=== PATIENT | female | born 1960 | race Caucasian/White ===

== ENCOUNTER 2023-12-19 22:34 | Inpatient (IN) | payer MEDICAID ==
[~2023-12-19] VITALS: Ht 162.6 cm; Wt 121.8 kg
[2023-12-19] MEDS: SODIUM CHLORIDE 0.9% 1,000 ML IV ONE (22:45)
[2023-12-19] MEDS: MORPHINE SULFATE 4 MG/ML SYR/VIAL IV ONE (22:45)
[2023-12-19] MEDS: ONDANSETRON HCL 4 MG/2 ML VIAL IV ONE (22:45)
--- NOTE | 2023-12-19 22:53 | ED.PDOC ---
GI ASSESSMENT HPI Comments 63-year-old female who came to ER via EMS for abdominal pain. Patient states she has been experiencing left upper quadrant abdominal pain since yesterday. Patient was seen at [facility], diagnostic made showing unremarkable results. Discharge improved. At home, patient made a sudden movement, and she started experiencing again upper quadrant abdominal pain, left-sided, associated now with bouts of nausea and vomiting. She denies any urinary symptoms. Denies any fever. Patient was given Zofran by paramedics while EN route to the emergency room. Chief Complaint: Abdominal pain Time Seen by MD: 22:52 Primary Care Provider: CLEVE Reviewed Notes: Nurses Notes Allergies: Coded Allergies: Penicillins (Verified Allergy, Unknown, 01/03/15) Information Source: Patient, Emergency Med Personnel Mode of Arrival: EMS Timing: Hours Duration: Intermittent Prehospital treatment: None Quality: Aching, Sharp Vomitus: Watery Stool: Normal Severity: Moderate Recent: None Recent Hx of: Abdominal Surgery Pain Location: LUQ Modifying Factors: Nothing Associated sign and symptoms: Nausea, Vomiting, Abdominal Pain Past Medical History PAST MEDICAL HISTORY: Kidney Stones Surgical History: Hernia Repair THIRD RIGGER History: No Pertinent THIRD RIGGER History Family History Family History: Reviewed,noncontributory to illness Social History Smoker: Non-Smoker Alcohol: Denies ETOH Use Drugs: Denies Drug Use Lives In: Home Constitutional: denies: chills, diaphoresis, fatigue, fever, malaise, sweats, weakness, others EENTM: denies: blurred vision, double vision, ear bleeding, ear discharge, ear drainage, ear pain, ear ringing, eye pain, eye redness, hearing loss, mouth pain, mouth swelling, nasal discharge, nose bleeding, nose congestion, nose pain, photophobia, tearing, throat pain, throat swelling, voice changes, others Respiratory: denies: cough, hemoptysis, orthopnea, SOB at rest, shortness of breath, SOB with excertion, stridor, wheezing, others Cardiovascular: denies: chest pain, dizzy spells, diaphoresis, Dyspnea on exertion, edema, irregular heart beat, left arm pain, lightheadedness, palpitations, PND, syncope, others Gastrointestinal: reports: abdominal pain, nausea, poor appetite, vomiting; denies: abdomen distended, blood streaked bowels, constipated, diarrhea, dysphagia, difficulty swallowing, hematemesis, melena, poor fluid intake, rectal bleeding, rectal pain, others Genitourinary: denies: abnormal vagina bleeding, burning, dyspareunia, dysuria, flank pain, frequency, hematuria, incontinence, pain, , vagina disch arge, urgency, others Neurological: denies: dizziness, fainting, headache, left sided numbness, left sided weakness, numbness, paresthesia, pre-existing deficit, right sided numbness, right sided weakness, seizure, speech problems, tingling, tremors, weakness, others Musculoskeletal: denies: back pain, gout, joint pain, joint swelling, muscle pain, muscle stiffness, neck pain, others Integumetry: denies: bruises, change in color, change in hair/nails, dryness, laceration, lesions, lumps, rash, wounds, others Allergic/Immunocompromised: denies: Difficulty Healing, Frequent Infections, Hives, Itching, others Hematologic/Lymphatic: denies: anemia, blood clots, easy bleeding, easy bruising, swollen glands, others Endocrine: denies: excessive hunger, excessive sweating, excessive thirst, excessive urination, flushing, intolerance to cold, intolerance to heat, unexplained weight gain, unexplained weight loss, others Psychiatric: denies: anxiety, bipolar disorder, depression, hopeless, panic disorder, schizophrenia, sleepless, suicidal, others Physical Exam General Appearance: No Apparent Distress, Normal HEENT: Normal ENT Inspection, Pharynx Normal, TMs Normal Neck: Full Range of Motion, Non-Tender, Normal, Normal Inspection Respiratory: Chest Non-Tender, Lungs Clear, No Accessory Muscle Use, No Respiratory Distress, Normal Breath Sounds Cardiovascular: No Edema, No JVD, No Murmur, No Gallop, Normal Peripheral Pulses, Regular Rate/Rhythm Breast Exam: Deferred Gastrointestinal: LUQ, No Organomegaly, No Pulsatile Mass, Normal Bowel Sounds, Soft, Tenderness Genitalia: Deferred Pelvic: Deferred Rectal: Deferred Extremities: No calf tenderness, Normal capillary refill, Normal inspection, Normal range of motion, Non-tender, No pedal edema Musculoskeletal : Apperance: Normal Neurologic: Alert, as400 operator II-XII nml as Tested, No Motor Deficits, Normal Affect, Normal Mood, No Sensory Deficits Cerebellar Function: Normal Reflexes: Normal Skin: Dry, Normal Color, Warm Lymphatic: No Adenopathy Was a procedure done? Was a procedure done?: No GI differential Dx Differential Diagnosis: Bowel Obstruction, Diverticular disease, Gastritis/PUD, Gastroenteritis, Pancreatitis, UTI, Urolithiasis X-Ray, Labs, Meds, VS Vital Signs Date Time Temp Pulse Resp B/P (MAP) Pulse Ox O2 Delivery O2 Flow Rate FiO2 12/19/23 23:50 100 12/19/23 23:49 101 14 126/44 12/19/23 23:12 98.9 101 17 147/74 (98) 97 98.9 12/19/23 22:51 103 12/19/23 22:45 101 15 141/74 12/19/23 22:34 97.2 104 20 166/108 (127) 98 Lab Test 12/19/23 23:10 Range/Units White Blood Count 14.4 H 4.4-10.8 10^3/uL Red Blood Count 4.07 4.0-5.20 10^6/uL Hemoglobin 11.9 L 12.2-16.2 g/dL Hematocrit 36.5 36.0-46.0 % Mean Corpuscular Volume 89.8 80.0-100.0 fL Mean Corpuscular Hemoglobin 29.2 28.0-32.0 pg Mean Corpuscular Hemoglobin Concent 32.6 32.0-36.0 g/dL Red Cell Distribution Width 13.4 11.8-14.3 % Platelet Count 320 140-450 10^3/uL Mean Platelet Volume 7.4 6.9-10.8 fL Neutrophils (%) (Auto) 76.6 37.0-80.0 % Lymphocytes (%) (Auto) 16.0 10.0-50.0 % Monocytes (%) (Auto) 6.4 0.0-12.0 % Eosinophils (%) (Auto) 0.4 0.0-7.0 % Basophils (%) (Auto) 0.6 0.0-2.0 % Neutrophils # (Auto) 11.1 H 1.6-8.6 10 ^3/uL Lymphocytes # (Auto) 2.3 0.4-5.4 10 ^3/uL Monocytes # (Auto) 0.9 0-1.3 10 ^3/uL Eosinophils # (Auto) 0.1 0-0.8 10 ^3/uL Basophils # (Auto) 0.1 0-0.2 10 ^3/uL Nucleated Red Blood Cells 0.0 % Sodium Level 140 136-145 mmol/L Potassium Level 4.3 3.5-5.1 mmol/L Chloride Level 107 98-107 mmol/L Carbon Dioxide Level 22 20-31 mmol/L Anion Gap 11 5-15 Blood Urea Nitrogen 18 9-23 mg/dL Creatinine 1.13 H 0.550-1.02 mg/dL Glomerular Filtration Rate Calc 55 >90 mL/min BUN/Creatinine Ratio 15.9 10.0-20.0 Serum Glucose 143 H 74-106 mg/dL Calcium Level 9.9 8.7-10.4 mg/dL Total Bilirubin 1.0 0.2-1.0 mg/dL Aspartate Amino Transferase (AST) 27 13-40 U/L Alanine Aminotransferase (ALT) 16 7-40 U/L Alkaline Phosphatase 104 46-116 U/L Troponin I High Sensitivity 1250 *H </=34 ng/L Total Protein 7.1 5.7-8.2 g/dL Albumin 4.8 3.2-4.8 g/dL Current Medications Medications (Trade) Dose Ordered Sig/Jessica Route Start Time Stop Time Status Last Admin Sodium Chloride 1,000 ml @ 1,000 mls/hr Q1H ONCE IV 12/19/23 22:45 12/19/23 23:44 DC 12/19/23 22:45 Ondansetron HCl (Zofran) 4 mg ONCE ONCE IV 12/19/23 22:45 12/19/23 22:46 DC 12/19/23 22:45 Morphine Sulfate 4 mg ONCE ONCE IV 12/19/23 22:45 12/19/23 22:46 DC 12/19/23 22:45 Time of 1ST Reevaluation: 22:48 Reevaluation 1ST: Unchanged Patient Education/Counseling: Diagnosis, Treatment Family Education/Counseling: No Family Present Departure 1 Departure Time of Disposition: 01:31 (Patient with a large kidney mass and elevated troponin. Patient will be admitted for further workup) Impression: Primary Impression: Left kidney mass Additional Impressions: NSTEMI (non-ST elevated myocardial infarction) Intractable abdominal pain Disposition: ADMITTED INPATIENT Admit to: Med Surg Condition: Guarded Critical Care Note Critical Care Time?: Yes Critical care comment: Intractable abdominal pain Authorized and Performed by: Joide Wilburn MD Total critical care time: Approximately 48 minutes Due to a high probability of clinically significant, life threatening deterioration, the patient required my highest level of preparedness to intervene emergently and I personally spent this critical care time directly and personally managing the patient. This critical care time included obtaining a history; examining the patient; pulse oximetry; ordering and review of studies; arranging urgent treatment with development of a management plan; evaluation of patient's response to treatment; frequent reassessment; and, discussions with other providers. This critical care time was performed to assess and manage the high probability of imminent, life-threatening deterioration that could result in multi-organ failure. It was exclusive of separately billable procedures and treating other patients and teaching time. Please see my other sections and the rest of the note for further information on patient assessment and treatment. Stability Stability form required: No Heart Score Heart Score: Heart Score Response (Comments) Value History N/A 0 EKG N/A 0 Age N/A 0 Risk Factors N/A 0 Troponin N/A 0 Total 0 I personally scribed for JODIE WILBURN MD ([email or web address]) on 12/19/23 at 22:52. Electronically submitted by Vinh Gomez ([email or web address]). JODIE WILBURN MD Dec 19, 2023 22:52
[2023-12-19 23:26] LABS: Basophils # (auto) 0.1 10 ^3/uL (0-0.2); Basophils % (auto) 0.6 % (0.0-2.0); Eosinophils # (auto) 0.1 10 ^3/uL (0-0.8); Eosinophils % (auto) 0.4 % (0.0-7.0); Hematocrit 36.5 % (36.0-46.0); Hemoglobin 11.9 g/dL (12.2-16.2); Lymphocytes # (auto) 2.3 10 ^3/uL (0.4-5.4); Mean Corpuscular Hemoglobin 29.2 pg (28.0-32.0); Mean Corpuscular Hgb Conc. 32.6 g/dL (32.0-36.0); Mean Corpuscular Volume 89.8 fL (80.0-100.0); Monocytes # (auto) 0.9 10 ^3/uL (0-1.3); Monocytes % (auto) 6.4 % (0.0-12.0); Neutrophils # (auto) 11.1 10 ^3/uL (1.6-8.6); Neutrophils % (auto) 76.6 % (37.0-80.0); Platelet Count (auto) 320 10^3/uL (140-450); Red Blood Cells 4.07 10^6/uL (4.0-5.20); Red Cell Distribution Width 13.4 % (11.8-14.3); White Blood Cell 14.4 10^3/uL (4.4-10.8)
[2023-12-19 23:52] LABS: Alanine Aminotransferase 16 U/L (7-40); Albumin 4.8 g/dL (3.2-4.8); Alkaline Phosphatase 104 U/L (46-116); Anion Gap 11 (5-15); Aspartate Aminotransferase 27 U/L (13-40); BUN/Creatinine Ratio 15.9 (10.0-20.0); Blood Urea Nitrogen 18 mg/dL (9-23); Calcium 9.9 mg/dL (8.7-10.4); Carbon Dioxide 22 mmol/L (20-31); Chloride 107 mmol/L (98-107); Glucose 143 mg/dL (74-106); Potassium 4.3 mmol/L (3.5-5.1); Sodium 140 mmol/L (136-145)
[2023-12-19 23:53] LABS: Total Protein 7.1 g/dL (5.7-8.2)
[2023-12-20] VITALS (8 sets, daily range): BP systolic 134–145; BP diastolic 57–73; PULSE 70–105; RESP 16–20; TEMP 97.8–98.7; O2SAT 93–100
[2023-12-20] MEDS: IOHEXOL 300 MG/ML 100ML BOTTLE IJ ONE ×2 (00:19→14:18)
[2023-12-20] MEDS ORDERED: HYDROcodone-ACET 5/325MG TAB PO PRN ×2 (01:00→01:15)
[2023-12-20] MEDS ORDERED: DEXTROSE (50%) 50ML SYRG IV PRN (01:00)
[2023-12-20] MEDS: levoFLOXacin 500MG 100 ML IV ONE (01:00)
[2023-12-20] MEDS ORDERED: NITROGLYCERIN 0.4 MG SL TAB SL PRN ×2 (01:00→01:15)
[2023-12-20] MEDS ORDERED: ACETAMINOPHEN 325 MG TAB PO PRN (01:15)
[2023-12-20] MEDS ORDERED: MORPHINE SULFATE INJ 2 MG/ml SYRG IV PRN (01:15)
[2023-12-20] MEDS: SODIUM CHLORIDE 0.9% 1,000 ML IV SCH (01:15)
[2023-12-20] MEDS ORDERED: ONDANSETRON HCL 4 MG/2 ML VIAL IV PRN (01:15)
--- NOTE | 2023-12-20 01:22 | DVH ---
Exam: CT CT AB PEL WO CON-NO ORAL OR IV History: llq pain Comparison Study: None available at time of dictation. Technique: Multidetector spiral CT of the abdomen was performed from lung bases to pubic symphysis. Imaging was performed without IV contrast. Axial, coronal and sagittal multiplanar reformats were ob tained from the axial data set by the technologist. Radiation Dose : 1. Abdomen/Pelvis: CTDIvol 28 mGy, DLP 1469 mGy*cm. Findings: Evaluation of solid organs is limited due to lack of intravenous contrast use. Lung Bases: No acute or significant lung base finding. Normal heart size. No pleural or pericardial effusion. Liver: The liver is normal in size. No focal lesions. Gallbladder and Biliary Tree: Unremarkable Spleen: Unremarkable Pancreas: The pancreas is grossly normal in appearance. Adrenal Glands: Unremarkable Kidneys: Right kidney 3 cm hypodense lesion. The left kidney demonstrates several hypodense lesions a nd internal calcification. There is mild left perirenal fat stranding. The left kidney superior pole demonstrates a potential mass measuring 6.76 cm. Bladder: Grossly unremarkable for degree of distention. Bowel: The stomach is grossly normal in appearance. Small bowel and colon are normal in caliber and d istribution. Normal appendix is visualized in the right lower quadrant without findings of appendici tis. Sigmoid colon diverticulosis. Ascites: Absent Lymphadenopathy: No mesenteric, retroperitoneal or periportal lymphadenopathy. Abdominal Wall and Mesentery: Unremarkable. Vasculature: The visualized abdominal aorta is normal in size and caliber. Evaluation of abdominal a nd pelvic vessels is limited due to lack of intravenous contrast. Pelvic Organs: Unremarkable Musculoskeletal: No aggressive focal bony lesions, acute fractures or dislocation. Severe bilateral h ip degenerative changes. Large osteophytes in the lower lumbar spine. IMPRESSION: Left kidney superior pole mass measuring 6.7 cm in maximum diameter with lobulated contours atrial ca lcifications. Limited evaluation without IV contrast. This is concerning for malignancy until proven otherwise. Right kidney 3 cm hypodense lesion which can also be further evaluated with contrast-enhanced MRI or ultrasound. Ancillary findings as described above.
--- NOTE | 2023-12-20 01:30 | DVHHPRES ---
History of Present Illness Resident Creating Document: LONNIE HUBER RESIDENT History of Present Illness This is a 63-year-old female with past medical history of hypertension, kidney stone, prediabetes presented to the ED with a chief complaint of severe left flank pain for 8 hours prior to this admission. According to the patient the pain was crampy in nature 20/10 localized to the left flank with no aggravating and relieving factor and associated with vomiting. First she felt the pain on Saturday and went to [facility] where she received pain management and two prescription 1 for ibuprofen and another one for narcotic that is currently on back order and she was advised to return if the pain persisted. She reports having a bowel movement on Saturday but none since which she believes may be due to the medication. She had a history of kidney stones 7-8 months ago and experienced a similar pain and took 45 days to pass the stone. She denies chest pain, shortness of breath, dizziness, diaphoresis, hematuria or any change in bowel and bladder movement. PCP: Dr. Melissa watts Cardiovascular: HTN Past Medical History Hypertension, kidney stone, prediabetes Past Surgical History Hernia surgery 20 years ago Family History: None Smoke: No ALCOHOL: none Drugs: None Lives: with Family Review of Systems Constitutional: No: Fever, Chills, Sweats, Weakness, Malaise, Other Eyes: No: Pain, Vision change, Conjunctivae inflammation, Eyelid inflammation, Other, Redness ENT: No: Ear pain, Ear discharge, Nose pain, Nose discharge, Nose congestion, Mouth pain, Mouth swelling, Throat pain, Throat swelling, Other Respiratory: No: Cough, Dry, Shortness of breath, SOB with excertion, Wheezing, Hemoptysis, Pleuritic Pain, Sputum, Wheezing, Other Cardiovascular: No: Chest Pain, Palpitations, Orthopnea, Paroxysmal Noc. Dyspnea, Edema, Lt Headedness, Other Gastrointestinal: Nausea, Vomiting, Abdominal Pain, Constipation; No: Diarrhea, Melena, Hematochezia, Other Genitourinary: No Dysuria, No Frequency, No Incontinence, No Hematuria, No Retention, No Other Musculoskeletal: No: other, neck pain, shoulder pain, arm pain, back pain, hand pain, leg pain, foot pain Skin: No: Rash, Lesions, Jaundice, Bruising, Other Neurological: No: Weakness, Numbness, Incoordination, Change in speech, Confusion, Seizures, Other Allergies: Coded Allergies: Penicillins (Verified Allergy, Unknown, 01/03/15) Medications Current Medications Medications Dose Ordered Sig/Jessica Route Start Time Stop Time Status Last Admin Dose Admin Sodium Chloride 10 ml Q8HR IV 12/20/23 06:00 Sodium Chloride 1,000 ml @ 75 mls/hr [id number] IV 12/20/23 01:15 Acetaminophen 325 mg Q4HP PRN PO 12/20/23 01:15 Acetaminophen/ Hydrocodone Bitart 1 tab Q4HP PRN PO 12/20/23 01:15 UNV Ondansetron HCl 4 mg Q4HP PRN IV 12/20/23 01:15 UNV Nitroglycerin 0.4 mg Q5MINP PRN SL 12/20/23 01:15 UNV Morphine Sulfate 2 mg Q30M PRN IV 12/20/23 01:15 UNV Levofloxacin/ Dextrose 100 ml @ 100 mls/hr DAILY IV 12/21/23 10:00 Diagnostic Test (Pha) 1 strip ACHS 12/20/23 07:00 Insulin Human Regular ACHS SC 12/20/23 07:00 Dextrose 50 ml UD PRN IV 12/20/23 01:00 Acetaminophen/ Hydrocodone Bitart 1 tab Q4HP PRN PO 12/20/23 01:00 Ondansetron HCl 4 mg Q4HP PRN IV 12/20/23 01:00 Nitroglycerin 0.4 mg Q5MINP PRN SL 12/20/23 01:00 Morphine Sulfate 2 mg Q30M PRN IV 12/20/23 01:00 Morphine Sulfate 2 mg Q4HPRN PRN IV 12/20/23 01:30 UNV Exam Vital Signs Vital Signs Date Time Temp Pulse Resp B/P (MAP) Pulse Ox O2 Delivery O2 Flow Rate FiO2 12/19/23 23:50 100 12/19/23 23:49 14 126/44 12/19/23 23:12 98.9 97 98.9 General Appearance: Alert, Oriented X3, Cooperative, moderate distress HEENT: Atraumatic, PERRLA, EOMI, Mucous membr. moist/pink Respiratory: Clear to auscultation, Normal air movement Cardiovascular: Regular rate, Normal S1, Normal S2, No murmurs Abdominal: Other (Abdomen is soft and tenderness in the left flank region, normal bowel sounds, no hepatosplenomegaly and no masses) Extremities: No clubbing, No cyanosis, No edema, Normal pulses, No tenderness/swelling Skin: No rashes, No breakdown, No significant lesion Neuro: Normal gait, Normal speech, Strength at 5/5 X4 ext, Normal tone, Sensation intact, Other (Grossly intact cranial nerves) Psych/Mental Status: Mental status NL, Mood NL Labs/Xrays Labs Test 12/19/23 23:10 Range/Units White Blood Count 14.4 H 4.4-10.8 10^3/uL Red Blood Count 4.07 4.0-5.20 10^6/uL Hemoglobin 11.9 L 12.2-16.2 g/dL Hematocrit 36.5 36.0-46.0 % Mean Corpuscular Volume 89.8 80.0-100.0 fL Mean Corpuscular Hemoglobin 29.2 28.0-32.0 pg Mean Corpuscular Hemoglobin Concent 32.6 32.0-36.0 g/dL Red Cell Distribution Width 13.4 11.8-14.3 % Platelet Count 320 140-450 10^3/uL Mean Platelet Volume 7.4 6.9-10.8 fL Neutrophils (%) (Auto) 76.6 37.0-80.0 % Lymphocytes (%) (Auto) 16.0 10.0-50.0 % Monocytes (%) (Auto) 6.4 0.0-12.0 % Eosinophils (%) (Auto) 0.4 0.0-7.0 % Basophils (%) (Auto) 0.6 0.0-2.0 % Neutrophils # (Auto) 11.1 H 1.6-8.6 10 ^3/uL Lymphocytes # (Auto) 2.3 0.4-5.4 10 ^3/uL Monocytes # (Auto) 0.9 0-1.3 10 ^3/uL Eosinophils # (Auto) 0.1 0-0.8 10 ^3/uL Basophils # (Auto) 0.1 0-0.2 10 ^3/uL Nucleated Red Blood Cells 0.0 % Sodium Level 140 136-145 mmol/L Potassium Level 4.3 3.5-5.1 mmol/L Chloride Level 107 98-107 mmol/L Carbon Dioxide Level 22 20-31 mmol/L Anion Gap 11 5-15 Blood Urea Nitrogen 18 9-23 mg/dL Creatinine 1.13 H 0.550-1.02 mg/dL Glomerular Filtration Rate Calc 55 >90 mL/min BUN/Creatinine Ratio 15.9 10.0-20.0 Serum Glucose 143 H 74-106 mg/dL Calcium Level 9.9 8.7-10.4 mg/dL Total Bilirubin 1.0 0.2-1.0 mg/dL Aspartate Amino Transferase (AST) 27 13-40 U/L Alanine Aminotransferase (ALT) 16 7-40 U/L Alkaline Phosphatase 104 46-116 U/L Troponin I High Sensitivity 1250 *H </=34 ng/L Total Protein 7.1 5.7-8.2 g/dL Albumin 4.8 3.2-4.8 g/dL Assessment/Plan Assessment/Plan Assessment and plan : # Severe left flank pain likely due to left renal mass - CT abdomen pelvis revealed Left kidney superior pole mass measuring 6.7 cm in maximum diameter with lobulated contours atrial calcifications. - patient is NPO - IV normal saline at 75 mL hour - IV morphine 2 mg q.4 p.r.n. - IV ondansetron 4 mg q.4 p.r.n. - Consulted Urology # NSTEMI type 2 secondary to above - Troponin trends are 1250>1186 - EKG revealed sinus rhythm with nonspecific ST-T changes. - Consulted Cardiology. # SHARRI likely due to hemodynamically mediated /VMN - IV normal saline at 75 per hour - Monitor BMP # Prediabetes - counseled patient regarding healthy low carb diet, lifestyle modification and physical exercise. Goal of care discussed with the patient for more than 20 minutes full code Plan of treatment discussed with Dr. Pratt. Plan discussed with: Patient, Other My Orders Orders - LONNIE HUBER RESIDENT Procedure Category Date Status Time Admit ADMIT 12/20/23 Transmitted 01:01 Code Status CODE 12/20/23 Transmitted 01:01 Sodium Chloride Lock PHA 12/20/23 In Process (Saline Lock Ns) 06:00 Sodium Chloride 0.9% PHA 12/20/23 In Process 01:15 Oxygen Per Hour RT 12/20/23 Transmitted 01:01 Acetaminophen Tablet PHA 12/20/23 In Process (Tylenol Tablet) 01:15 Complete Blood Count LAB 12/21/23 Verified 04:00 Comprehensive LAB 12/21/23 Verified Metabolic Panel 04:00 Npo (Nothing By DIET 12/20/23 Transmitted Mouth) Diet Breakfast Echo 2d Mode Cardiac US 12/20/23 Logged DOP 01:01 Oxygen By Nasal RT 12/20/23 Transmitted Cannula 01:01 Stat Ekg For Chest [facility] 12/20/23 In Process Pain 01:01 Notify Of Changes [facility] 12/20/23 In Process From Base 01:01 Tax Audit Manager For [facility] 12/20/23 In Process 24 Hours 01:01 Emergency Dysrhythmia [facility] 12/20/23 In Process Protocol 01:01 Rhythm Strips Once [facility] 12/20/23 In Process Every Shift 01:01 Troponin-I Hs LAB 12/20/23 Logged 01:25 Troponin-I Hs LAB 12/20/23 Logged 02:25 Troponin-I Hs LAB 12/20/23 Logged 04:25 Abdomen Complete US 12/20/23 Logged Sonogram 01:25 Morphine Sulfate PHA 12/20/23 Logged Injection 01:30 Hemoglobin A1c LAB 12/20/23 Verified 01:28 Thyroid Stimulating LAB 12/20/23 Verified Hormone 01:28 Vitamin B12 LAB 12/20/23 Verified 01:28 Vitamin D, 25-Hydroxy LAB 12/20/23 Verified 01:28 Magnesium LAB 12/20/23 Verified 01:28 Date of Service: Dec 20, 2023 Billing Provider: HERNANDEZ PRATT MD Common Visit Codes: [id number] INP/OBS CARE (HIGH) NEEMAJAYDENLONNIE RESIDENT Dec 20, 2023 01:30 HERNANDEZ PRATT MD Dec 20, 2023 10:25
[2023-12-20] MEDS: MORPHINE SULFATE INJ 2 MG/ml SYRG IV PRN ×3 (01:32→18:20)
[2023-12-20] MEDS: SODIUM CHLORIDE 0.9% 500 ML IV ONE (03:26)
[2023-12-20] MEDS: SODIUM CHLOR 0.9% PF (SALINE LOCK) 10ML VIAL/SYR IV SCH (06:00)
--- NOTE | 2023-12-20 06:45 | ECG ---
[facility] Test Date: 2023-12-19 Test Time: 22:51:57 Pat Name: BRIGHT ESPINO [facility] F Study Lead: FAY : 1960 Requested By: JODIE BAI Order Number: [id number] Reading MD: Dhiraj Haji Measurements Intervals [place] Rate: 103 P: 61 SD: 193 QRS: -62 QRSD: 85 T: 96 QT: 350 QTc: 458 Interpretive Statements Sinus tachycardia Ventricular trigeminy Left anterior fascicular block Anteroseptal infarct, age indeterminate Baseline wander in lead(s) II,III,aVF Electronically Signed On 12-20-2023 9:50:25 PDT by Dhiraj Haji Please click the below link to view image of tracing.
[2023-12-20] MEDS: ACCU-CHEK COMFORT CURVE STRIP VI SCH (07:11)
[2023-12-20] MEDS: InsuLIN REG 1unit/0.01ml Soln (100units/ml) SC SCH (07:14)
--- NOTE | 2023-12-20 09:11 | DVH ---
CHEST RADIOGRAPH Indication:chest pain Technique: Single frontal view of the chest was obtained Comparison: None FINDINGS: Lines and Tubes: None Lungs: No focal consolidation. Pleura: No effusion. No pneumothorax. Cardiomediastinal contours: Unremarkable Bones: No acute osseous abnormality. IMPRESSION: Pulmonary edema.
--- NOTE | 2023-12-20 09:21 | DVHINCON2 ---
Date of service: Dec 20, 2023 Referring Physician hospitalist Reason for Consultation renal mass History of Present Illness History Source: Patient Exam Limitations: No limitations HPI 63 yo obese female with complaint of left flank pain for the past week with one episode of hematuria about 3 months ago. She was seen a few days ago at [facility] and was told everything was normal. She had kidney stone passage about 7 months ago. Urology consulted for finding of large renal mass suspicious for RCC. Home Meds Reported Medications Aspirin (Aspir-Low) 81 Mg Tab, 81 MG PO DAILY for 30 Days, MG 12/20/23 Pravastatin Sodium (PRAVACHOL TABLET) 20 Mg Tb, 1 TAB PO DAILY 12/20/23 Cholecalciferol (VITAMIN D3) 2,000 Unit Tab, 1 CAP PO DAILY 12/20/23 Losartan Potassium (Losartan Potassium) 50 Mg Tab, 1 TAB PO DAILY 12/20/23 Metformin Hydrochloride (Metformin Hcl Er) 500 Mg Tab, 1 TAB PO BID 12/20/23 Review of Systems Constitutional: Other (headache, hot flashes) Gastrointestinal: Nausea, Vomiting Psychiatric: Anxiety H&P Exam Vital Signs Vital Signs Date Time Temp Pulse Resp B/P (MAP) Pulse Ox O2 Delivery O2 Flow Rate FiO2 12/20/23 05:58 92 19 Room Air* 0 21 12/20/23 05:54 130/72 12/20/23 04:01 96 12/19/23 23:12 98.9 98.9 General Appeara: Well developed, Well nourished, Normal Appearance, Obese Pulmonary/Respiratory: Normal inspection, Normal breath sounds, Chest non- tender, Lungs clear Cardiovascular/Chest: Normal inspection, Regular rate, Normal Rhythm Abdominal Exam: Normal bowel sounds, Soft, No tenderness, No hepatospenomegaly, No masses Abdominal Pain Onset Location: Flank Back Exam: Left CVA tenderness Neuro/Mental St: Alert, Oriented Appearance: Appropriate appearance, Appropriate insight Eye contact/ Speech: Cooperative, Good eye contact, Normal speech Skin Exam: Normal inspection, Normal color, Warm/dry Labs/Xrays [address] [address] Ph: [phone] DIAGNOSTIC IMAGING Diagnostic Imaging Report : [id number] Signed PATIENT: BRIGHT ESPINO ACCT: [id number] UNIT: [id number] : 1960 LOC: [facility] ROOM / BED: 0251T / B AGE / SEX: 63 / F ADM STATUS: ADM IN SERVICE 1049 ORDERING PHYSICIAN: TRACY SAHU NP PROCEDURE(s): ABPEL - CT AB PELVIS W WO CON-IV ONLY REASON: RENAL MASS ORDER NUMBER(s): [id number], ACCESSION NUMBER(s): [id number] CT CT AB PELVIS W WO CON-IV ONLY History: RENAL MASS Comparison Study: None available at time of dictation. Technique: Multidetector spiral CT of the abdomen and pelvis was performed from lung bases to pubic symphysis. Initial imaging was done without IV contrast, f ollowed by post contrast images of the abdomen and pelvis. Intravenous contrast was administered during this examination. Multiphase imaging was obtained. Axial, coronal and sagittal multiplanar reformats were performed by the technologist on a separate workstation. Radiation Dose : CT Dose: CTDI volume is 38.94 mGy. Dose-length product is 4697.62 mGy*cm Findings: Lung Bases: Atelactasis and scarring in the lung bases. Liver: There is diffuse hepatic steatosis Gallbladder and biliary Tree: Unremarkable Spleen: Unremarkable Pancreas: The pancreas is normal in appearance without focal lesions or abnormal enhancement. Adrenal Glands: Unremarkable Kidneys: There is a heterogeneously enhancing mass in the upper pole of the left kidney measuring up to at least 81 mm. There are other smaller masses in the left kidney. There is mild left hydronephrosis with some increased density in the proximal left ureter. There is a simple appearing right renal cyst. Bladder: Grossly unremarkable for degree of distention. Bowel: The stomach is grossly normal in appearance. Small bowel and colon are normal in caliber and distribution. Normal appendix is visualized in the right lower quadrant without findings of appendicitis. Sigmoid diverticulosis noted. Ascites: Absent Lymphadenopathy: No mesenteric, retroperitoneal or periportal lymphadenopathy. Abdominal wall and Mesentery: Unremarkable. Vasculature: The visualized abdominal aorta is normal in size and caliber. Abdominal and pelvic vessels demonstrate normal enhancement. Pelvic Organs: Suspect a fibroid in the uterus. Musculoskeletal: No aggressive focal bony lesions, acute fractures or dislocation. IMPRESSION: 1. Heterogeneously enhancing mass replacing much of the upper pole of the left kidney with other smaller masses in the upper pole of the left kidney. Dilation of the proximal ureter with some high density. Findings are likely malignant with possible involvement of the ureter. Urology evaluation is recommended. CT guided biopsy could be performed if clinically indicated. 2. Hepatic steatosis. Right renal cyst. Diverticulosis. Suspected uterine fibroid. This could be further evaluated with ultrasound Radiation optimization: All CT scans at this facility use at least one of these dose optimization techniques: Automated exposure control mA and/or kV adjustment per patient size (includes targeted exams where dose is matched to clinical indication) or iterative reconstruction. HS:Y ATED BY: ED GANDHI MD DICTATED DATE/TIME: 12/20/231513 SIGNED BY: ED GANDHI MD SIGNED DATE/TIME: 12/20/231513 CC: [place] [id number] Ph: [phone] DIAGNOSTIC IMAGING Diagnostic Imaging Report : [id number] Signed PATIENT: BRIGHT ESPINO ACCT: [id number] UNIT: [id number] : 1960 LOC: [facility] ROOM / BED: [facility] / AGE / SEX: 63 / F ADM STATUS: ADM IN SERVICE 1138 ORDERING PHYSICIAN: GENTRY WASHBURN MD PROCEDURE(s): KIDUS - KIDNEY REASON: ckd ORDER NUMBER(s): [id number], ACCESSION NUMBER(s): [id number] RENAL ULTRASOUND CLINICAL HISTORY: ckd TECHNIQUE: Multiple ultrasound images of the kidneys and bladder were obtained. COMPARISON: CT abdomen 12/20/2023 FINDINGS: The right kidney measures 12.6 cm in length. The left kidney measures 14.8 cm. There is a 4.0 cm right upper pole cyst. There is a 7.4 x 4.8 cm nodular isoechoic structure in the upper pole of the right kidney. There is no significant hydronephrosis. There is no evidence of nephrolithiasis. Bladder prevoid volume measures 173 cc. Bladder grossly appears unremarkable. IMPRESSION: 1. Nonspecific 7.4 x 4.8 cm nodular isoechoic structure in the upper pole of the left kidney. This likely represents a renal mass. Consider further evaluation with follow-up CT abdomen and pelvis with contrast. HS:Y ATED BY: TEDDY STEELE MD DICTATED DATE/TIME: 12/20/231251 SIGNED BY: TEDDY STEELE MD SIGNED DATE/TIME: 12/20/231251 CC: [place] [id number] Ph: [phone] DIAGNOSTIC IMAGING Diagnostic Imaging Report : [id number] Signed PATIENT: BRIGHT ESPINO ACCT: [id number] UNIT: [id number] : 1960 LOC: TELE ROOM / BED: [address] [place] [address] AGE / SEX: 63 / F ADM STATUS: ADM IN SERVICE 44 ORDERING PHYSICIAN: JODIE BAI MD PROCEDURE(s): ABPL - CT AB PEL WO CON-NO ORAL OR IV REASON: llq pain ORDER NUMBER(s): [id number], ACCESSION NUMBER(s): [id number] Exam: CT CT AB PEL WO CON-NO ORAL OR IV History: llq pain Comparison Study: None available at time of dictation. Technique: Multidetector spiral CT of the abdomen was performed from lung bases to pubic symphysis. Imaging was performed without IV contrast. Axial, coronal and sagittal multiplanar reformats were obtained from the axial data set by the technologist. Radiation Dose : 1. Abdomen/Pelvis: CTDIvol 28 mGy, DLP 1469 mGy*cm. Findings: Evaluation of solid organs is limited due to lack of intravenous contrast use. Lung Bases: No acute or significant lung base finding. Normal heart size. No pleural or pericardial effusion. Liver: The liver is normal in size. No focal lesions. Gallbladder and Biliary Tree: Unremarkable Spleen: Unremarkable Pancreas: The pancreas is grossly normal in appearance. Adrenal Glands: Unremarkable Kidneys: Right kidney 3 cm hypodense lesion. The left kidney demonstrates several hypodense lesions and internal calcification. There is mild left perirenal fat stranding. The left kidney superior pole demonstrates a potential mass measuring 6.76 cm. Bladder: Grossly unremarkable for degree of distention. Bowel: The stomach is grossly normal in appearance. Small bowel and colon are normal in caliber and distribution. Normal appendix is visualized in the right lower quadrant without findings of appendicitis. Sigmoid colon diverticulosis. Ascites: Absent Lymphadenopathy: No mesenteric, retroperitoneal or periportal lymphadenopathy. Abdominal Wall and Mesentery: Unremarkable. Vasculature: The visualized abdominal aorta is normal in size and caliber. Evaluation of abdominal and pelvic vessels is limited due to lack of intravenous contrast. Pelvic Organs: Unremarkable Musculoskeletal: No aggressive focal bony lesions, acute fractures or dislocation. Severe bilateral hip degenerative changes. Large osteophytes in the lower lumbar spine. IMPRESSION: Left kidney superior pole mass measuring 6.7 cm in maximum diameter with lobulated contours atrial calcifications. Limited evaluation without IV contrast. This is concerning for malignancy until proven otherwise. Right kidney 3 cm hypodense lesion which can also be further evaluated with contrast-enhanced MRI or ultrasound. Ancillary findings as described above. ATED BY: ISIAH ESCOBAR DO DICTATED DATE/TIME: 12/20/23118 SIGNED BY: ISIAH ESCOBAR DO SIGNED DATE/TIME: 12/20/23118 CC: Labs Test 12/20/23 07:08 12/20/23 02:00 12/19/23 23:10 Range/Units POC Glucose 134 H 70-106 mg/dl Lactic Acid Level 1.7 0.4-2.0 mmol/L Troponin I High Sensitivity 1186 *H </=34 ng/L Thyroid Stimulating Hormone (TSH) 2.16 0.55-4.78 uIU/mL White Blood Count 14.4 H 4.4-10.8 10^3/uL Red Blood Count 4.07 4.0-5.20 10^6/uL Hemoglobin 11.9 L 12.2-16.2 g/dL Hematocrit 36.5 36.0-46.0 % Mean Corpuscular Volume 89.8 80.0-100.0 fL Mean Corpuscular Hemoglobin 29.2 28.0-32.0 pg Mean Corpuscular Hemoglobin Concent 32.6 32.0-36.0 g/dL Red Cell Distribution Width 13.4 11.8-14.3 % Platelet Count 320 140-450 10^3/uL Mean Platelet Volume 7.4 6.9-10.8 fL Neutrophils (%) (Auto) 76.6 37.0-80.0 % Lymphocytes (%) (Auto) 16.0 10.0-50.0 % Monocytes (%) (Auto) 6.4 0.0-12.0 % Eosinophils (%) (Auto) 0.4 0.0-7.0 % Basophils (%) (Auto) 0.6 0.0-2.0 % Neutrophils # (Auto) 11.1 H 1.6-8.6 10 ^3/uL Lymphocytes # (Auto) 2.3 0.4-5.4 10 ^3/uL Monocytes # (Auto) 0.9 0-1.3 10 ^3/uL Eosinophils # (Auto) 0.1 0-0.8 10 ^3/uL Basophils # (Auto) 0.1 0-0.2 10 ^3/uL Nucleated Red Blood Cells 0.0 % Sodium Level 140 136-145 mmol/L Potassium Level 4.3 3.5-5.1 mmol/L Chloride Level 107 98-107 mmol/L Carbon Dioxide Level 22 20-31 mmol/L Anion Gap 11 5-15 Blood Urea Nitrogen 18 9-23 mg/dL Creatinine 1.13 H 0.550-1.02 mg/dL Glomerular Filtration Rate Calc 55 >90 mL/min BUN/Creatinine Ratio 15.9 10.0-20.0 Serum Glucose 143 H 74-106 mg/dL Calcium Level 9.9 8.7-10.4 mg/dL Total Bilirubin 1.0 0.2-1.0 mg/dL Aspartate Amino Transferase (AST) 27 13-40 U/L Alanine Aminotransferase (ALT) 16 7-40 U/L Alkaline Phosphatase 104 46-116 U/L Total Protein 7.1 5.7-8.2 g/dL Albumin 4.8 3.2-4.8 g/dL Assessment/Plan Problem List: (1) Left kidney mass Plan left nephroureterectomy TBA on outpt basis. june d/c home when medically stable signing off Plan discussed with: TRACY Schwartz NP Dec 20, 2023 09:21
--- NOTE | 2023-12-20 09:49 | DVHINCON2 ---
Date Seen: Dec 20, [address] Saldaña Reason for Consultation NSTEMI History of Present Illness 63-year-old female patient with past medical history of hypertension, kidney stones, prediabetes who presented to the emergency department with a chief complaint of severe left flank pain rated as 10/10 intensity with no aggravating or relieving factors associated with vomiting nausea. Patient was examined at bedside she reports continue having left-sided flank pain and right sided flank pain rated as 8/10 intensity , she also reports having nausea with dry heaves but denies chest pain or shortness. Recent CT abdomen showed a renal mass for which a CT without and with contrast was ordered to rule out malignancy. Chest x-rays showed pulmonary edema for which fluids were stopped and patient was started on furosemide 20 mg IV b.i.d. BNP was ordered as the new echo showed 45% ejection fraction. Allergies: Coded Allergies: Penicillins (Verified Allergy, Unknown, 01/03/15) Home Meds Reported Medications Aspirin (Aspir-Low) 81 Mg Tab, 81 MG PO DAILY for 30 Days, MG 12/20/23 Pravastatin Sodium (PRAVACHOL TABLET) 20 Mg Tb, 1 TAB PO DAILY 12/20/23 Cholecalciferol (VITAMIN D3) 2,000 Unit Tab, 1 CAP PO DAILY 12/20/23 Losartan Potassium (Losartan Potassium) 50 Mg Tab, 1 TAB PO DAILY 12/20/23 Metformin Hydrochloride (Metformin Hcl Er) 500 Mg Tab, 1 TAB PO BID 12/20/23 Current Medications Current Medications Medications (Trade) Dose Ordered Sig/Jessica Route PRN Reason Start Time Stop Time Status Last Admin Sodium Chloride (Saline Lock Ns) 10 ml Q8HR IV 12/20/23 06:00 12/20/23 06:00 Sodium Chloride 1,000 ml @ 75 mls/hr [id number] IV 12/20/23 01:15 12/20/23 01:15 Acetaminophen (Tylenol Tablet) 325 mg Q4HP PRN PO MILD PAIN (1-3 PAIN SCALE) 12/20/23 01:15 Acetaminophen/ Hydrocodone Bitart (Ely 5/325MG Tab) 1 tab Q4HP PRN PO MODERATE PAIN (4-6 PAIN SCALE) 12/20/23 01:15 UNV Ondansetron HCl (Zofran) 4 mg Q4HP PRN IV NAUSEA / VOMITING 12/20/23 01:15 UNV Nitroglycerin (Ntrostat Sublingual) 0.4 mg Q5MINP PRN SL FOR CHEST PAIN 12/20/23 01:15 UNV Morphine Sulfate 2 mg Q30M PRN IV FOR CHEST PAIN 12/20/23 01:15 UNV Levofloxacin/ Dextrose 100 ml @ 100 mls/hr DAILY IV 12/21/23 10:00 Diagnostic Test (Pha) (Accu-Chek Comfort Curve T) 1 strip ACHS 12/20/23 07:00 12/20/23 07:11 Insulin Human Regular (InsuLIN R) ACHS SC 12/20/23 07:00 12/20/23 07:14 Dextrose 50 ml UD PRN IV Blood Sugar LESS THAN 60 12/20/23 01:00 Acetaminophen/ Hydrocodone Bitart (Ely 5/325MG Tab) 1 tab Q4HP PRN PO MODERATE PAIN (4-6 PAIN SCALE) 12/20/23 01:00 Ondansetron HCl (Zofran) 4 mg Q4HP PRN IV NAUSEA / VOMITING 12/20/23 01:00 Nitroglycerin (Ntrostat Sublingual) 0.4 mg Q5MINP PRN SL FOR CHEST PAIN 12/20/23 01:00 Morphine Sulfate 2 mg Q30M PRN IV FOR CHEST PAIN 12/20/23 01:00 12/20/23 01:32 Morphine Sulfate 2 mg Q4HPRN PRN IV SEVERE PAIN (7-10 PAIN SCALE) 12/20/23 01:30 12/20/23 05:24 Review of Systems Constitutional: No: Fever, Chills, Sweats, Weakness, Malaise, Other Eyes: No: Pain, Vision change, Conjunctivae inflammation, Eyelid inflammation, Other, Redness ENT: No: Ear pain, Ear discharge, Nose pain, Nose discharge, Nose congestion, Mouth pain, Mouth swelling, Throat pain, Throat swelling, Other Respiratory: No shortness of breaths, Wheezing, Hemoptysis, Pleuritic Pain, Sputum, Wheezing, Other Cardiovascular: No: Chest Pain, Palpitations, Orthopnea, Paroxysmal Noc. Dyspnea, Edema, Lt Headedness, Other Gastrointestinal: yes: Left flank pain 10/10 intensity sharp like No: Nausea, Vomiting, Abdominal Pain, Diarrhea, Constipation, Melena, Hematochezia, Other Musculoskeletal: No: other, neck pain, shoulder pain, arm pain, back pain, hand pain, leg pain, foot pain Neurological:; No: Weakness, Numbness, Incoordination, Change in speech, Confusion, Seizures Vital Signs Vital Signs Date Time Temp Pulse Resp B/P (MAP) Pulse Ox O2 Delivery O2 Flow Rate FiO2 12/20/23 05:58 92 19 Room Air* 0 21 12/20/23 05:54 130/72 12/20/23 04:01 96 12/19/23 23:12 98.9 98.9 Physical Exam Examination General Appearance: Alert, Oriented X3, Cooperative, moderate acute distress Respiratory: Clear to auscultation, Normal air movement Cardiovascular: Regular rate, Normal S1, Normal S2 Abdominal: Left-sided pain on palpation, no guarding, no rebound, Normal bowel sounds Extremities: No cyanosis, No edema, Normal pulses, No tenderness/swelling Skin: No rashes, No breakdown Neuro: Normal gait, Normal speech, Strength at 5/5 X4 ext, Normal tone, Sensation intact, Cranial nerves 3-12 NL, Reflexes 2+ Labs/Diagnostic Data Labs Test 12/20/23 07:08 12/20/23 02:00 12/19/23 23:10 Range/Units POC Glucose 134 H 70-106 mg/dl Lactic Acid Level 1.7 0.4-2.0 mmol/L Troponin I High Sensitivity 1186 *H </=34 ng/L Thyroid Stimulating Hormone (TSH) 2.16 0.55-4.78 uIU/mL White Blood Count 14.4 H 4.4-10.8 10^3/uL Red Blood Count 4.07 4.0-5.20 10^6/uL Hemoglobin 11.9 L 12.2-16.2 g/dL Hematocrit 36.5 36.0-46.0 % Mean Corpuscular Volume 89.8 80.0-100.0 fL Mean Corpuscular Hemoglobin 29.2 28.0-32.0 pg Mean Corpuscular Hemoglobin Concent 32.6 32.0-36.0 g/dL Red Cell Distribution Width 13.4 11.8-14.3 % Platelet Count 320 140-450 10^3/uL Mean Platelet Volume 7.4 6.9-10.8 fL Neutrophils (%) (Auto) 76.6 37.0-80.0 % Lymphocytes (%) (Auto) 16.0 10.0-50.0 % Monocytes (%) (Auto) 6.4 0.0-12.0 % Eosinophils (%) (Auto) 0.4 0.0-7.0 % Basophils (%) (Auto) 0.6 0.0-2.0 % Neutrophils # (Auto) 11.1 H 1.6-8.6 10 ^3/uL Lymphocytes # (Auto) 2.3 0.4-5.4 10 ^3/uL Monocytes # (Auto) 0.9 0-1.3 10 ^3/uL Eosinophils # (Auto) 0.1 0-0.8 10 ^3/uL Basophils # (Auto) 0.1 0-0.2 10 ^3/uL Nucleated Red Blood Cells 0.0 % Sodium Level 140 136-145 mmol/L Potassium Level 4.3 3.5-5.1 mmol/L Chloride Level 107 98-107 mmol/L Carbon Dioxide Level 22 20-31 mmol/L Anion Gap 11 5-15 Blood Urea Nitrogen 18 9-23 mg/dL Creatinine 1.13 H 0.550-1.02 mg/dL Glomerular Filtration Rate Calc 55 >90 mL/min BUN/Creatinine Ratio 15.9 10.0-20.0 Serum Glucose 143 H 74-106 mg/dL Calcium Level 9.9 8.7-10.4 mg/dL Total Bilirubin 1.0 0.2-1.0 mg/dL Aspartate Amino Transferase (AST) 27 13-40 U/L Alanine Aminotransferase (ALT) 16 7-40 U/L Alkaline Phosphatase 104 46-116 U/L Total Protein 7.1 5.7-8.2 g/dL Albumin 4.8 3.2-4.8 g/dL Assessment Pulmonary edema due to Heart failure mildly reduced ejection fraction 45% on exacerbation NSTEMI type 2, likely ischemic demand Left flank pain likely due to renal mass R/O diverticulitis Left renal mass, rule out malignancy Plan/Recommendation Troponin levels down trending MRI of the abdomen with and without contrast Furosemide 20 mg IV b.i.d. metoprolol 12,5 mg bid PO Ely 5/325 q.8 hours for moderate pain control Continue antibiotics per hospitalist Thank you for letting us participate in this case, there is no further workup from cardiology standpoint, we are signing off Case discussed with Dr. Caldwell Critical care, time spent: 45 minutes. Plan discussed with: Patient Date of Service: Dec 20, 2023 Billing Provider: DAMI CALDWELL MD Cardiology Common Codes: [id number] INP/OBS CARE (High) DES VARGHESE RESIDENT Dec 20, 2023 09:49
--- NOTE | 2023-12-20 10:13 | DVHSR ---
APPROVED REPORT EXAM: Two-dimensional and M-mode echocardiogram with Doppler and color Doppler. Blood Pressure: 130/72 mmHg INDICATION Chest Pain RISK FACTORS Obesity: Height: 5'4", Weight: 260 DIMENSIONS LVDd4.4 (3.8-5.7cm)LA (2D)3.6 (1.9-4.0cm)Aortic Root (2.0-3.7cm) LVDs2.7 (2.5-4.0cm)LA (MM) (1.9-4.0cm)Aortic Cusp Exc (1.5-2.0cm) EF (%) 45.0 (55-70%)Rt. Atrium (1.9-4.0cm)Asc. Aorta cm IVSd1.1 (0.7-1.1cm)RV (D) (1.8-2.4cm) PWd1.4 (0.7-1.1cm) Mitral Valve MitralMitral Stenosis E wave1.40m/sMV Mean GR.mmHg A wave2.07m/sMV Peak GR.mmHg E/A ratio0.72D MVAcm2 DECEL [id number] 1/2 Timems Aortic Valve Aortic ValveAortic Stenosis V11.08m/Mini Mean GR.5mmHg V21.58m/Mini Peak GR.10mmHg LVOT Diameter2.3 (1.8-2.4cm)Doppler AVA2.84cm2 Other Information Quality : Technically LimitedRhythm : Technically limited study due to body habitus. Conclusion Mildly reduced left ventricular systolic function estimated ejection fraction 45% in a global fashion . There is a grade 1 diastolic dysfunction. Normal right ventricular size and dimension. Sonya right ventricular systolic function. Normal biatrial size and dimension. Normal aortic valve structure and function. Normal mitral valve structure and function. Normal tricuspid valve structure and function. The pulmonary valve is grossly normal. No pericardial effusion.
[2023-12-20] MEDS: FUROSEMIDE 20 MG/2 ML VIAL IV ONE (11:30)
[2023-12-20 11:51] LABS: Anion Gap 8 (5-15); Calcium 9.6 mg/dL (8.7-10.4); Carbon Dioxide 25 mmol/L (20-31); Chloride 108 mmol/L (98-107); Potassium 4.2 mmol/L (3.5-5.1); Sodium 141 mmol/L (136-145)
[2023-12-20 11:56] LABS: Glucose 125 mg/dL (74-106)
[2023-12-20 11:57] LABS: BUN/Creatinine Ratio 13.3 (10.0-20.0); Blood Urea Nitrogen 15 mg/dL (9-23); Magnesium 1.9 mg/dL (1.6-2.6)
[2023-12-20 11:58] LABS: INR 1.08 (0.9-1.15); Partial Thromboplastin Time 27.2 SEC (24.5-34.5); Prothrombin Time 11.4 sec (9.3-11.8)
[2023-12-20 12:00] LABS: Basophils # (auto) 0 10 ^3/uL (0-0.2); Basophils % (auto) 0.2 % (0.0-2.0); Eosinophils # (auto) 0 10 ^3/uL (0-0.8); Eosinophils % (auto) 0.5 % (0.0-7.0); Hematocrit 34.2 % (36.0-46.0); Hemoglobin 11.4 g/dL (12.2-16.2); Lymphocytes # (auto) 1.7 10 ^3/uL (0.4-5.4); Lymphocytes % (auto) 17.2 % (10.0-50.0); Mean Corpuscular Hgb Conc. 33.3 g/dL (32.0-36.0); Mean Corpuscular Volume 90.2 fL (80.0-100.0); Monocytes # (auto) 0.7 10 ^3/uL (0-1.3); Monocytes % (auto) 6.7 % (0.0-12.0); Neutrophils # (auto) 7.5 10 ^3/uL (1.6-8.6); Neutrophils % (auto) 75.4 % (37.0-80.0); Platelet Count (auto) 259 10^3/uL (140-450); Red Cell Distribution Width 13.5 % (11.8-14.3)
[2023-12-20] MEDS: cefTRIAXone 1GM/50ML D5W 50 ML IV SCH (12:35)
--- NOTE | 2023-12-20 12:53 | DVH ---
RENAL ULTRASOUND CLINICAL HISTORY: ckd TECHNIQUE: Multiple ultrasound images of the kidneys and bladder were obtained. COMPARISON: CT abdomen 12/20/2023 FINDINGS: The right kidney measures 12.6 cm in length. The left kidney measures 14.8 cm. There is a 4.0 cm righ t upper pole cyst. There is a 7.4 x 4.8 cm nodular isoechoic structure in the upper pole of the right kidney. There is no significant hydronephrosis. There is no evidence of nephrolithiasis. Bladder prevoid volume measures 173 cc. Bladder grossly appears unremarkable. IMPRESSION: 1. Nonspecific 7.4 x 4.8 cm nodular isoechoic structure in the upper pole of the left kidney. This li octavia represents a renal mass. Consider further evaluation with follow-up CT abdomen and pelvis with radha downing. HS:Y
[2023-12-20] MEDS ORDERED: CHOL20002 PO (13:14)
[2023-12-20] MEDS ORDERED: METF-1145 PO (13:14)
[2023-12-20] MEDS ORDERED: LOSA-534 PO (13:14)
[2023-12-20] MEDS ORDERED: PRAV20TA3 PO (13:17)
[2023-12-20] MEDS ORDERED: ASPI-543 PO (13:18)
[2023-12-20] MEDS: HYDROcodone-ACET 5/325MG TAB PO SCH (13:36)
[2023-12-20] MEDS: metroNIDAZOLE 500MG/100ML 100 ML IV SCH (14:00)
--- NOTE | 2023-12-20 15:13 | DVHPNRES ---
Progress Note Date Seen: Dec 20, 2023 Resident Creating Document: CARLOS HARRIS RESIDENT Has the PT tested + for MRSA If YES, has PT been informed?: No Medical Necessity Reason Pt with a Central, PICC or Fol: No Subjective Review of Systems This is a 63-year-old female with past medical history of hypertension, kidney stones, prediabetes who presented to the ED with chief complaint of severe left lower quadrant pain that started approximately 8 hours before to admission. The patient described the pain as crampy in nature and rates the pain as a 10/10 on the pain scale located in the left lower quadrant with no specific pattern of radiation. The patient states that nothing makes the pain better or worse at this time. The patient also reports associated vomiting concomitant with the left lower quadrant pain. The patient also reported that she had a similar episode of pain on Saturday12/16/2023 that prompted her to visit [facility] [place] where apparently she was treated with pain medications and a CT of the abdomen which per patient was unremarkable. The patient was discharged but pain restarted once again. The patient also reports a previous history of kidney stones seven months ago with similar type of pain that took over a month to pass the stone. Initial labs showed leukocytosis at 14.4 and SHARRI with a creatinine of 1.13 and BUN of 18. Initial troponins were significantly elevated at 1250 but last troponins are trending down at 600. According to the patient she does not have any history of heart failure but most recent echocardiogram showed an LVEF of 45% with normal cardiac valves and no pericardial effusion. Cardiology was consulted and patient was admitted for further assessment and management. Patient seen and examined at bedside. Patient is reporting moderate to severe pain located in the left lower quadrant of the abdomen localized with no specific pattern of radiation. The patient is currently rating the pain as 7/10 on the pain scale. Patient was started on IV ceftriaxone and metronidazole for possible diverticulitis. CT scan of the abdomen showed left kidney superior pole mass measuring 6.7 cm in maximum diameter with lobulated contours atrial calcifications concerning for malignancy. There was also right kidney 3 cm hypodense lesion. Based on CT scan findings we decided to order an MRI of the abdomen with contrast with renal protocol. We will keep patient on these IV antibiotics to cover from Gram-negative and anaerobes. ROS Constitutional: Denies weight loss, fever and chills. HEENT: Denies changes in vision and hearing. Respiratory: Denies shortness of breath and cough Cardiovascular: Denies chest discomfort or palpitations GI: Reports moderate to severe left lower quadrant pain. nausea, vomiting and diarrhea. : Denies dysuria and urinary frequency. Musculoskeletal: Denies myalgias and joint pain Skin: Denies rash and pruritus. Neurological: Denies dizziness, headache, vision or hearing problems Objective vital signs Vital Sign Date Time Temp Pulse Resp B/P (MAP) Pulse Ox O2 Delivery O2 Flow Rate FiO2 12/20/23 13:00 98.3 102 20 137/59 (85) 100 98.3 12/20/23 05:58 Room Air* 0 21 medications Current Medications Medications Dose Ordered Sig/Jessica Route Start Time Stop Time Status Last Admin Dose Admin Sodium Chloride 10 ml Q8HR IV 12/20/23 06:00 12/20/23 06:00 10 ML Acetaminophen 325 mg Q4HP PRN PO 12/20/23 01:15 Acetaminophen/ Hydrocodone Bitart 1 tab Q4HP PRN PO 12/20/23 01:15 UNV Ondansetron HCl 4 mg Q4HP PRN IV 12/20/23 01:15 UNV Nitroglycerin 0.4 mg Q5MINP PRN SL 12/20/23 01:15 UNV Morphine Sulfate 2 mg Q30M PRN IV 12/20/23 01:15 UNV Diagnostic Test (Pha) 1 strip ACHS 12/20/23 07:00 12/20/23 11:42 1 STRIP Insulin Human Regular ACHS SC 12/20/23 07:00 12/20/23 07:14 2 UNITS Dextrose 50 ml UD PRN IV 12/20/23 01:00 Ondansetron HCl 4 mg Q4HP PRN IV 12/20/23 01:00 Nitroglycerin 0.4 mg Q5MINP PRN SL 12/20/23 01:00 Morphine Sulfate 2 mg Q30M PRN IV 12/20/23 01:00 12/20/23 10:33 2 MG Morphine Sulfate 2 mg Q4HPRN PRN IV 12/20/23 01:30 12/20/23 05:24 2 MG Ceftriaxone Sodium 50 ml @ 100 mls/hr DAILY@09 IV 12/20/23 10:45 12/20/23 12:35 100 MLS/HR Acetaminophen/ Hydrocodone Bitart 1 tab Q4HP PO 12/20/23 11:15 12/20/23 13:36 1 TAB Furosemide 20 mg BIDD IV 12/20/23 18:00 Metronidazole 100 ml @ 100 mls/hr Q8HR IV 12/20/23 14:00 Examination Physical Examination General: Patient alert and oriented in person, place and time. Patient following commands. HEENT: Normocephalic, atraumatic, moist mucous membranes Respiratory/pulmonary: Clear lungs bilaterally with very mild crackles on lung bases. no wheezes. Cardiovascular: Normal regular heart sounds S1 and S2 with no associated murmurs Abdomen: Prominent Abdomen nondistended, there is moderate to severe pain in the left lower quadrant. no palpable masses. Extremities: There is no peripheral edema present at the lower extremities. Peripheral Pulses: 3+ Radial (R). 3+ Radial (L). 3+ Dorsalis pedis (R). 3+ Dorsalis pedis(L) Skin: No rashes or pruritus, there is no sacral edema present at this time. Neurological: Intact cranial nerves with no focal neurologic deficits laboratory and microbiology Laboratory Tests 12/20/23 10:55 Test 12/20/23 10:55 Range/Units Serum Glucose 125 H 74-106 mg/dL Problem List/Assessment/Plan Problem List/Assessment/Plan Assessment/Plan Severe left lower quadrant pain likely due to left renal mass, R/O diverticulitis -patient initially was complaining of left lower quadrant pain rated as 10/10 on the pain scale associated with vomiting and leukocytosis at 14.4 -CT abdomen pelvis revealed Left kidney superior pole mass measuring 6.7 cm in maximum diameter with lobulated contours atrial calcifications. -Ordered MRI of the abd with contrast for better view of renal mass -NPO, will consider clear liquid diet if patient tolerates -Start IV ceftiaxone -Start IV metronidazole -Continue IV normal saline at 75 mL hour -Continue IV morphine 2 mg q.4 p.r.n. -IV ondansetron 4 mg q.4 p.r.n. -Consulted nephrology Acute systolic heart failure (HFrEF 45%) -initial BNP was 371.64 -chest x-ray was showing mild pulmonary vascular congestion -echocardiogram is showing an LVEF of 45% with normal cardiac valves and no pericardial effusion. -Start metoprolol tartrate 12.5mg BID -Continue furosemide 20mg BID -Strict ins and outs -Monitor BP closely NSTEMI likely type 2 secondary to above, R/O ischemia -Troponin initially positive at 1250>1186. Now trending down 600 -EKG revealed sinus rhythm with nonspecific ST-T changes. -echocardiogram is showing an LVEF of 45% with normal cardiac valves and no pericardial effusion. - Cardiology on board SHARRI likely due to hemodynamically mediated /VMN -last creatinine was 1.13 and BUN 18 -IV normal saline at 75 per hour -Monitor BMP Prediabetes -last hemoglobin A1c was 5.7% which is normal range -no need for medications at this time. -counseled patient regarding healthy low carb diet, lifestyle modification and physical exercise. Goals of care discussed with the patient at bedside for >23min, FULL CODE Plan discussed with Dr. Turner Plan discussed with: Patient My Orders My Orders Orders - CARLOS AHRRIS Procedure Category Date Status Time Ceftriaxone 1gm/50ml PHA 12/20/23 In Process D5w (Rocephin) 10:45 *Dr. [facility] CONS 12/20/23 Transmitted -[place] 10:32 Metronidazole PHA 12/20/23 In Process 500mg/100ml (Flagyl 14:00 Mri Abdomen [facility] And [facility] MRI 12/20/23 Logged 12:33 Date of Service: Dec 20, 2023 Billing Provider: CONSTANTINE TURNER MD Common Visit Codes: [id number] INP/OBS CARE(HIGH) Secondary Visit Codes: 53606-[id number] CARE PLAN 30 MINUTES CARLOS HARRIS Dec 20, 2023 15:13 CONSTANTINE TURNER MD Dec 20, 2023 20:31
--- NOTE | 2023-12-20 15:16 | DVH ---
CT CT AB PELVIS W WO CON-IV ONLY History: RENAL MASS Comparison Study: None available at time of dictation. Technique: Multidetector spiral CT of the abdomen and pelvis was performed from lung bases to pubic s ymphysis. Initial imaging was done without IV contrast, followed by post contrast images of the abdo men and pelvis. Intravenous contrast was administered during this examination. Multiphase imaging wa s obtained. Axial, coronal and sagittal multiplanar reformats were performed by the technologist on a separate workstation. Radiation Dose : CT Dose: CTDI volume is 38.94 mGy. Dose-length product is 4697.62 mGy*cm Findings: Lung Bases: Atelactasis and scarring in the lung bases. Liver: There is diffuse hepatic steatosis Gallbladder and biliary Tree: Unremarkable Spleen: Unremarkable Pancreas: The pancreas is normal in appearance without focal lesions or abnormal enhancement. Adrenal Glands: Unremarkable Kidneys: There is a heterogeneously enhancing mass in the upper pole of the left kidney measuring up to at least 81 mm. There are other smaller masses in the left kidney. There is mild left hydronephros is with some increased density in the proximal left ureter. There is a simple appearing right renal c yst. Bladder: Grossly unremarkable for degree of distention. Bowel: The stomach is grossly normal in appearance. Small bowel and colon are normal in caliber and d istribution. Normal appendix is visualized in the right lower quadrant without findings of appendici tis. Sigmoid diverticulosis noted. Ascites: Absent Lymphadenopathy: No mesenteric, retroperitoneal or periportal lymphadenopathy. Abdominal wall and Mesentery: Unremarkable. Vasculature: The visualized abdominal aorta is normal in size and caliber. Abdominal and pelvic vess els demonstrate normal enhancement. Pelvic Organs: Suspect a fibroid in the uterus. Musculoskeletal: No aggressive focal bony lesions, acute fractures or dislocation. IMPRESSION: 1. Heterogeneously enhancing mass replacing much of the upper pole of the left kidney with other smal ler masses in the upper pole of the left kidney. Dilation of the proximal ureter with some high densi ty. Findings are likely malignant with possible involvement of the ureter. Urology evaluation is shen mmended. CT guided biopsy could be performed if clinically indicated. 2. Hepatic steatosis. Right renal cyst. Diverticulosis. Suspected uterine fibroid. This could be furt her evaluated with ultrasound Radiation optimization: All CT scans at this facility use at least one of these dose optimization vineet hniques: Automated exposure control mA and/or kV adjustment per patient size (includes targeted exams where dose is matched to clinical indication) or iterative reconstruction. HS:Y
[2023-12-20] MEDS: LACTULOSE 20Gm/30ML SOLN PO ONE (15:45)
--- NOTE | 2023-12-20 16:27 | DVHINCON2 ---
Date of service: Dec 20, 2023 Referring Physician Paul Jean Baptiste Reason for Consultation Renal Mass, SHARRI History of Present Illness 63 y/o female presented to ER with complaints of severe L lower quadrant pain, and emesis. Pt reports hx of HTN, nephrolithiasis, and prediabetes. Denies hx of CKD. Consulted for renal mass and SHARRI. Pt presented with BUN 15, creat 1.13, and eGFR of 55. Reports hx of HTN x 10 years and has been well controlled. Reports passing of kidney stone about 8 months ago. Reports adequate fluid intake. Denies cardiopulmonary issues. Denies complaints including gross hematuria. Denies NSAID use. Denies family hx of CKD. Past Medical History HTN, nephrolithiasis, and prediabetes. Past Surgical History hernia repair Allergies: Coded Allergies: Penicillins (Verified Allergy, Unknown, 01/03/15) Home Meds Reported Medications Aspirin (Aspir-Low) 81 Mg Tab, 81 MG PO DAILY for 30 Days, MG 12/20/23 Pravastatin Sodium (PRAVACHOL TABLET) 20 Mg Tb, 1 TAB PO DAILY 12/20/23 Cholecalciferol (VITAMIN D3) 2,000 Unit Tab, 1 CAP PO DAILY 12/20/23 Losartan Potassium (Losartan Potassium) 50 Mg Tab, 1 TAB PO DAILY 12/20/23 Metformin Hydrochloride (Metformin Hcl Er) 500 Mg Tab, 1 TAB PO BID 12/20/23 Current Medications Current Medications Medications (Trade) Dose Ordered Sig/Jessica Route PRN Reason Start Time Stop Time Status Last Admin Sodium Chloride (Saline Lock Ns) 10 ml Q8HR IV 12/20/23 06:00 12/20/23 06:00 Sodium Chloride 1,000 ml @ 75 mls/hr [id number] IV 12/20/23 01:15 12/20/23 11:20 DC 12/20/23 01:15 Acetaminophen (Tylenol Tablet) 325 mg Q4HP PRN PO MILD PAIN (1-3 PAIN SCALE) 12/20/23 01:15 Acetaminophen/ Hydrocodone Bitart (Neal 5/325MG Tab) 1 tab Q4HP PRN PO MODERATE PAIN (4-6 PAIN SCALE) 12/20/23 01:15 UNV Ondansetron HCl (Zofran) 4 mg Q4HP PRN IV NAUSEA / VOMITING 12/20/23 01:15 UNV Nitroglycerin (Ntrostat Sublingual) 0.4 mg Q5MINP PRN SL FOR CHEST PAIN 12/20/23 01:15 UNV Morphine Sulfate 2 mg Q30M PRN IV FOR CHEST PAIN 12/20/23 01:15 UNV Levofloxacin/ Dextrose 100 ml @ 100 mls/hr DAILY IV 12/21/23 10:00 12/20/23 10:32 DC Diagnostic Test (Pha) (Accu-Chek Comfort Curve T) 1 strip ACHS 12/20/23 07:00 12/20/23 11:42 Insulin Human Regular (InsuLIN R) ACHS SC 12/20/23 07:00 12/20/23 07:14 Dextrose 50 ml UD PRN IV Blood Sugar LESS THAN 60 12/20/23 01:00 Acetaminophen/ Hydrocodone Bitart (Neal 5/325MG Tab) 1 tab Q4HP PRN PO MODERATE PAIN (4-6 PAIN SCALE) 12/20/23 01:00 12/20/23 11:07 DC Ondansetron HCl (Zofran) 4 mg Q4HP PRN IV NAUSEA / VOMITING 12/20/23 01:00 Nitroglycerin (Ntrostat Sublingual) 0.4 mg Q5MINP PRN SL FOR CHEST PAIN 12/20/23 01:00 Morphine Sulfate 2 mg Q30M PRN IV FOR CHEST PAIN 12/20/23 01:00 12/20/23 10:33 Morphine Sulfate 2 mg Q4HPRN PRN IV SEVERE PAIN (7-10 PAIN SCALE) 12/20/23 01:30 12/20/23 05:24 Ceftriaxone Sodium 50 ml @ 100 mls/hr DAILY@09 IV 12/20/23 10:45 12/20/23 12:35 Acetaminophen/ Hydrocodone Bitart (Neal 5/325MG Tab) 1 tab Q4HP PO 12/20/23 11:15 12/20/23 13:36 Furosemide (Lasix Injection) 20 mg BIDD IV 12/20/23 18:00 Metronidazole 100 ml @ 100 mls/hr Q8HR IV 12/20/23 14:00 Metoprolol Tartrate (Lopressor Tablet) 12.5 mg BID PO 12/20/23 22:00 UNV Review of Systems 10 systems reviewed and negative except as per HPI H&P Exam Vital Signs/I&O Vital Sign Date Time Temp Pulse Resp B/P (MAP) Pulse Ox O2 Delivery O2 Flow Rate FiO2 12/20/23 13:00 98.3 102 20 137/59 (85) 100 98.3 12/20/23 05:58 Room Air* 0 21 Physical Exam General: Appears stated age. Obese. In no acute distress. HEENT: pupils equal and reactive to light and accommodation. Pulm: CTA bilaterally CVS: RRR. Normal S1 and S2 Abd: Normoactive bowel sounds, soft, nontender, and not distended Ext: No edema noted Neuro: Alert and oriented x 4. No focal deficits noted. Labs/Diagnostic Data Labs/Diagnostic Data Laboratory Tests Test 12/20/23 15:10 12/20/23 11:40 12/20/23 10:55 12/20/23 07:08 Range/Units POC Glucose 129 H 134 H 70-106 mg/dl White Blood Count 10.0 # 4.4-10.8 10^3/uL Red Blood Count 3.80 L 4.0-5.20 10^6/uL Hemoglobin 11.4 L 12.2-16.2 g/dL Hematocrit 34.2 L 36.0-46.0 % Mean Corpuscular Volume 90.2 80.0-100.0 fL Mean Corpuscular Hemoglobin 30.0 28.0-32.0 pg Mean Corpuscular Hemoglobin Concent 33.3 32.0-36.0 g/dL Red Cell Distribution Width 13.5 11.8-14.3 % Platelet Count 259 140-450 10^3/uL Mean Platelet Volume 7.7 6.9-10.8 fL Neutrophils (%) (Auto) 75.4 37.0-80.0 % Lymphocytes (%) (Auto) 17.2 10.0-50.0 % Monocytes (%) (Auto) 6.7 0.0-12.0 % Eosinophils (%) (Auto) 0.5 0.0-7.0 % Basophils (%) (Auto) 0.2 0.0-2.0 % Neutrophils # (Auto) 7.5 1.6-8.6 10 ^3/uL Lymphocytes # (Auto) 1.7 0.4-5.4 10 ^3/uL Monocytes # (Auto) 0.7 0-1.3 10 ^3/uL Eosinophils # (Auto) 0 0-0.8 10 ^3/uL Basophils # (Auto) 0 0-0.2 10 ^3/uL Nucleated Red Blood Cells 0.0 % Prothrombin Time 11.4 9.3-11.8 sec Prothrombin Time INR 1.08 0.9-1.15 Activated Partial Thromboplast Time 27.2 24.5-34.5 SEC Sodium Level 141 136-145 mmol/L Potassium Level 4.2 3.5-5.1 mmol/L Chloride Level 108 H 98-107 mmol/L Carbon Dioxide Level 25 20-31 mmol/L Anion Gap 8 5-15 Blood Urea Nitrogen 15 9-23 mg/dL Creatinine 1.13 H 0.550-1.02 mg/dL Glomerular Filtration Rate Calc 55 >90 mL/min BUN/Creatinine Ratio 13.3 10.0-20.0 Serum Glucose 125 H 74-106 mg/dL Hemoglobin A1c 5.7 <5.7 % A1C Calcium Level 9.6 8.7-10.4 mg/dL Magnesium Level 1.9 1.6-2.6 mg/dL Troponin I High Sensitivity 687 *H </=34 ng/L B-Type Natriuretic Peptide 371.64 0-100 pg/mL Vitamin B12 Level 345 211-911 pg/mL Vitamin D 25-Hydroxy 32.7 30.0-100 ng/mL Test 12/20/23 02:00 12/19/23 23:10 Range/Units Lactic Acid Level 1.7 0.4-2.0 mmol/L Troponin I High Sensitivity 1186 *H 1250 *H </=34 ng/L Thyroid Stimulating Hormone (TSH) 2.16 0.55-4.78 uIU/mL White Blood Count 14.4 H 4.4-10.8 10^3/uL Red Blood Count 4.07 4.0-5.20 10^6/uL Hemoglobin 11.9 L 12.2-16.2 g/dL Hematocrit 36.5 36.0-46.0 % Mean Corpuscular Volume 89.8 80.0-100.0 fL Mean Corpuscular Hemoglobin 29.2 28.0-32.0 pg Mean Corpuscular Hemoglobin Concent 32.6 32.0-36.0 g/dL Red Cell Distribution Width 13.4 11.8-14.3 % Platelet Count 320 140-450 10^3/uL Mean Platelet Volume 7.4 6.9-10.8 fL Neutrophils (%) (Auto) 76.6 37.0-80.0 % Lymphocytes (%) (Auto) 16.0 10.0-50.0 % Monocytes (%) (Auto) 6.4 0.0-12.0 % Eosinophils (%) (Auto) 0.4 0.0-7.0 % Basophils (%) (Auto) 0.6 0.0-2.0 % Neutrophils # (Auto) 11.1 H 1.6-8.6 10 ^3/uL Lymphocytes # (Auto) 2.3 0.4-5.4 10 ^3/uL Monocytes # (Auto) 0.9 0-1.3 10 ^3/uL Eosinophils # (Auto) 0.1 0-0.8 10 ^3/uL Basophils # (Auto) 0.1 0-0.2 10 ^3/uL Nucleated Red Blood Cells 0.0 % Sodium Level 140 136-145 mmol/L Potassium Level 4.3 3.5-5.1 mmol/L Chloride Level 107 98-107 mmol/L Carbon Dioxide Level 22 20-31 mmol/L Anion Gap 11 5-15 Blood Urea Nitrogen 18 9-23 mg/dL Creatinine 1.13 H 0.550-1.02 mg/dL Glomerular Filtration Rate Calc 55 >90 mL/min BUN/Creatinine Ratio 15.9 10.0-20.0 Serum Glucose 143 H 74-106 mg/dL Calcium Level 9.9 8.7-10.4 mg/dL Total Bilirubin 1.0 0.2-1.0 mg/dL Aspartate Amino Transferase (AST) 27 13-40 U/L Alanine Aminotransferase (ALT) 16 7-40 U/L Alkaline Phosphatase 104 46-116 U/L Total Protein 7.1 5.7-8.2 g/dL Albumin 4.8 3.2-4.8 g/dL Plan/Recommendation 1. SHARRI hemodynamically mediated- ongoing 2. Possible CKD stage 2- baseline creat unknown 3. L renal mass- pending MRI 4. Prediabetes 5.CHF 6.NSTEMI REC: Serial chemistry panels CBC, phosp, TSH, uric acid, U/A with urine creat, urine protein, and urine Na Hold losartan during time course of SHARRI Avoidance of NSAIDs/IV contrast if able Use of loop diuretics as needed Agree with Urology consult-pending Will continue to follow Case discussed with Dr. Jayjay Figueroa Plan discussed with: Patient, Other (Dr Jayjay Figueroa) CYDNEY MARRUFO [employer]AT [employer]ER Dec 20, 2023 16:27
[2023-12-20] MEDS: FUROSEMIDE 20 MG/2 ML VIAL IV SCH (18:00)
[2023-12-20] MEDS: METOPROLOL TARTRATE 25 MG TAB PO SCH (22:59)
[2023-12-21] VITALS (7 sets, daily range): BP systolic 134–153; BP diastolic 55–79; PULSE 61–97; RESP 15–20; TEMP 97.8–98.5; O2SAT 92–98
[2023-12-21 06:35] LABS: Basophils # (auto) 0 10 ^3/uL (0-0.2); Basophils % (auto) 0.3 % (0.0-2.0); Eosinophils # (auto) 0 10 ^3/uL (0-0.8); Eosinophils % (auto) 0.1 % (0.0-7.0); Lymphocytes # (auto) 1.5 10 ^3/uL (0.4-5.4); Lymphocytes % (auto) 11.1 % (10.0-50.0); Mean Corpuscular Hgb Conc. 33.4 g/dL (32.0-36.0); Mean Corpuscular Volume 89.9 fL (80.0-100.0); Monocytes % (auto) 7.4 % (0.0-12.0); Neutrophils # (auto) 10.9 10 ^3/uL (1.6-8.6); Neutrophils % (auto) 81.1 % (37.0-80.0); Platelet Count (auto) 243 10^3/uL (140-450); Red Blood Cells 3.67 10^6/uL (4.0-5.20); Red Cell Distribution Width 13.6 % (11.8-14.3); White Blood Cell 13.5 10^3/uL (4.4-10.8)
[2023-12-21 06:59] LABS: Alanine Aminotransferase 12 U/L (7-40); Albumin 4.5 g/dL (3.2-4.8); Alkaline Phosphatase 94 U/L (46-116); Anion Gap 7 (5-15); Aspartate Aminotransferase 17 U/L (13-40); BUN/Creatinine Ratio 12.6 (10.0-20.0); Bilirubin, Total 1.1 mg/dL (0.2-1.0); Blood Urea Nitrogen 14 mg/dL (9-23); Calcium 9.6 mg/dL (8.7-10.4); Carbon Dioxide 27 mmol/L (20-31); Chloride 107 mmol/L (98-107); Glucose 137 mg/dL (74-106); Magnesium 1.9 mg/dL (1.6-2.6); Phosphorus 4.1 mg/dL (2.4-5.1); Potassium 4.5 mmol/L (3.5-5.1); Sodium 141 mmol/L (136-145); Total Protein 6.6 g/dL (5.7-8.2); Uric Acid 10.7 mg/dL (3.1-7.8)
[2023-12-21] MEDS: LACTULOSE 20Gm/30ML SOLN PO SCH (08:46)
[2023-12-21] MEDS ORDERED: levoFLOXacin 500MG 100 ML IV SCH (10:00)
[2023-12-21] MEDS: GADOTERATE MEG 10 MMOL/20ml INJ (0.5MMOL/ml) IV ONE (12:54)
--- NOTE | 2023-12-21 13:30 | DVH ---
Procedure: MRI MRI ABDOMEN W AND WO 12/21/2023 11:32 AM Indication:RENAL MASS. Comparison Study: CT scan dated 12/20/2023 Technique: Multi planar, multi sequence MRI of the abdomen was performed prior and after uneventful a dministration of IV contrast. FINDINGS: Lower Chest: Unremarkable. Hepatobiliary: Moderate hepatomegaly. Few subcentimeter cysts are seen. No suspicious lesion. No cho lelithiasis. Subcentimeter gallbladder find mural diverticula are seen compatible with gallbladder ad enomyomatosis. The common bile duct is normal in caliber. No intrahepatic ductal dilatation. No evid ence of choledocholithiasis. Gallbladder is moderately distended. Spleen: Unremarkable. Pancreas: A 1.2 x 0.5 cm pancreatic body cyst. There is moderate pancreatic fatty infiltration. No p ancreatic ductal dilatation. Adrenal Glands: Unremarkable. tract: A large heterogeneous mass is seen occupying the posterolateral cortex of the upper and mid dle poles of the left kidney measuring approximately 6.2 cm in craniocaudal, 6.2 cm in transverse and 5 cm in AP with extension to the pelvis. There is mild left hydronephrosis and hydroureter with urot helial thickening and enhancement. Left perinephric fat stranding noted. There is asymmetric dilatati on of the left renal vein but no filling defect or occlusion is seen. The right kidney is normal in s ize and contains several simple appearing, Bosniak category 1 cysts which measure up to 5.5 x 3 cm. GI tract: The stomach is grossly normal in appearance. No evidence of small bowel obstruction. Diffu se colonic diverticulosis. The appendix is not visualized. No inflammatory change is noted in the r ight lower quadrant. Lymphatics: No mesenteric, retroperitoneal or periportal lymphadenopathy. Vasculature: The abdominal aorta is normal in in caliber. Bones/soft tissues: No acute abnormality. Other: None. IMPRESSION: 1. Large, 6.2 cm left renal mass involving the renal pelvis most compatible with renal cell carcinoma . The left renal vein is asymmetrically distended but there is no evidence of bland or tumor thrombus in this exam. Recommend urology consultation for possible excisional biopsy. 2. Moderate left hydronephrosis and proximal hydroureter with evidence of urothelial thickening. This is probably reactive or infectious in etiology. Concomitant transitional cell carcinoma is unlikely . 3. Diffuse colonic diverticulosis without diverticulitis. 4. Gallbladder adenomyomatosis. 5. Moderate hepatic steatosis. 6. Small, 1.2 cm pancreatic body cyst that could be a benign postinflammatory/ infectious pseudocyst or cystic neoplasm such as intraductal mucinous papillary neoplasm. Recommend follow-up by MRI or CT scan in 6-12 months.
--- NOTE | 2023-12-21 13:52 | DVHPN2 ---
Progress Note Date Seen: Dec 21, 2023 Has the PT tested + for MRSA If YES, has PT been informed?: No Medical Necessity Reason Pt with a Central, PICC or Fol: No Subjective Review of Systems Pt resting in bed, no acute distress noted Patient reports: No new complaints, Feels better Objective vital signs Vital Sign Date Time Temp Pulse Resp B/P (MAP) Pulse Ox O2 Delivery O2 Flow Rate FiO2 12/21/23 12:54 68 141/65 12/21/23 09:00 98.4 17 95 98.4 12/21/23 08:00 Room Air* 0 21 Total Intake and Output 12/20/23 12/20/23 12/21/23 15:00 23:00 07:00 Intake Total 0 ml 0 ml Output Total 400 ml 300 ml Balance -400 ml -300 ml medications Current Medications Medications Dose Ordered Sig/Jessica Route Start Time Stop Time Status Last Admin Dose Admin Sodium Chloride 10 ml Q8HR IV 12/20/23 06:00 12/21/23 12:54 10 ML Acetaminophen 325 mg Q4HP PRN PO 12/20/23 01:15 Acetaminophen/ Hydrocodone Bitart 1 tab Q4HP PRN PO 12/20/23 01:15 UNV Ondansetron HCl 4 mg Q4HP PRN IV 12/20/23 01:15 UNV Nitroglycerin 0.4 mg Q5MINP PRN SL 12/20/23 01:15 UNV Morphine Sulfate 2 mg Q30M PRN IV 12/20/23 01:15 UNV Diagnostic Test (Pha) 1 strip ACHS 12/20/23 07:00 12/21/23 11:30 1 STRIP Insulin Human Regular ACHS SC 12/20/23 07:00 12/21/23 11:30 2 UNITS Dextrose 50 ml UD PRN IV 12/20/23 01:00 Ondansetron HCl 4 mg Q4HP PRN IV 12/20/23 01:00 Nitroglycerin 0.4 mg Q5MINP PRN SL 12/20/23 01:00 Morphine Sulfate 2 mg Q30M PRN IV 12/20/23 01:00 12/20/23 10:33 2 MG Ceftriaxone Sodium 50 ml @ 100 mls/hr DAILY@09 IV 12/20/23 10:45 12/21/23 08:48 100 MLS/HR Acetaminophen/ Hydrocodone Bitart 1 tab Q4HP PO 12/20/23 11:15 12/21/23 13:08 1 TAB Furosemide 20 mg BIDD IV 12/20/23 18:00 12/21/23 06:18 20 MG Metronidazole 100 ml @ 100 mls/hr Q8HR IV 12/20/23 14:00 12/21/23 13:09 100 MLS/HR Metoprolol Tartrate 12.5 mg BID PO 12/20/23 22:00 12/21/23 08:48 12.5 MG Morphine Sulfate 4 mg Q4HPRN PRN IV 12/20/23 15:45 12/21/23 04:22 4 MG Lactulose 30 ml DAILY PO 12/21/23 10:00 12/21/23 08:46 30 ML Examination General: Appears stated age. Obese. In no acute distress. HEENT: pupils equal and reactive to light and accommodation. Pulm: CTA bilaterally CVS: RRR. Normal S1 and S2 Abd: Normoactive bowel sounds, soft, nontender, and not distended Ext: No edema noted Neuro: Alert and oriented x 4. No focal deficits noted. laboratory and microbiology Laboratory Tests 12/21/23 06:17 Test 12/21/23 06:17 Range/Units Serum Glucose 137 H 74-106 mg/dL Labs and/or images reviewed: Labs reviewed by me Problem List/Assessment/Plan Problem List/Assessment/Plan 1. SHARRI hemodynamically mediated- ongoing stable eGFR 56 2. Possible CKD stage 2- baseline creat unknown 3. L renal mass- pending MRI 4. Prediabetes 5.CHF 6.NSTEMI REC: Serial chemistry panels Hold losartan during time course of SHARRI Avoidance of NSAIDs/IV contrast if able Use of loop diuretics as needed Agree with Urology consult-pending Will continue to follow Plan discussed with: Patient CYDNEY MARRUFO [employer] Dec 21, 2023 13:52
--- NOTE | 2023-12-21 16:02 | DVHPNRES ---
Progress Note Date Seen: Dec 21, 2023 Resident Creating Document: CHERYLE ALAN RESIDENT Has the PT tested + for MRSA If YES, has PT been informed?: No Medical Necessity Reason Pt with a Central, PICC or Fol: No Subjective Review of Systems This is a 63-year-old female with past medical history of hypertension, kidney stones, prediabetes who presented to the ED with chief complaint of severe left lower quadrant pain that started approximately 8 hours before to admission. The patient described the pain as crampy in nature and rates the pain as a 10/10 on the pain scale located in the left lower quadrant with no specific pattern of radiation. The patient states that nothing makes the pain better or worse at this time. The patient also reports associated vomiting concomitant with the left lower quadrant pain. The patient also reported that she had a similar episode of pain on Saturday12/16/2023 that prompted her to visit [facility] where apparently she was treated with pain medications and a CT of the abdomen which per patient was unremarkable. The patient was discharged but pain restarted once again. The patient also reports a previous history of kidney stones seven months ago with similar type of pain that took over a month to pass the stone. Initial labs showed leukocytosis at 14.4 and SHARRI with a creatinine of 1.13 and BUN of 18. Initial troponins were significantly elevated at 1250 but last troponins are trending down at 600. According to the patient she does not have any history of heart failure but most recent echocardiogram showed an LVEF of 45% with normal cardiac valves and no pericardial effusion. Cardiology was consulted and patient was admitted for further assessment and management. On 12/21/2023 MRI of the abdomen revealed-Large, 6.2 cm left renal mass involving the renal pelvis most compatible with renal cell carcinoma. The left renal vein is asymmetrically distended but there is no evidence of bland or tumor thrombus in this exam. Recommend urology consultation for possible excisional biopsy. Moderate left hydronephrosis and proximal hydroureter with evidence of urothelial thickening. This is probably reactive or infectious in etiology. Concomitant transitional cell carcinoma is unlikely. Diffuse colonic diverticulosis without diverticulitis. Gallbladder adenomyomatosis. Moderate hepatic steatosis. Small, 1.2 cm pancreatic body cyst that could be a benign postinflammatory/ infectious pseudocyst or cystic neoplasm such as intraductal mucinous papillary neoplasm. Constitutional: Denies weight loss, fever and chills. HEENT: Denies changes in vision and hearing. Respiratory: Denies shortness of breath and cough Cardiovascular: Denies chest discomfort or palpitations GI: Denies nausea, vomiting and diarrhea. : Denies dysuria and urinary frequency. Musculoskeletal: Denies myalgias and joint pain Skin: Denies rash and pruritus. Neurological: Denies dizziness, headache, vision or hearing problems Patient is seen today for clinical evaluation. Labs and chart reviewed. Patient reported abdominal pain is mild better today due to pain medications. On 12/21/2023 MRI of the abdomen revealed-Large, 6.2 cm left renal mass involving the renal pelvis most compatible with renal cell carcinoma. The left renal vein is asymmetrically distended but there is no evidence of bland or tumor thrombus in this exam. Recommend urology consultation for possible excisional biopsy. Moderate left hydronephrosis and proximal hydroureter with evidence of urothelial thickening. This is probably reactive or infectious in etiology. Concomitant transitional cell carcinoma is unlikely. Diffuse colonic diverticulosis without diverticulitis. Gallbladder adenomyomatosis. Moderate hepatic steatosis. Small, 1.2 cm pancreatic body cyst that could be a benign postinflammatory/ infectious pseudocyst or cystic neoplasm such as intraductal mucinous papillary neoplasm. Pending review by the urologist. Urology consult order in place. Ceftriaxone and metronidazole as MRI revealed diverticulosis without diverticulitis. Objective vital signs Vital Sign Date Time Temp Pulse Resp B/P (MAP) Pulse Ox O2 Delivery O2 Flow Rate FiO2 12/21/23 15:43 95 16 135/78 12/21/23 09:00 98.4 95 98.4 12/21/23 08:00 Room Air* 0 21 Total Intake and Output 12/20/23 12/20/23 12/21/23 15:00 23:00 07:00 Intake Total 0 ml 0 ml Output Total 400 ml 300 ml Balance -400 ml -300 ml medications Current Medications Medications Dose Ordered Sig/Jessica Route Start Time Stop Time Status Last Admin Dose Admin Sodium Chloride 10 ml Q8HR IV 12/20/23 06:00 12/21/23 12:54 10 ML Acetaminophen 325 mg Q4HP PRN PO 12/20/23 01:15 Acetaminophen/ Hydrocodone Bitart 1 tab Q4HP PRN PO 12/20/23 01:15 UNV Ondansetron HCl 4 mg Q4HP PRN IV 12/20/23 01:15 UNV Nitroglycerin 0.4 mg Q5MINP PRN SL 12/20/23 01:15 UNV Morphine Sulfate 2 mg Q30M PRN IV 12/20/23 01:15 UNV Diagnostic Test (Pha) 1 strip ACHS 12/20/23 07:00 12/21/23 11:30 1 STRIP Insulin Human Regular ACHS SC 12/20/23 07:00 12/21/23 11:30 2 UNITS Dextrose 50 ml UD PRN IV 12/20/23 01:00 Ondansetron HCl 4 mg Q4HP PRN IV 12/20/23 01:00 Nitroglycerin 0.4 mg Q5MINP PRN SL 12/20/23 01:00 Morphine Sulfate 2 mg Q30M PRN IV 12/20/23 01:00 12/20/23 10:33 2 MG Ceftriaxone Sodium 50 ml @ 100 mls/hr DAILY@09 IV 12/20/23 10:45 12/21/23 08:48 100 MLS/HR Acetaminophen/ Hydrocodone Bitart 1 tab Q4HP PO 12/20/23 11:15 12/21/23 13:08 1 TAB Furosemide 20 mg BIDD IV 12/20/23 18:00 12/21/23 06:18 20 MG Metronidazole 100 ml @ 100 mls/hr Q8HR IV 12/20/23 14:00 12/21/23 13:09 100 MLS/HR Metoprolol Tartrate 12.5 mg BID PO 12/20/23 22:00 12/21/23 08:48 12.5 MG Morphine Sulfate 4 mg Q4HPRN PRN IV 12/20/23 15:45 12/21/23 15:43 4 MG Lactulose 30 ml DAILY PO 12/21/23 10:00 12/21/23 08:46 30 ML Examination General: Patient alert and oriented in person, place and time. Patient following commands. HEENT: Normocephalic, atraumatic, moist mucous membranes Respiratory/pulmonary: Clear lungs bilaterally with very mild crackles on lung bases. no wheezes. Cardiovascular: Normal regular heart sounds S1 and S2 with no associated murmurs Abdomen: Prominent Abdomen nondistended, there is moderate to severe pain in the left lower quadrant. no palpable masses. Extremities: There is no peripheral edema present at the lower extremities. Peripheral Pulses: 3+ Radial (R). 3+ Radial (L). 3+ Dorsalis pedis (R). 3+ Dorsalis pedis(L) Skin: No rashes or pruritus, there is no sacral edema present at this time. Neurological: Intact cranial nerves with no focal neurologic deficits laboratory and microbiology Laboratory Tests 12/21/23 06:17 Test 12/21/23 06:17 Range/Units Serum Glucose 137 H 74-106 mg/dL Problem List/Assessment/Plan Problem List/Assessment/Plan Assessment/Plan Severe left lower quadrant pain likely due to left renal mass, R/O diverticulitis -patient initially was complaining of left lower quadrant pain rated as 10/10 on the pain scale associated with vomiting and leukocytosis at 14.4 -On 12/21/2023 MRI of the abdomen revealed-Large, 6.2 cm left renal mass involving the renal pelvis most compatible with renal cell carcinoma. The left renal vein is asymmetrically distended but there is no evidence of bland or tumor thrombus in this exam. Recommend urology consultation for possible excisional biopsy. Moderate left hydronephrosis and proximal hydroureter with evidence of urothelial thickening. This is probably reactive or infectious in etiology. Concomitant transitional cell carcinoma is unlikely. -CT abdomen pelvis revealed Left kidney superior pole mass measuring 6.7 cm in maximum diameter with lobulated contours atrial calcifications. -carbohydrate consistent and cardiac diet -on discontinued ceftriaxone and -Continue IV normal saline at 75 mL hour -Continue IV morphine 2 mg q.4 p.r.n. -IV ondansetron 4 mg q.4 p.r.n. -Consulted nephrology Acute systolic heart failure (HFrEF 45%) -initial BNP was 371.64 -chest x-ray was showing mild pulmonary vascular congestion -echocardiogram is showing an LVEF of 45% with normal cardiac valves and no pericardial effusion. -continue metoprolol tartrate 12.5mg BID -Continue furosemide 20mg BID -Strict ins and outs -Monitor BP closely NSTEMI likely type 2 secondary to above, R/O ischemia -Troponin initially positive at 1250>1186. Now trending down 600 -EKG revealed sinus rhythm with nonspecific ST-T changes. -echocardiogram is showing an LVEF of 45% with normal cardiac valves and no pericardial effusion. - Cardiology on board #SHARRI likely due to hemodynamically mediated /VMN -serum creatinine 1.13> 1.13> 1.11 -discontinue IV fluid -Monitor BMP #Diffuse colonic diverticulosis without diverticulitis. -conservative management #Gallbladder adenomyomatosis. -follow up outpatient # Moderate hepatic steatosis. -conservative management #Small, 1.2 cm pancreatic body cyst that could be a benign postinflammatory/ infectious pseudocyst or cystic neoplasm such as intraductal mucinous papillary neoplasm. Prediabetes -last hemoglobin A1c was 5.7% which is normal range -no need for medications at this time. -counseled patient regarding healthy low carb diet, lifestyle modification and physical exercise. Goals of care discussed with the patient at bedside for >23min, FULL CODE Plan discussed with Dr. Turner Plan discussed with: Patient Plan discussed with: Patient, Other (RN) My Orders My Orders Orders - CHERYLE ALAN Procedure Category Date Status Time Cardiac DIET 12/21/23 Transmitted Diet-2gna,Lofat,Lochol Dinner Consistent DIET 12/21/23 Transmitted Carb(Ccho)Diabetes Dinner Date of Service: Dec 21, 2023 Billing Provider: CONSTANTINE TURNER MD Common Visit Codes: [id number] INP/OBS CARE(HIGH) CHERYLE ALAN Dec 21, 2023 16:02 CONSTANTINE TURNER MD Dec 21, 2023 20:40
[2023-12-21] MEDS: ONDANSETRON HCL 4 MG/2 ML VIAL IV PRN (17:40)
[2023-12-21] MEDS: HYDROcodone-ACET 5/325MG TAB PO SCH (21:26)
[2023-12-21 22:10] LABS: Urine Bacteria None Seen /hpf (None Seen)
[2023-12-21 22:27] LABS: Protein, Urine 47.9 mg/dL (1-14); Urine Blood 3+ /uL (Negative); Urine Clarity Ex.Turbid (Clear); Urine Color Light-Orange (Yellow); Urine Mucus FEW (None Seen); Urine Protein, UAD 1+ (Negative); Urine Urobilinogen Normal (Negative); Urine WBC 274 /hpf (0 - 5); Urine WBC Clumps PRESENT /hpf (None Seen)
[2023-12-21 22:29] LABS: Amphetamine Screen, Urine Neg (NEGATIVE); Creatinine, Urine 93.8 mg/dL (30.0-125.0)
[2023-12-21 22:30] LABS: Barbiturate Scree,Urine Neg (NEGATIVE); Benzodiazephine Screen, Urine Neg (NEGATIVE); Cannabinoid Screen, Urine Neg (NEGATIVE); Cocaine Screen, Urine Neg (NEGATIVE); Opiate Scree,Urine Pos (NEGATIVE); Phencyclidine Screen, Urine Neg (NEGATIVE)
[2023-12-22] VITALS (8 sets, daily range): BP systolic 105–129; BP diastolic 36–64; PULSE 77–89; RESP 16–20; TEMP 97.1–98; O2SAT 94–98
[2023-12-22 05:46] LABS: Basophils # (auto) 0 10 ^3/uL (0-0.2); Basophils % (auto) 0.5 % (0.0-2.0); Eosinophils # (auto) 0 10 ^3/uL (0-0.8); Eosinophils % (auto) 0.4 % (0.0-7.0); Hematocrit 32.4 % (36.0-46.0); Hemoglobin 10.7 g/dL (12.2-16.2); Lymphocytes % (auto) 18.5 % (10.0-50.0); Mean Corpuscular Hgb Conc. 33.1 g/dL (32.0-36.0); Mean Corpuscular Volume 90.7 fL (80.0-100.0); Monocytes # (auto) 0.9 10 ^3/uL (0-1.3); Neutrophils # (auto) 7.9 10 ^3/uL (1.6-8.6); Neutrophils % (auto) 72.6 % (37.0-80.0); Platelet Count (auto) 239 10^3/uL (140-450); Red Blood Cells 3.57 10^6/uL (4.0-5.20); Red Cell Distribution Width 13.4 % (11.8-14.3); White Blood Cell 10.9 10^3/uL (4.4-10.8)
[2023-12-22 06:00] LABS: Chloride 106 mmol/L (98-107); Potassium 3.8 mmol/L (3.5-5.1); Sodium 142 mmol/L (136-145)
[2023-12-22 06:01] LABS: Anion Gap 6 (5-15); Calcium 9.7 mg/dL (8.7-10.4); Carbon Dioxide 30 mmol/L (20-31)
[2023-12-22 06:06] LABS: BUN/Creatinine Ratio 17.1 (10.0-20.0); Blood Urea Nitrogen 18 mg/dL (9-23); Glucose 111 mg/dL (74-106)
--- NOTE | 2023-12-22 16:32 | DVHDSRES ---
Discharge Summary Date of Admission Resident Creating Document: CARLOS HARRIS RESIDENT Dec 20, 2023 at 01:01 Date of Discharge: Dec 22, 2023 Admitting Diagnosis Acute Left lower quadrant pain Wounds: No wounds present at this time. Labs/Diagnostic Data: Laboratory Results Test 12/22/23 11:59 12/22/23 04:11 12/21/23 21:45 12/21/23 06:17 POC Glucose 121 mg/dl (70-106) White Blood Count 10.9 10^3/uL (4.4-10.8) Red Blood Count 3.57 10^6/uL (4.0-5.20) Hemoglobin 10.7 g/dL (12.2-16.2) Hematocrit 32.4 % (36.0-46.0) Mean Corpuscular Volume 90.7 fL (80.0-100.0) Mean Corpuscular Hemoglobin 30.0 pg (28.0-32.0) Mean Corpuscular Hemoglobin Concent 33.1 g/dL (32.0-36.0) Red Cell Distribution Width 13.4 % (11.8-14.3) Platelet Count 239 10^3/uL (140-450) Mean Platelet Volume 7.9 fL (6.9-10.8) Neutrophils (%) (Auto) 72.6 % (37.0-80.0) Lymphocytes (%) (Auto) 18.5 % (10.0-50.0) Monocytes (%) (Auto) 8.0 % (0.0-12.0) Eosinophils (%) (Auto) 0.4 % (0.0-7.0) Basophils (%) (Auto) 0.5 % (0.0-2.0) Neutrophils # (Auto) 7.9 10 ^3/uL (1.6-8.6) Lymphocytes # (Auto) 2.0 10 ^3/uL (0.4-5.4) Monocytes # (Auto) 0.9 10 ^3/uL (0-1.3) Eosinophils # (Auto) 0 10 ^3/uL (0-0.8) Basophils # (Auto) 0 10 ^3/uL (0-0.2) Nucleated Red Blood Cells 0.0 % Sodium Level 142 mmol/L (136-145) Potassium Level 3.8 mmol/L (3.5-5.1) Chloride Level 106 mmol/L (98-107) Carbon Dioxide Level 30 mmol/L (20-31) Anion Gap 6 (5-15) Blood Urea Nitrogen 18 mg/dL (9-23) Creatinine 1.05 mg/dL (0.550-1.02) Glomerular Filtration Rate Calc 60 mL/min (>90) BUN/Creatinine Ratio 17.1 (10.0-20.0) Serum Glucose 111 mg/dL (74-106) Calcium Level 9.7 mg/dL (8.7-10.4) Urine Color Light-orange (Yellow) Urine Clarity Ex.turbid (Clear) Urine pH 5.0 (5.0-9.0) Urine Specific [place] 1.020 (1.001-1.035) Urine Protein 1+ (Negative) Urine Ketones Negative (Negative) Urine Blood 3+ /uL (Negative) Urine Nitrite Negative (Negative) Urine Bilirubin Negative (Negative) Urine Urobilinogen Normal mg/dL (Negative) Urine Leukocyte Esterase 3+ /uL (Negative) Urine RBC 416 /hpf (0 - 4) Urine WBC 274 /hpf (0 - 5) Urine WBC Clumps Present /hpf (None Seen) Urine Squamous Epithelial Cells Few /hpf (<5) Urine Bacteria None seen /hpf (None Seen) Urine Mucus Few (None Seen) Urine Creatinine 93.80 mg/dL (30.0-125.0) Urine Sodium 48 mmol/L (40-220) Urine Glucose Normal mg/dL (Normal) Urine Total Protein 47.9 mg/dL (1-14) Urine Opiates Screen Pos (NEGATIVE) Urine Fentanyl Screen Neg (NEGATIVE) Urine Barbiturates Screen Neg (NEGATIVE) Urine Phencyclidine Screen Neg (NEGATIVE) Urine Amphetamines Screen Neg (NEGATIVE) Urine Benzodiazepines Screen Neg (NEGATIVE) Urine Cocaine Screen Neg (NEGATIVE) Urine Cannabinoids Screen Neg (NEGATIVE) Uric Acid 10.7 mg/dL (3.1-7.8) Phosphorus Level 4.1 mg/dL (2.4-5.1) Magnesium Level 1.9 mg/dL (1.6-2.6) Total Bilirubin 1.1 mg/dL (0.2-1.0) Aspartate Amino Transferase (AST) 17 U/L (13-40) Alanine Aminotransferase (ALT) 12 U/L (7-40) Alkaline Phosphatase 94 U/L (46-116) Total Protein 6.6 g/dL (5.7-8.2) Albumin 4.5 g/dL (3.2-4.8) Vitamin D 25-Hydroxy 27.7 ng/mL (30.0-100) Thyroid Stimulating Hormone (TSH) 2.09 uIU/mL (0.55-4.78) Test 12/20/23 17:07 12/20/23 10:55 12/20/23 02:00 Troponin I High Sensitivity 522 ng/L (</=34) Prothrombin Time 11.4 sec (9.3-11.8) Prothrombin Time INR 1.08 (0.9-1.15) Activated Partial Thromboplast Time 27.2 SEC (24.5-34.5) Hemoglobin A1c 5.7 % A1C (<5.7) B-Type Natriuretic Peptide 371.64 pg/mL (0-100) Vitamin B12 Level 345 pg/mL (211-911) Lactic Acid Level 1.7 mmol/L (0.4-2.0) Other Laboratory Tests 12/22/23 04:11 Brief Hx & Hospital Course: This is a 63-year-old female with past medical history of hypertension, kidney stones, prediabetes who presented to the ED with chief complaint of severe left lower quadrant pain that started approximately 8 hours before to admission. The patient described the pain as crampy in nature and rates the pain as a 10/10 on the pain scale located in the left lower quadrant with no specific pattern of radiation. The patient states that nothing makes the pain better or worse at this time. The patient also reports associated vomiting concomitant with the left lower quadrant pain. The patient also reported that she had a similar episode of pain on Saturday12/16/2023 that prompted her to visit [facility] where apparently she was treated with pain medications and a CT of the abdomen which per patient was unremarkable. The patient was discharged but pain restarted once again. The patient also reports a previous history of kidney stones seven months ago with similar type of pain that took over a month to pass the stone. Initial labs showed leukocytosis at 14.4 and SHARRI with a creatinine of 1.13 and BUN of 18. Initial troponins were significantly elevated at 1250 but last troponins are trending down at 600. According to the patient she does not have any history of heart failure but most recent echocardiogram showed an LVEF of 45% with normal cardiac valves and no pericardial effusion. We performed a CT scan of the abdomen and pelvis which showed a left kidney superior pole mass measuring 6.7 cm in maximum diameter with lobulated contours atrial calcifications concerning for malignancy there was also right kidney 3 cm hypodense lesions. We ordered an MRI of the abdomen with contrast with renal protocol to have a better overview of the masses. MRI of the abdomen showed a 6.2 cm left renal mass involving renal pelvis compatible with renal cell carcinoma, there was also left hydronephrosis and proximal hydroureter. Urology was consulted which recommended left nephroureterectomy which we will be performed as an outpatient. We explained to the patient imaging findings and current urology recommendations and patient agreed and understood. Today, upon examination, patient denied abdominal pain at this time and had no additional concerns/complaints at this time. We will discharge the patient home with a follow-up with Urology as an outpatient to schedule procedure. ROS Constitutional: Denies weight loss, fever and chills. HEENT: Denies changes in vision and hearing. Respiratory: Denies shortness of breath and cough Cardiovascular: Denies chest discomfort or palpitations GI: Denies abdominal pain, nausea, vomiting and diarrhea. : Denies dysuria and urinary frequency. Musculoskeletal: Denies myalgias and joint pain Skin: Denies rash and pruritus. Neurological: Denies dizziness, headache, vision or hearing problems Physical Examination General: Patient alert and oriented in person, place and time. Patient following commands. HEENT: Normocephalic, atraumatic, moist mucous membranes Respiratory/pulmonary: Clear lungs bilaterally, no associated crackles or wheezes. Cardiovascular: Normal heart sounds S1 and S2 with no associated murmurs Abdomen: Abdomen nondistended, there is no pain to palpation in any of the abdominal quadrants, no palpable masses. Extremities: There is no peripheral edema present at the lower extremities. Peripheral Pulses: 3+ Radial (R). 3+ Radial (L). 3+ Dorsalis pedis (R). 3+ Dorsalis pedis(L) Skin: No rashes or pruritus, there is no sacral edema present at this time. Neurological: Intact cranial nerves with no focal neurologic deficits Consults/Reason for consult Urology and nephrology for left kidney mass Operations or Procedures Exam: CT CT AB PEL WO CON-NO ORAL OR IV History: llq pain Comparison Study: None available at time of dictation. Technique: Multidetector spiral CT of the abdomen was performed from lung bases to pubic symphysis. Imaging was performed without IV contrast. Axial, coronal and sagittal multiplanar reformats were obtained from the axial data set by the technologist. Radiation Dose : 1. Abdomen/Pelvis: CTDIvol 28 mGy, DLP 1469 mGy*cm. Findings: Evaluation of solid organs is limited due to lack of intravenous contrast use. Lung Bases: No acute or significant lung base finding. Normal heart size. No pleural or pericardial effusion. Liver: The liver is normal in size. No focal lesions. Gallbladder and Biliary Tree: Unremarkable Spleen: Unremarkable Pancreas: The pancreas is grossly normal in appearance. Adrenal Glands: Unremarkable Kidneys: Right kidney 3 cm hypodense lesion. The left kidney demonstrates several hypodense lesions and internal calcification. There is mild left perirenal fat stranding. The left kidney superior pole demonstrates a potential mass measuring 6.76 cm. Bladder: Grossly unremarkable for degree of distention. Bowel: The stomach is grossly normal in appearance. Small bowel and colon are normal in caliber and distribution. Normal appendix is visualized in the right lower quadrant without findings of appendicitis. Sigmoid colon diverticulosis. Ascites: Absent Lymphadenopathy: No mesenteric, retroperitoneal or periportal lymphadenopathy. Abdominal Wall and Mesentery: Unremarkable. Vasculature: The visualized abdominal aorta is normal in size and caliber. Evaluation of abdominal and pelvic vessels is limited due to lack of intravenous contrast. Pelvic Organs: Unremarkable Musculoskeletal: No aggressive focal bony lesions, acute fractures or dislocation. Severe bilateral hip degenerative changes. Large osteophytes in the lower lumbar spine. IMPRESSION: Left kidney superior pole mass measuring 6.7 cm in maximum diameter with lobulated contours atrial calcifications. Limited evaluation without IV contrast. This is concerning for malignancy until proven otherwise. Right kidney 3 cm hypodense lesion which can also be further evaluated with contrast-enhanced MRI or ultrasound. CHEST RADIOGRAPH Indication:chest pain Technique: Single frontal view of the chest was obtained Comparison: None FINDINGS: Lines and Tubes: None Lungs: No focal consolidation. Pleura: No effusion. No pneumothorax. Cardiomediastinal contours: Unremarkable Bones: No acute osseous abnormality. IMPRESSION: Pulmonary edema. CT CT AB PELVIS W WO CON-IV ONLY History: RENAL MASS Comparison Study: None available at time of dictation. Technique: Multidetector spiral CT of the abdomen and pelvis was performed from lung bases to pubic symphysis. Initial imaging was done without IV contrast, followed by post contrast images of the abdomen and pelvis. Intravenous contrast was administered during this examination. Multiphase imaging was obtained. Axial, coronal and sagittal multiplanar reformats were performed by the technologist on a separate workstation. Radiation Dose : CT Dose: CTDI volume is 38.94 mGy. Dose-length product is 4697.62 mGy*cm Findings: Lung Bases: Atelactasis and scarring in the lung bases. Liver: There is diffuse hepatic steatosis Gallbladder and biliary Tree: Unremarkable Spleen: Unremarkable Pancreas: The pancreas is normal in appearance without focal lesions or abnormal enhancement. Adrenal Glands: Unremarkable Kidneys: There is a heterogeneously enhancing mass in the upper pole of the left kidney measuring up to at least 81 mm. There are other smaller masses in the left kidney. There is mild left hydronephrosis with some increased density in the proximal left ureter. There is a simple appearing right renal cyst. Bladder: Grossly unremarkable for degree of distention. Bowel: The stomach is grossly normal in appearance. Small bowel and colon are normal in caliber and distribution. Normal appendix is visualized in the right lower quadrant without findings of appendicitis. Sigmoid diverticulosis noted. Ascites: Absent Lymphadenopathy: No mesenteric, retroperitoneal or periportal lymphadenopathy. Abdominal wall and Mesentery: Unremarkable. Vasculature: The visualized abdominal aorta is normal in size and caliber. Abdominal and pelvic vessels demonstrate normal enhancement. Pelvic Organs: Suspect a fibroid in the uterus. Musculoskeletal: No aggressive focal bony lesions, acute fractures or dislocation. IMPRESSION: 1. Heterogeneously enhancing mass replacing much of the upper pole of the left kidney with other smaller masses in the upper pole of the left kidney. Dilation of the proximal ureter with some high density. Findings are likely malignant with possible involvement of the ureter. Urology evaluation is recommended. CT guided biopsy could be performed if clinically indicated. 2. Hepatic steatosis. Right renal cyst. Diverticulosis. Suspected uterine fibroid. This could be further evaluated with ultrasound RENAL ULTRASOUND CLINICAL HISTORY: ckd TECHNIQUE: Multiple ultrasound images of the kidneys and bladder were obtained. COMPARISON: CT abdomen 12/20/2023 FINDINGS: The right kidney measures 12.6 cm in length. The left kidney measures 14.8 cm. There is a 4.0 cm right upper pole cyst. There is a 7.4 x 4.8 cm nodular isoechoic structure in the upper pole of the right kidney. There is no significant hydronephrosis. There is no evidence of nephrolithiasis. Bladder prevoid volume measures 173 cc. Bladder grossly appears unremarkable. IMPRESSION: 1. Nonspecific 7.4 x 4.8 cm nodular isoechoic structure in the upper pole of the left kidney. This likely represents a renal mass. Consider further evaluation with follow-up CT abdomen and pelvis with contrast. Procedure: MRI MRI ABDOMEN W AND WO 12/21/2023 11:32 AM Indication:RENAL MASS. Comparison Study: CT scan dated 12/20/2023 Technique: Multi planar, multi sequence MRI of the abdomen was performed prior and after uneventful administration of IV contrast. FINDINGS: Lower Chest: Unremarkable. Hepatobiliary: Moderate hepatomegaly. Few subcentimeter cysts are seen. No suspicious lesion. No cholelithiasis. Subcentimeter gallbladder find mural diverticula are seen compatible with gallbladder adenomyomatosis. The common bile duct is normal in caliber. No intrahepatic ductal dilatation. No evidence of choledocholithiasis. Gallbladder is moderately distended. Spleen: Unremarkable. Pancreas: A 1.2 x 0.5 cm pancreatic body cyst. There is moderate pancreatic fatty infiltration. No pancreatic ductal dilatation. Adrenal Glands: Unremarkable. tract: A large heterogeneous mass is seen occupying the posterolateral cortex of the upper and middle poles of the left kidney measuring approximately 6.2 cm in craniocaudal, 6.2 cm in transverse and 5 cm in AP with extension to the pelvis. There is mild left hydronephrosis and hydroureter with urothelial thickening and enhancement. Left perinephric fat stranding noted. There is asymmetric dilatation of the left renal vein but no filling defect or occlusion is seen. The right kidney is normal in size and contains several simple appearing, Bosniak category 1 cysts which measure up to 5.5 x 3 cm. GI tract: The stomach is grossly normal in appearance. No evidence of small bowel obstruction. Diffuse colonic diverticulosis. The appendix is not visualized. No inflammatory change is noted in the right lower quadrant. Lymphatics: No mesenteric, retroperitoneal or periportal lymphadenopathy. Vasculature: The abdominal aorta is normal in in caliber. Bones/soft tissues: No acute abnormality. Other: None. IMPRESSION: 1. Large, 6.2 cm left renal mass involving the renal pelvis most compatible with renal cell carcinoma. The left renal vein is asymmetrically distended but there is no evidence of bland or tumor thrombus in this exam. Recommend urology consultation for possible excisional biopsy. 2. Moderate left hydronephrosis and proximal hydroureter with evidence of urothelial thickening. This is probably reactive or infectious in etiology. Concomitant transitional cell carcinoma is unlikely. 3. Diffuse colonic diverticulosis without diverticulitis. 4. Gallbladder adenomyomatosis. 5. Moderate hepatic steatosis. 6. Small, 1.2 cm pancreatic body cyst that could be a benign postinflammatory/ infectious pseudocyst or cystic neoplasm such as intraductal mucinous papillary neoplasm. Recommend follow-up by MRI or CT scan in 6-12 months. 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 Patient was counseled about treatment plan, medications, possible side effects, patientverbalized understanding. All questions were answered to the best of my ability. This discharge took greater then 30 minutes in planning, reviewing documentation, counseling the patient, and discussing with other team members." ASSESSMENT ASSESSMENT Assessment Date of Service: Dec 22, 2023 Billing Provider: CONSTANTINE DO MD Common Visit Codes: 07922-DHZ/OBS DISCH DAY >30min CARLOS HARRIS RESIDENT Dec 22, 2023 16:32 CONSTANTINE DO MD Dec 23, 2023 21:54
--- NOTE | 2023-12-22 16:39 | DVHPN2 ---
Progress Note Date Seen: Dec 22, 2023 Has the PT tested + for MRSA If YES, has PT been informed?: No Medical Necessity Reason Pt with a Central, PICC or Fol: No Subjective Review of Systems Pt resting in bed. Reports nephroureterectomy d/t renal mass was recommended as outpatient. Patient reports: No new complaints Objective vital signs Vital Sign Date Time Temp Pulse Resp B/P (MAP) Pulse Ox O2 Delivery O2 Flow Rate FiO2 12/22/23 13:00 97.8 77 20 105/62 (76) 97 97.8 12/22/23 08:00 Room Air* 0 21 Total Intake and Output 12/21/23 12/21/23 12/22/23 15:00 23:00 07:00 Intake Total 150 ml 300 ml 800 ml Output Total 900 ml Balance 150 ml 300 ml -100 ml medications Current Medications Medications Dose Ordered Sig/Jessica Route Start Time Stop Time Status Last Admin Dose Admin Sodium Chloride 10 ml Q8HR IV 12/20/23 06:00 12/22/23 14:00 10 ML Acetaminophen 325 mg Q4HP PRN PO 12/20/23 01:15 Acetaminophen/ Hydrocodone Bitart 1 tab Q4HP PRN PO 12/20/23 01:15 UNV Ondansetron HCl 4 mg Q4HP PRN IV 12/20/23 01:15 UNV Nitroglycerin 0.4 mg Q5MINP PRN SL 12/20/23 01:15 UNV Morphine Sulfate 2 mg Q30M PRN IV 12/20/23 01:15 UNV Diagnostic Test (Pha) 1 strip ACHS 12/20/23 07:00 12/22/23 11:30 1 STRIP Insulin Human Regular ACHS SC 12/20/23 07:00 12/21/23 21:57 2 UNITS Dextrose 50 ml UD PRN IV 12/20/23 01:00 Ondansetron HCl 4 mg Q4HP PRN IV 12/20/23 01:00 12/21/23 17:40 4 MG Nitroglycerin 0.4 mg Q5MINP PRN SL 12/20/23 01:00 Morphine Sulfate 2 mg Q30M PRN IV 12/20/23 01:00 12/20/23 10:33 2 MG Ceftriaxone Sodium 50 ml @ 100 mls/hr DAILY@09 IV 12/20/23 10:45 12/22/23 10:45 100 MLS/HR Furosemide 20 mg BIDD IV 12/20/23 18:00 12/22/23 06:03 20 MG Metronidazole 100 ml @ 100 mls/hr Q8HR IV 12/20/23 14:00 12/22/23 06:04 100 MLS/HR Metoprolol Tartrate 12.5 mg BID PO 12/20/23 22:00 12/22/23 10:46 12.5 MG Morphine Sulfate 4 mg Q4HPRN PRN IV 12/20/23 15:45 12/21/23 15:43 4 MG Lactulose 30 ml DAILY PO 12/21/23 10:00 12/22/23 10:45 30 ML Acetaminophen/ Hydrocodone Bitart 1 tab Q4H PO 12/21/23 21:30 12/22/23 10:45 1 TAB Examination General: Appears stated age. Obese. In no acute distress. Pulm: CTA bilaterally CVS: RRR. Normal S1 and S2 Abd: Normoactive bowel sounds, soft, nontender, and not distended Ext: No edema noted Neuro: Alert and oriented x 4. No focal deficits noted laboratory and microbiology Laboratory Tests 12/22/23 04:11 Test 12/22/23 04:11 Range/Units Serum Glucose 111 H 74-106 mg/dL Microbiology Date/Time Source Procedure Growth Status 12/20/23 17:07 Blood Blood Culture - Preliminary NO GROWTH AFTER 24 HOURS OF INCUBATION. Resulted Labs and/or images reviewed: Labs reviewed by me Problem List/Assessment/Plan Problem List/Assessment/Plan 1. SHARRI hemodynamically mediated- ongoing improvement in eGFR 60, downtrend in creat 1.05 2. Possible CKD stage 2- baseline creat unknown 3. L renal mass- per note urology recommended left nephroureterectomy as outpt. 4. Prediabetes 5.CHF 6.NSTEMI REC: Hold losartan during time course of SHARRI Avoidance of NSAIDs/IV contrast if able Use of loop diuretics as needed. Once discharged pt to follow up outpt No new recommendations from nephrology perspective. SHARRI improving. Will sign off of her case, please reconsult as needed. Thank you. Case discussed with Dr. Jayjay Figueroa Plan discussed with: Patient, Other (Dr Jayjay Figueroa) CYDNEY MARRUFO RECEIVER Dec 22, 2023 16:39
[2023-12-23 01:00] VITALS: BP 108/40; PULSE 80; RESP 16; TEMP 98.2; O2SAT 98
[2023-12-23 05:00] VITALS: BP 106/42; PULSE 78; RESP 18; TEMP 98.6; O2SAT 99
[2023-12-23 07:32] VITALS: PULSE 78; RESP 18; O2SAT 98
[2023-12-23 08:21] VITALS: BP 101/60; PULSE 79; RESP 20; TEMP 98.3
[2023-12-23 09:00] VITALS: BP 113/56; PULSE 77; RESP 18; TEMP 97.8; O2SAT 97
[2023-12-23] MEDS ORDERED: LOSA-533 PO (09:57)
[2023-12-23] MEDS ORDERED: METO25TA93 PO (09:57)
--- NOTE | 2023-12-23 13:21 | DVHPNRES ---
Progress Note Date Seen: Dec 23, 2023 Resident Creating Document: CHERYLE ALAN RESIDENT Has the PT tested + for MRSA If YES, has PT been informed?: No Medical Necessity Reason Pt with a Central, PICC or Fol: No Subjective Review of Systems This is a 63-year-old female with past medical history of hypertension, kidney stones, prediabetes who presented to the ED with chief complaint of severe left lower quadrant pain that started approximately 8 hours before to admission. The patient described the pain as crampy in nature and rates the pain as a 10/10 on the pain scale located in the left lower quadrant with no specific pattern of radiation. The patient states that nothing makes the pain better or worse at this time. The patient also reports associated vomiting concomitant with the left lower quadrant pain. The patient also reported that she had a similar episode of pain on Saturday12/16/2023 that prompted her to visit [facility] where apparently she was treated with pain medications and a CT of the abdomen which per patient was unremarkable. The patient was discharged but pain restarted once again. The patient also reports a previous history of kidney stones seven months ago with similar type of pain that took over a month to pass the stone. Initial labs showed leukocytosis at 14.4 and SHARRI with a creatinine of 1.13 and BUN of 18. Initial troponins were significantly elevated at 1250 but last troponins are trending down at 600. According to the patient she does not have any history of heart failure but most recent echocardiogram showed an LVEF of 45% with normal cardiac valves and no pericardial effusion. We performed a CT scan of the abdomen and pelvis which showed a left kidney superior pole mass measuring 6.7 cm in maximum diameter with lobulated contours atrial calcifications concerning for malignancy there was also right kidney 3 cm hypodense lesions. We ordered an MRI of the abdomen with contrast with renal protocol to have a better overview of the masses. MRI of the abdomen showed a 6.2 cm left renal mass involving renal pelvis compatible with renal cell carcinoma, there was also left hydronephrosis and proximal hydroureter. Urology was consulted which recommended left nephroureterectomy which we will be performed as an outpatient. We explained to the patient imaging findings and current urology recommendations and patient agreed and understood. Today, upon examination, patient denied abdominal pain at this time and had no additional concerns/complaints at this time. We will discharge the patient home with a follow-up with Urology as an outpatient to schedule procedure. Constitutional: Denies weight loss, fever and chills. HEENT: Denies changes in vision and hearing. Respiratory: Denies shortness of breath and cough Cardiovascular: Denies chest discomfort or palpitations GI: Denies abdominal pain, nausea, vomiting and diarrhea. : Denies dysuria and urinary frequency. Musculoskeletal: Denies myalgias and joint pain Skin: Denies rash and pruritus. Neurological: Denies dizziness, headache, vision or hearing problems Patient is seen today for clinical evaluation. Labs and chart reviewed. Patient reports doing well. Vitals stable. Patient is being discharged home today in hemodynamically stable condition. Patient was advised for follow up with the urologist for left renal mass which is suspected cell carcinoma with left hydronephrosis and proximal hydroureter. Status post Urology consult and urology recommended left nephroureterectomy which would be performed as an outpatient. Patient agree with the plan of care. Objective vital signs Vital Sign Date Time Temp Pulse Resp B/P (MAP) Pulse Ox O2 Delivery O2 Flow Rate FiO2 12/23/23 09:00 97.8 77 18 113/56 (75) 97 97.8 12/23/23 07:32 Room Air* 0 21 Total Intake and Output 12/22/23 12/22/23 12/23/23 15:00 23:00 07:00 Intake Total 620 ml 700 ml Output Total 500 ml Balance 120 ml 700 ml medications Current Medications Medications Dose Ordered Sig/Jessica Route Start Time Stop Time Status Last Admin Dose Admin Sodium Chloride 10 ml Q8HR IV 12/20/23 06:00 12/23/23 05:54 10 ML Acetaminophen 325 mg Q4HP PRN PO 12/20/23 01:15 Acetaminophen/ Hydrocodone Bitart 1 tab Q4HP PRN PO 12/20/23 01:15 UNV Ondansetron HCl 4 mg Q4HP PRN IV 12/20/23 01:15 UNV Nitroglycerin 0.4 mg Q5MINP PRN SL 12/20/23 01:15 UNV Morphine Sulfate 2 mg Q30M PRN IV 12/20/23 01:15 UNV Diagnostic Test (Pha) 1 strip ACHS 12/20/23 07:00 12/23/23 06:05 1 STRIP Insulin Human Regular ACHS SC 12/20/23 07:00 12/22/23 22:08 3 UNITS Dextrose 50 ml UD PRN IV 12/20/23 01:00 Ondansetron HCl 4 mg Q4HP PRN IV 12/20/23 01:00 12/21/23 17:40 4 MG Nitroglycerin 0.4 mg Q5MINP PRN SL 12/20/23 01:00 Morphine Sulfate 2 mg Q30M PRN IV 12/20/23 01:00 12/20/23 10:33 2 MG Ceftriaxone Sodium 50 ml @ 100 mls/hr DAILY@09 IV 12/20/23 10:45 12/22/23 10:45 100 MLS/HR Furosemide 20 mg BIDD IV 12/20/23 18:00 12/23/23 05:53 20 MG Metronidazole 100 ml @ 100 mls/hr Q8HR IV 12/20/23 14:00 12/22/23 22:04 100 MLS/HR Metoprolol Tartrate 12.5 mg BID PO 12/20/23 22:00 12/22/23 22:05 12.5 MG Morphine Sulfate 4 mg Q4HPRN PRN IV 12/20/23 15:45 12/21/23 15:43 4 MG Lactulose 30 ml DAILY PO 12/21/23 10:00 12/22/23 10:45 30 ML Acetaminophen/ Hydrocodone Bitart 1 tab Q4H PO 12/21/23 21:30 12/23/23 06:32 1 TAB Examination General: Patient alert and oriented in person, place and time. Patient following commands. HEENT: Normocephalic, atraumatic, moist mucous membranes Respiratory/pulmonary: Clear lungs bilaterally, no associated crackles or wheezes. Cardiovascular: Normal heart sounds S1 and S2 with no associated murmurs Abdomen: Abdomen nondistended, there is no pain to palpation in any of the abdominal quadrants, no palpable masses. Extremities: There is no peripheral edema present at the lower extremities. Peripheral Pulses: 3+ Radial (R). 3+ Radial (L). 3+ Dorsalis pedis (R). 3+ Dorsalis pedis(L) Skin: No rashes or pruritus, there is no sacral edema present at this time. Neurological: Intact cranial nerves with no focal neurologic deficits laboratory and microbiology Laboratory Tests 12/22/23 04:11 Test 12/22/23 04:11 Range/Units Serum Glucose 111 H 74-106 mg/dL Microbiology Date/Time Source Procedure Growth Status 12/20/23 17:07 Blood Blood Culture - Preliminary NO GROWTH AFTER 48 HOURS OF INCUBATION. Resulted Problem List/Assessment/Plan Problem List/Assessment/Plan Assessment/Plan Severe left lower quadrant pain due to left renal mass, R/O diverticulitis -On 12/21/2023 MRI of the abdomen revealed-Large, 6.2 cm left renal mass involving the renal pelvis most compatible with renal cell carcinoma. The left renal vein is asymmetrically distended but there is no evidence of bland or tumor thrombus in this exam. Recommend urology consultation for possible excisional biopsy. Moderate left hydronephrosis and proximal hydroureter with evidence of urothelial thickening. This is probably reactive or infectious in etiology. Concomitant transitional cell carcinoma is unlikely. -CT abdomen pelvis revealed Left kidney superior pole mass measuring 6.7 cm in maximum diameter with lobulated contours atrial calcifications. - Urology was consulted which recommended left nephroureterectomy which we will be performed as an outpatient. We explained to the patient imaging findings and current urology recommendations and patient agreed and understood Acute systolic heart failure (HFrEF 45%) -initial BNP was 371.64 -chest x-ray was showing mild pulmonary vascular congestion -echocardiogram is showing an LVEF of 45% with normal cardiac valves and no pericardial effusion. -continue metoprolol tartrate 12.5mg BID -Continue furosemide 20mg BID -Strict ins and outs -Monitor BP closely NSTEMI likely type 2 secondary to above, R/O ischemia -Troponin initially positive at 1250>1186. Now trending down 600 -EKG revealed sinus rhythm with nonspecific ST-T changes. -echocardiogram is showing an LVEF of 45% with normal cardiac valves and no pericardial effusion. - Cardiology on board #SHARRI likely due to hemodynamically mediated /VMN -serum creatinine 1.13> 1.13> 1.11 -discontinue IV fluid -Monitor BMP #Diffuse colonic diverticulosis without diverticulitis. -conservative management #Gallbladder adenomyomatosis. -follow up outpatient # Moderate hepatic steatosis. -conservative management #Small, 1.2 cm pancreatic body cyst that could be a benign postinflammatory/ infectious pseudocyst or cystic neoplasm such as intraductal mucinous papillary neoplasm. Prediabetes -last hemoglobin A1c was 5.7% which is normal range -no need for medications at this time. -counseled patient regarding healthy low carb diet, lifestyle modification and physical exercise. Goals of care discussed with the patient at bedside for >23min, FULL CODE Plan discussed with Dr. Turner Plan discussed with: Patient Plan discussed with: Patient, Other (RN) Date of Service: Dec 23, 2023 Billing Provider: CONSTANTINE TURNER MD Common Visit Codes: 86768-[id number] INP/OBS CARE(HIGH) CHERYLE ALAN RESIDENT Dec 23, 2023 13:21 CONSTANTINE TURNER MD Dec 23, 2023 21:54
== END 2023-12-23 09:00 | disposition home or self-care (01) | DRG 468 ==
LOC: EDBD 22:34 → ER 22:34 → TELE 12-20 01:01 → TELE-EAST 12-20 04:55
PROVIDERS: ADMIT Internal Medicine Geriatric Medicine; ATTEND Internal Medicine Geriatric Medicine
DX: N28.89 Other specified disorders of kidney and ureter (principal); R65.11 Systemic inflammatory response syndrome (SIRS) of non-infectious origin with acute organ dysfunction; I21.A1 Myocardial infarction type 2; I50.21 Acute systolic (congestive) heart failure; N17.0 Acute kidney failure with tubular necrosis; K57.30 Diverticulosis of large intestine without perforation or abscess without bleeding; Z88.0 Allergy status to penicillin; R73.03 Prediabetes; I13.0 Hypertensive heart and chronic kidney disease with heart failure and stage 1 through stage 4 chronic kidney disease, or unspecified chronic kidney disease; N18.9 Chronic kidney disease, unspecified; Z87.442 Personal history of urinary calculi; Z79.84 Long term (current) use of oral hypoglycemic drugs; Z79.899 Other long term (current) drug therapy
CPT/HCPCS: 36415; 71045; 74178; 74183; 76775; 80048; 80053; 80307; 81001; 82306; 82570; 82607; 82962; 83036; 83605; 83735; 83880; 84100; 84156; 84300; 84443; 84484; 84550; 85025; 85610; 85730; 87040; 87086; 93005; 93306; 96374; 96375; G0378; J1815; J2405; J3490

== ENCOUNTER 2024-03-12 14:39 | Inpatient (IN) | payer MEDICAID ==
[~2024-03-12] VITALS: Ht 162.6 cm; Wt 118.0 kg
[~2024-03-12 14:39] MED LIST: ASPI-543 PO; CHOL20002 PO; LOSA-533 PO; METF-1145 PO; METO25TA93 PO; PRAV20TA3 PO
--- NOTE | 2024-03-12 15:11 | ECG ---
[facility] Test Date: 2024-03-12 Test Time: 14:57:43 Pat Name: BRIGHT ESPINO Department: ER Room: 0279T Gender: F [employer] [place]: TIM : 1960 Requested By: EFRAIN MONGE Order Number: [id number] Reading MD: Dhiraj Haji Measurements Intervals [place] Rate: 135 P: 0 AR: 0 QRS: 118 QRSD: 122 T: 76 QT: 381 QTc: 572 Interpretive Statements Atrial fibrillation with rapid ventricular response Ventricular premature complex Nonspecific intraventricular conduction delay Probable inferior infarct, acute Lateral leads are also involved Electronically Signed On 03-13-2024 17:17:49 PST by Dhiraj Haji Please click the below link to view image of tracing.
[2024-03-12 15:26] LABS: Basophils # (auto) 0.1 10 ^3/uL (0-0.2); Eosinophils # (auto) 0.1 10 ^3/uL (0-0.8); Eosinophils % (auto) 0.8 % (0.0-7.0); Hematocrit 40.1 % (36.0-46.0); Hemoglobin 13.1 g/dL (12.2-16.2); Lymphocytes # (auto) 1.9 10 ^3/uL (0.4-5.4); Lymphocytes % (auto) 23.2 % (10.0-50.0); Mean Corpuscular Hemoglobin 27.5 pg (28.0-32.0); Mean Corpuscular Hgb Conc. 32.7 g/dL (32.0-36.0); Mean Corpuscular Volume 84.2 fL (80.0-100.0); Monocytes # (auto) 0.5 10 ^3/uL (0-1.3); Monocytes % (auto) 6.7 % (0.0-12.0); Neutrophils # (auto) 5.5 10 ^3/uL (1.6-8.6); Neutrophils % (auto) 68.3 % (37.0-80.0); Nucleated Red Blood Cells % 0.1 %; Platelet Count (auto) 268 10^3/uL (140-450); Red Blood Cells 4.76 10^6/uL (4.0-5.20); Red Cell Distribution Width 15.4 % (11.8-14.3); White Blood Cell 8.1 10^3/uL (4.4-10.8)
[2024-03-12 15:34] LABS: Chloride 107 mmol/L (98-107); Potassium 4.5 mmol/L (3.5-5.1); Sodium 140 mmol/L (136-145)
[2024-03-12 15:35] LABS: Anion Gap 9 (5-15); Carbon Dioxide 24 mmol/L (20-31)
--- NOTE | 2024-03-12 15:35 | DVH ---
XY CHEST PORTABLE, HISTORY: Palpitations COMPARISON: XY CHEST PORTABLE on DOS: 12/20/23 XY CHEST PORTABLE on DOS: 12/20/23 TECHNICAL DATA: 1 view of the chest was obtained. FINDINGS: Lines and tubes: None Cardiomediastinal silhouette: normal Pulmonary vasculature: normal Lung expansion: low Lung airspace: normal Lung interstitium: normal Pleura: normal Pneumothorax: no Bones: Unremarkable Other: no IMPRESSION: No acute intrathoracic abnormality.
[2024-03-12 15:41] LABS: BUN/Creatinine Ratio 21.6 (10.0-20.0); Blood Urea Nitrogen 21 mg/dL (9-23); Magnesium 1.8 mg/dL (1.6-2.6)
--- NOTE | 2024-03-12 15:48 | ED.PDOC ---
HPI Comments 64y F who presents to the ED for chief complaint of palpitations. Pt states she was at PCP appt for general labs and states after EKG and vitals were checked, pt was told it came back irregular and her heart rate was elevated and pt was told to come to the ED for further evaluation. Pt in the ED, otherwise denies any past history of irregular heart beat. Pt otherwise denies any other symptoms. Chief Complaint: Palpitations Time Seen by MD: 15:44 Primary Care Provider: CLEVE Parsons Notes: Nurses Notes Allergies: Coded Allergies: Penicillins (Verified Allergy, Unknown, 01/03/15) Home Meds Active Scripts Losartan Potassium (Losartan Potassium) 25 Mg Tab, 1 TAB PO DAILY for 30 Days, #30 TAB 1 Refill Prov:CARLOS HARRIS RESIDENT 12/23/23 Metoprolol Succinate (Metoprolol Succinate Er) 25 Mg Tab, 1 TAB PO DAILY for 30 Days, #30 TAB 5 Refills Prov:CARLOS HARRIS RESIDENT 12/23/23 Reported Medications Aspirin (Aspir-Low) 81 Mg Tab, 81 MG PO DAILY for 30 Days, MG 12/20/23 Pravastatin Sodium (PRAVACHOL TABLET) 20 Mg Tb, 1 TAB PO DAILY 12/20/23 Cholecalciferol (VITAMIN D3) 2,000 Unit Tab, 1 CAP PO DAILY 12/20/23 Metformin Hydrochloride (Metformin Hcl Er) 500 Mg Tab, 1 TAB PO BID 12/20/23 Information Source: Patient, Relative Mode of Arrival: Wheelchair Brought in by: son Severity: Moderate Timing: Hours Duration: Since onset Prehospital treatment: None Onset: At Rest Cardiac Risk Factors: Hyperlipidemia, HTN PE Risk Factors: None History of: None Modifying Factors: Nothing Associated Signs and Symptoms: Palpitations Past Medical History PAST MEDICAL HISTORY: Kidney Stones Surgical History: Hernia Repair HEEL SE[employer]TER MACHINE History: No Pertinent HEEL SEAT FITTER MACHINE History Family History Family History: Reviewed,noncontributory to illness Social History Smoker: Non-Smoker Alcohol: Denies ETOH Use Drugs: Denies Drug Use Lives In: Home Constitutional: denies: chills, diaphoresis, fatigue, fever, malaise, sweats, weakness, others EENTM: denies: blurred vision, double vision, ear bleeding, ear discharge, ear drainage, ear pain, ear ringing, eye pain, eye redness, hearing loss, mouth pain, mouth swelling, nasal discharge, nose bleeding, nose congestion, nose pain, photophobia, tearing, throat pain, throat swelling, voice changes, others Respiratory: denies: cough, hemoptysis, orthopnea, SOB at rest, shortness of breath, SOB with excertion, stridor, wheezing, others Cardiovascular: reports: palpitations; denies: chest pain, dizzy spells, diaphoresis, Dyspnea on exertion, edema, irregular heart beat, left arm pain, lightheadedness, PND, syncope, others Gastrointestinal: denies: abdomen distended, abdominal pain, blood streaked bowels, constipated, diarrhea, dysphagia, difficulty swallowing, hematemesis, melena, nausea, poor appetite, poor fluid intake, rectal bleeding, rectal pain, vomiting, others Genitourinary: denies: abnormal vagina bleeding, burning, dyspareunia, dysuria, flank pain, frequency, hematuria, incontinence, pain, , vagina discharge, urgency, others Neurological: denies: dizziness, fainting, headache, left sided numbness, left sided weakness, numbness, paresthesia, pre-existing deficit, right sided numbness, right sided weakness, seizure, speech problems, tingling, tremors, weakness, others Musculoskeletal: denies: back pain, gout, joint pain, joint swelling, muscle pain, muscle stiffness, neck pain, others Integumetry: denies: bruises, change in color, change in hair/nails, dryness, laceration, lesions, lumps, rash, wounds, others Allergic/Immunocompromised: denies: Difficulty Healing, Frequent Infections, Hives, Itching, others Hematologic/Lymphatic: denies: anemia, blood clots, easy bleeding, easy bruising, swollen glands, others Endocrine: denies: excessive hunger, excessive sweating, excessive thirst, excessive urination, flushing, intolerance to cold, intolerance to heat, unexplained weight gain, unexplained weight loss, others Psychiatric: denies: anxiety, bipolar disorder, depression, hopeless, panic disorder, schizophrenia, sleepless, suicidal, others All Other Systems: Reviewed and Negative Physical Exam General Appearance: Moderate Distress HEENT: Normal ENT Inspection, Pharynx Normal, TMs Normal Neck: Full Range of Motion, Non-Tender, Normal, Normal Inspection Respiratory: Chest Non-Tender, Lungs Clear, No Accessory Muscle Use, No Re spiratory Distress, Normal Breath Sounds Cardiovascular: No Edema, No JVD, No Murmur, No Gallop, Tachycardia Breast Exam: Deferred Gastrointestinal: No Organomegaly, Non Tender, No Pulsatile Mass, Normal Bowel Sounds, Soft Genitalia: Deferred Pelvic: Deferred Rectal: Deferred Extremities: No calf tenderness, Normal capillary refill, Normal inspection, Normal range of motion, Non-tender, No pedal edema Musculoskeletal : Apperance: Normal Neurologic: Alert, buncher hand II-XII nml as Tested, Motor Weakness, Normal Affect, Normal Mood, No Sensory Deficits Cerebellar Function: Normal Reflexes: Normal Skin: Dry, Normal Color, Warm Lymphatic: No Adenopathy EKG EKG : Pulse Rate (adult): 135 [place]: Normal Cardiac Rhythm: Afib Block: None Hypertrophy: None ST: Normal Was a procedure done? Was a procedure done?: No CP Differential Dx Differential Diagnosis: A-fib, A-Flutter, Angina, Anxiety / Panic Attack, Heart Failure, PVC's, Sinus Tachycardia Differential Diagnosis: HTN Essential, HTN Accelerated Differential Diagnosis: Chest Wall Pain X-Ray, Labs, Meds, VS Vital Signs Date Time Temp Pulse Resp B/P (MAP) Pulse Ox O2 Delivery O2 Flow Rate FiO2 03/12/24 20:00 134 03/12/24 19:24 136 03/12/24 19:01 137 20 113/68 (83) 94 03/12/24 18:00 97/53 03/12/24 17:20 114/64 (81) 03/12/24 17:20 114/64 03/12/24 16:58 134/71 03/12/24 16:38 139 Room Air* 0 21 03/12/24 16:30 140 03/12/24 16:27 98.6 140 22 134/71 (92) 98 98.6 03/12/24 15:52 134 03/12/24 15:48 135 03/12/24 15:08 97.8 135 19 133/74 (93) 95 03/12/24 14:57 135 Lab Test 03/12/24 18:28 03/12/24 16:22 03/12/24 15:17 Range/Units Troponin I High Sensitivity 10 10 10 </=34 ng/L White Blood Count 8.1 4.4-10.8 10^3/uL Red Blood Count 4.76 4.0-5.20 10^6/uL Hemoglobin 13.1 12.2-16.2 g/dL Hematocrit 40.1 36.0-46.0 % Mean Corpuscular Volume 84.2 80.0-100.0 fL Mean Corpuscular Hemoglobin 27.5 L 28.0-32.0 pg Mean Corpuscular Hemoglobin Concent 32.7 32.0-36.0 g/dL Red Cell Distribution Width 15.4 H 11.8-14.3 % Platelet Count 268 140-450 10^3/uL Mean Platelet Volume 7.6 6.9-10.8 fL Neutrophils (%) (Auto) 68.3 37.0-80.0 % Lymphocytes (%) (Auto) 23.2 10.0-50.0 % Monocytes (%) (Auto) 6.7 0.0-12.0 % Eosinophils (%) (Auto) 0.8 0.0-7.0 % Basophils (%) (Auto) 1.0 0.0-2.0 % Neutrophils # (Auto) 5.5 1.6-8.6 10 ^3/uL Lymphocytes # (Auto) 1.9 0.4-5.4 10 ^3/uL Monocytes # (Auto) 0.5 0-1.3 10 ^3/uL Eosinophils # (Auto) 0.1 0-0.8 10 ^3/uL Basophils # (Auto) 0.1 0-0.2 10 ^3/uL Nucleated Red Blood Cells 0.1 % Sodium Level 140 136-145 mmol/L Potassium Level 4.5 3.5-5.1 mmol/L Chloride Level 107 98-107 mmol/L Carbon Dioxide Level 24 20-31 mmol/L Anion Gap 9 5-15 Blood Urea Nitrogen 21 9-23 mg/dL Creatinine 0.97 0.550-1.02 mg/dL Glomerular Filtration Rate Calc 66 >90 mL/min BUN/Creatinine Ratio 21.6 H 10.0-20.0 Serum Glucose 114 H 74-106 mg/dL Calcium Level 10.0 8.7-10.4 mg/dL Magnesium Level 1.8 1.6-2.6 mg/dL B-Type Natriuretic Peptide 128.49 0-100 pg/mL Current Medications Medications (Trade) Dose Ordered Sig/Jessica Route Start Time Stop Time Status Last Admin Aspirin 162 mg ONCE ONCE PO 03/12/24 15:15 03/12/24 15:16 DC 03/12/24 16:11 Diltiazem HCl (Cardizem Injection) 10 mg ONCE ONCE IV 03/12/24 15:15 03/12/24 15:16 DC 03/12/24 16:10 Diltiazem HCl 125 ml @ 5 mls/hr Q24H ONCE IV 03/12/24 16:30 03/13/24 16:29 03/12/24 16:58 Amiodarone HCl 100 ml @ 300 mls/hr ONCE ONCE IV 03/12/24 19:45 03/12/24 20:04 DC 03/12/24 19:56 XY CHEST PORTABLE, IMPRESSION: No acute intrathoracic abnormality. IV Hep-Lock was established The patient was given aspirin 162 mg by mouth We initially gave the patient Cardizem IV push and then started the patient on the Cardizem drip without any diversion. The patient was then started on amiodarone. The patient was bolused with the amiodarone and then placed on the drip. The CBC and chemistry panel are within normal limits The troponin level is negative We did speak with the food assembler commissary kitchen () The patient is being admitted to the hospitalist Recommendation was to start the patient on amiodarone by the food assembler commissary kitchen Images Reviewed?: Images reviewed and evaluated by me Time of 1ST Reevaluation: 16:15 Reevaluation 1ST: Unchanged Patient Education/Counseling: Diagnosis, Treatment, Prognosis Family Education/Counseling: Diagnosis, Treatment, Prognosis Additional Information - I reviewed the following notes from patient's past medical encounters: - The following tests were ordered, and results were reviewed by me: (Labs, X- Ray, EKG): cbc, cmp, mag, bnp, ekg x 3, troponin x3 , chest x-ray - Additional information was gathered from interviewing the following independent Historian: (Family, Other Providers, EMT): pt son, - I reviewed and agreed with the following test results read by other provider: (X-ray, CT, US): radiologist - I discussed treatments and results with medical personnel and: (consultants, family): none Departure 1 Departure Time of Disposition: 20:36 Impression: Primary Impression: Atrial flutter Qualified Codes: I48.92 - Unspecified atrial flutter Disposition: 09 ADMITTED INPATIENT Admit to: ICU Condition: Fair Critical Care Note Critical Care Time?: Yes (35 min-critical care time only) Stability Stability form required: Yes Unstable for transfer: ICU, CCU, PCU, MARGARET (Intensive VS monitoring), ED Physician Assesment (Clinical assesment) Heart Score Heart Score: Heart Score Response (Comments) Value History Slightly Suspicious [address]-Deviation 2 Age 45-64 1 Risk Factors 1 or 2 risk factors 1 Troponin Normal limit 0 Total 4 I personally scribed for EFRAIN MONGE MD ([email or web address]) on 03/12/24 at 15:48. Electronically submitted by Barbi Clarke ([email or web address]). EFRAIN MONGE MD Mar 12, 2024 15:48
[2024-03-12 16:08] LABS: Glucose 114 mg/dL (74-106)
[2024-03-12] MEDS: dilTIAZem 25 MG/5 ML VIAL IV ONE (16:10)
[2024-03-12] MEDS: ASPirin 81 mg TAB PO ONE (16:11)
[2024-03-12 16:38] VITALS: PULSE 139
[2024-03-12] MEDS: dilTIAZem 125mg/125ml BAG KIT 125 ML IV ONE (16:58)
[2024-03-12] MEDS: AMIODARONE BOLUS KIT 100 ML IV ONE (19:56)
[2024-03-12] MEDS: AMIODARONE 360mg/200mL PREMIX 200 ML IV ONE (20:25)
[2024-03-12] MEDS ORDERED: MORPHINE SULFATE INJ 2 MG/ml SYRG IV PRN (21:30)
[2024-03-12] MEDS ORDERED: NITROGLYCERIN 0.4 MG SL TAB SL PRN (21:30)
--- NOTE | 2024-03-12 21:33 | DVHHPRES ---
History of Present Illness Resident Creating Document: PEÑA JOSÉ RESIDENT History of Present Illness This is a 63-year-old female with past medical history of hypertension, kidney stones, prediabetes who presented to the ED after regular evaluation at primary care physician, patient was told that she had irregular rhythm and elevated heart rate and recommended to come to ED for further evaluation. At the time of evaluation, patient denied any symptoms including chest pain, palpitation, shortness of breath, dizziness, any other symptoms. As per Cardiology, patient was already initiated on amiodarone for cardioversion. No any other events notified from nursing staff. Past Medical History hypertension, kidney stones, prediabetes, renal mass Past Surgical History: None Family History: None Review of Systems Constitutional: No: Fever, Chills, Sweats, Weakness, Malaise, Other Eyes: No: Pain, Vision change, Conjunctivae inflammation, Eyelid inflammation, Other, Redness ENT: No: Ear pain, Ear discharge, Nose pain, Nose discharge, Nose congestion, Mouth pain, Mouth swelling, Throat pain, Throat swelling, Other Respiratory: No: Cough, Dry, Shortness of breath, SOB with excertion, Wheezing, Hemoptysis, Pleuritic Pain, Sputum, Wheezing, Other Cardiovascular: No: Chest Pain, Palpitations, Orthopnea, Paroxysmal Noc. Dyspnea, Edema, Lt Headedness, Other Gastrointestinal: No: Nausea, Vomiting, Abdominal Pain, Diarrhea, Constipation, Melena, Hematochezia, Other Genitourinary: No Dysuria, No Frequency, No Incontinence, No Hematuria, No Retention, No Other Musculoskeletal: No: other, neck pain, shoulder pain, arm pain, back pain, hand pain, leg pain, foot pain Skin: No: Rash, Lesions, Jaundice, Bruising, Other Neurological: No: Weakness, Numbness, Incoordination, Change in speech, Confusion, Seizures, Other Allergies: Coded Allergies: Penicillins (Verified Allergy, Unknown, 01/03/15) Medications Current Medications Medications Dose Ordered Sig/Jessica Route Start Time Stop Time Status Last Admin Dose Admin Nitroglycerin 0.4 mg Q5MINP PRN SL 03/12/24 21:30 UNV Morphine Sulfate 2 mg Q30M PRN IV 03/12/24 21:30 UNV Aspirin 81 mg DAILY PO 03/13/24 10:00 UNV Atorvastatin Calcium 40 mg HS PO 03/12/24 22:00 UNV Enoxaparin Sodium 120 mg Q12HR SC 03/12/24 22:00 UNV Exam Vital Signs Vital Signs Date Time Temp Pulse Resp B/P (MAP) Pulse Ox O2 Delivery O2 Flow Rate FiO2 03/12/24 20:00 97.7 130 19 109/67 (81) 97 97.7 03/12/24 19:30 Room Air* 0 21 General Appearance: Alert, Oriented X3 HEENT: Atraumatic, PERRLA, EOMI Respiratory: Clear to auscultation, Normal air movement Cardiovascular: Normal S1, Normal S2, Other (Irregular irregular, tachycardia) Abdominal: Normal bowel sounds, Soft Extremities: No clubbing, No cyanosis, No edema Skin: No rashes, No breakdown Neuro: Normal gait, Normal speech, Strength at 5/5 X4 ext, Normal tone, Sensation intact Psych/Mental Status: Mental status NL, Mood NL Labs/Xrays Labs Test 03/12/24 18:28 03/12/24 15:17 Range/Units Troponin I High Sensitivity 10 </=34 ng/L White Blood Count 8.1 4.4-10.8 10^3/uL Red Blood Count 4.76 4.0-5.20 10^6/uL Hemoglobin 13.1 12.2-16.2 g/dL Hematocrit 40.1 36.0-46.0 % Mean Corpuscular Volume 84.2 80.0-100.0 fL Mean Corpuscular Hemoglobin 27.5 L 28.0-32.0 pg Mean Corpuscular Hemoglobin Concent 32.7 32.0-36.0 g/dL Red Cell Distribution Width 15.4 H 11.8-14.3 % Platelet Count 268 140-450 10^3/uL Mean Platelet Volume 7.6 6.9-10.8 fL Neutrophils (%) (Auto) 68.3 37.0-80.0 % Lymphocytes (%) (Auto) 23.2 10.0-50.0 % Monocytes (%) (Auto) 6.7 0.0-12.0 % Eosinophils (%) (Auto) 0.8 0.0-7.0 % Basophils (%) (Auto) 1.0 0.0-2.0 % Neutrophils # (Auto) 5.5 1.6-8.6 10 ^3/uL Lymphocytes # (Auto) 1.9 0.4-5.4 10 ^3/uL Monocytes # (Auto) 0.5 0-1.3 10 ^3/uL Eosinophils # (Auto) 0.1 0-0.8 10 ^3/uL Basophils # (Auto) 0.1 0-0.2 10 ^3/uL Nucleated Red Blood Cells 0.1 % Sodium Level 140 136-145 mmol/L Potassium Level 4.5 3.5-5.1 mmol/L Chloride Level 107 98-107 mmol/L Carbon Dioxide Level 24 20-31 mmol/L Anion Gap 9 5-15 Blood Urea Nitrogen 21 9-23 mg/dL Creatinine 0.97 0.550-1.02 mg/dL Glomerular Filtration Rate Calc 66 >90 mL/min BUN/Creatinine Ratio 21.6 H 10.0-20.0 Serum Glucose 114 H 74-106 mg/dL Calcium Level 10.0 8.7-10.4 mg/dL Magnesium Level 1.8 1.6-2.6 mg/dL B-Type Natriuretic Peptide 128.49 0-100 pg/mL Assessment/Plan Assessment/Plan New onset atrial flutter 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 hepatic steatosis. Prediabetes Morbid obesity Plan/recommendation -as per Cardiology, initiate amiodarone, given bolus 150 mg, then 1 milligram/kg for 6 hour then 0.5 milligram/kg continuous. -anticoagulation Lovenox([id number] Score :3, follow with cardiology recommendation -IV Lasix 20 mg IV daily -continue home medication aspirin, atorvastatin. -PUD prophylaxis with Protonix -DVT prophylaxis : Already on therapeutic Lovenox Goals of care discussed greater than 22 minutes, full code status. Plan discussed with Dr. Pratt Plan discussed with: Patient My Orders Orders - PEÑA JOSÉ RESIDENT Procedure Category Date Status Time Admit ADMIT 03/12/24 Transmitted 21:25 Nitroglycerin PHA 03/12/24 Logged Sublingual (Ntrostat 21:30 Morphine Sulfate PHA 03/12/24 Logged Injection 21:30 Oxygen By Nasal RT 03/12/24 Transmitted Cannula 21:25 Stat Ekg For Chest SHIRAZ 03/12/24 In Process Pain 21:25 Notify Of Changes SHIRAZ 03/12/24 In Process From Base 21:25 Ship Construction Teacher For SHIRAZ 03/12/24 In Process 24 Hours 21:25 Emergency Dysrhythmia SHIRAZ 03/12/24 In Process Protocol 21:25 Rhythm Strips Once SHIRAZ 03/12/24 In Process Every Shift 21:25 Aspirin Tablet PHA 03/13/24 Logged 10:00 Atorvastatin (Lipitor) PHA 03/12/24 Logged 22:00 Enoxaparin Sodium PHA 03/12/24 Logged (Lovenox) 22:00 Cardiac DIET 03/13/24 Transmitted Diet-2gna,Lofat,Lochol Breakfast * Cardiology Consult CONS 03/12/24 Transmitted 21:31 Urinalysis LAB 03/12/24 Transmitted 21:32 Drug Screen LAB 03/12/24 Transmitted 21:32 Date of Service: Mar 12, 2024 Billing Provider: HERNANDEZ PRATT MD Common Visit Codes: [id number] INP/OBS CARE (HIGH) PEÑA JOSÉ RESIDENT Mar 12, 2024 21:33 HERNANDEZ PRATT MD Mar 13, 2024 23:14
[2024-03-12] MEDS: PANTOPRAZOLE 40 MG TAB PO ONE (22:22)
[2024-03-12] MEDS: FUROSEMIDE 20 MG/2 ML VIAL IV ONE (22:22)
[2024-03-12] MEDS: ATORVASTATIN 20 MG TAB PO SCH (22:22)
[2024-03-12] MEDS: traMADol HCL 50 MG TAB PO ONE (22:23)
[2024-03-12] MEDS: ENOXAPARIN SOD 100 MG/1 ML SYRINGE SC SCH (22:25)
[2024-03-12 23:28] LABS: Urine Bacteria None Seen /hpf (None Seen)
[2024-03-12 23:51] LABS: Amphetamine Screen, Urine Neg (NEGATIVE); Barbiturate Scree,Urine Neg (NEGATIVE); Benzodiazephine Screen, Urine Neg (NEGATIVE); Cannabinoid Screen, Urine Neg (NEGATIVE); Cocaine Screen, Urine Neg (NEGATIVE); Opiate Scree,Urine Neg (NEGATIVE); Phencyclidine Screen, Urine Neg (NEGATIVE)
[2024-03-13] VITALS (9 sets, daily range): BP systolic 111–146; BP diastolic 62–75; PULSE 60–133; RESP 16–20; TEMP 97.7–98.5; O2SAT 95–98
[2024-03-13 00:29] LABS: Urine Blood 1+ /uL (Negative); Urine Clarity Clear (Clear); Urine Color Light-Yellow (Yellow); Urine Protein, UAD Negative (Negative); Urine Specific Gravity 1.014 (1.001-1.035); Urine Squamous Epithelial Cell FEW /hpf (<5); Urine Urobilinogen Normal (Negative); Urine WBC 2 /HPF (0-5); Urine pH 5.5 (5.0-9.0)
[2024-03-13] MEDS: AMIODARONE 360mg/200mL PREMIX 200 ML IV SCH ×2 (02:41→21:00)
[2024-03-13] MEDS: PANTOPRAZOLE 40 MG TAB PO SCH (06:02)
[2024-03-13] MEDS ORDERED: TRIA37.587 PO (06:06)
--- NOTE | 2024-03-13 06:48 | ECG ---
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
--- NOTE | 2024-03-13 06:48 | ECG ---
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
[2024-03-13] MEDS: ASPirin 81 mg TAB PO SCH (10:50)
[2024-03-13] MEDS: FUROSEMIDE 20 MG/2 ML VIAL IV SCH (10:52)
--- NOTE | 2024-03-13 11:34 | DVHINCON2 ---
Date Seen: Mar 13, 2024 Referring Physician MD Brooke resident Reason for Consultation A-flutter History of Present Illness This is a 64-year-old female patient who presents to emergency room with atrial flutter. The patient reports that she was initially seen by her primary care provider prior to emergency room arrival. She reports that while she was getting her vital signs taken at the primary doctor's office, she was told her heart rate was elevated. They then obtained an EKG which revealed atrial flutter and the patient was advised to come to the emergency room. Upon emergency room arrival, a twelve lead electrocardiogram done at this facility revealed atrial flutter with heart rate at 135 beats per minute. The patient denies any symptoms such as palpitations, shortness of breath, dizziness, etc.. Cardiology has now been consulted for further workup. 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 Patient denies any previous history of arrhythmias. Significant past medical history includes hypertension, hyperlipidemia, prediabetes, nephrolithiasis, left renal mass, tobacco use and obesity. Past Medical History Past medical history reviewed. No other significant than mentioned above. Past Surgical History Hernia repair Family History: Patient reports no known family medical history. Family History Family history reviewed. Social History Patient has a 10 pack-year history, quit smoking approximately four years ago Patient denies any illicit drug use Patient denies any alcohol use Allergies: Coded Allergies: Penicillins (Verified Allergy, Unknown, 01/03/15) Home Meds Active Scripts Losartan Potassium (Losartan Potassium) 25 Mg Tab, 1 TAB PO DAILY for 30 Days, #30 TAB 1 Refill Prov:CARLOS HARRIS RESIDENT 12/23/23 Metoprolol Succinate (Metoprolol Succinate Er) 25 Mg Tab, 1 TAB PO DAILY for 30 Days, #30 TAB 5 Refills Prov:CARLOS HARRIS RESIDENT 12/23/23 Reported Medications Hydrochlorothiazide W/Triamter (Dyazide 37.5/25MG) 1 Cap Cp, 1 CAP PO DAILY, #30 CAP 5 Refills 03/13/24 Aspirin (Aspir-Low) 81 Mg Tab, 81 MG PO DAILY for 30 Days, MG 12/20/23 Pravastatin Sodium (PRAVACHOL TABLET) 20 Mg Tb, 1 TAB PO DAILY 12/20/23 Cholecalciferol (VITAMIN D3) 2,000 Unit Tab, 1 CAP PO DAILY 12/20/23 Metformin Hydrochloride (Metformin Hcl Er) 500 Mg Tab, 1 TAB PO BID 12/20/23 Home Meds Home medications reviewed. Current Medications Current Medications Medications (Trade) Dose Ordered Sig/Jessica Route PRN Reason Start Time Stop Time Status Last Admin Nitroglycerin (Ntrostat Sublingual) 0.4 mg Q5MINP PRN SL FOR CHEST PAIN 03/12/24 21:30 Morphine Sulfate 2 mg Q30M PRN IV FOR CHEST PAIN 03/12/24 21:30 Aspirin 81 mg DAILY PO 03/13/24 10:00 03/13/24 10:50 Atorvastatin Calcium (Lipitor) 40 mg HS PO 03/12/24 22:00 03/12/24 22:22 Enoxaparin Sodium (Lovenox) 120 mg Q12HR SC 03/12/24 22:00 03/13/24 10:52 Pantoprazole Sodium (Protonix Tablet) 40 mg DAILY@0600 PO 03/13/24 06:00 03/13/24 06:02 Furosemide (Lasix Injection) 20 mg DAILY IV 03/13/24 10:00 03/13/24 10:52 Review of Systems Constitutional: No symptom reported Ears, Nose, & Throat: No symptom reported Eyes: No symptom reported Neurological: No symptoms reported Pulmonary/Respiratory: No symptoms reported Cardiovascular: No symptom reported Gastrointestinal: No symptom reported Genitourinary: No symptom reported Musculoskeletal: No symptom reported Skin: No symptom reported Psychiatric: No symptom reported Endocrine: No symptom reported Hematologic/Lymphatic: No symptom reported Vital Signs Vital Signs Date Time Temp Pulse Resp B/P (MAP) Pulse Ox O2 Delivery O2 Flow Rate FiO2 03/13/24 10:52 111/62 03/13/24 09:00 97.7 120 20 98 97.7 03/13/24 06:10 Room Air* 0 21 Physical Exam General Appearance: Cooperative. Morbidly obese Pulmonary/Respiratory: Clear, bilateral breaths sounds. Cardiovascular/Chest: Irregular rate and rhythm. Peripheral Pulses: 2+ Radial (R). 2+ Radial (L). 2+ Pedal (R). 2+ Pedal (L) Abdominal Exam: Normal bowel sounds. Ankle Exam: Negative ankle edema Lower extremities: Negative lower extremity edema Neuro/Mental Status: A/OX4, coherent. Thoughts/Psych: Normal thought pattern. Appropriate mood and affect. Good judgment and insight. Appearance: No acute distress. Skin Exam: Normal inspection. Normal color. Warm and dry. Labs/Diagnostic Data Labs Test 03/12/24 23:15 03/12/24 18:28 03/12/24 15:17 Range/Units Urine Color Light-yellow Yellow Urine Clarity Clear Clear Urine pH 5.5 5.0-9.0 Urine Specific [place] 1.014 1.001-1.035 Urine Protein Negative Negative Urine Ketones Negative Negative Urine Blood 1+ H Negative /uL Urine Nitrite Negative Negative Urine Bilirubin Negative Negative Urine Urobilinogen Normal Negative mg/dL Urine Leukocyte Esterase Negative Negative /uL Urine RBC 16 0 - 4 /hpf Urine Microscopic WBC 2 0-5 /HPF Urine Squamous Epithelial Cells Few <5 /hpf Urine Bacteria None seen None Seen /hpf Urine Glucose Normal Normal mg/dL Urine Opiates Screen Neg NEGATIVE Urine Fentanyl Screen Neg NEGATIVE Urine Barbiturates Screen Neg NEGATIVE Urine Phencyclidine Screen Neg NEGATIVE Urine Amphetamines Screen Neg NEGATIVE Urine Benzodiazepines Screen Neg NEGATIVE Urine Cocaine Screen Neg NEGATIVE Urine Cannabinoids Screen Neg NEGATIVE Magnesium Level 2.0 1.6-2.6 mg/dL Troponin I High Sensitivity 10 </=34 ng/L White Blood Count 8.1 4.4-10.8 10^3/uL Red Blood Count 4.76 4.0-5.20 10^6/uL Hemoglobin 13.1 12.2-16.2 g/dL Hematocrit 40.1 36.0-46.0 % Mean Corpuscular Volume 84.2 80.0-100.0 fL Mean Corpuscular Hemoglobin 27.5 L 28.0-32.0 pg Mean Corpuscular Hemoglobin Concent 32.7 32.0-36.0 g/dL Red Cell Distribution Width 15.4 H 11.8-14.3 % Platelet Count 268 140-450 10^3/uL Mean Platelet Volume 7.6 6.9-10.8 fL Neutrophils (%) (Auto) 68.3 37.0-80.0 % Lymphocytes (%) (Auto) 23.2 10.0-50.0 % Monocytes (%) (Auto) 6.7 0.0-12.0 % Eosinophils (%) (Auto) 0.8 0.0-7.0 % Basophils (%) (Auto) 1.0 0.0-2.0 % Neutrophils # (Auto) 5.5 1.6-8.6 10 ^3/uL Lymphocytes # (Auto) 1.9 0.4-5.4 10 ^3/uL Monocytes # (Auto) 0.5 0-1.3 10 ^3/uL Eosinophils # (Auto) 0.1 0-0.8 10 ^3/uL Basophils # (Auto) 0.1 0-0.2 10 ^3/uL Nucleated Red Blood Cells 0.1 % Sodium Level 140 136-145 mmol/L Potassium Level 4.5 3.5-5.1 mmol/L Chloride Level 107 98-107 mmol/L Carbon Dioxide Level 24 20-31 mmol/L Anion Gap 9 5-15 Blood Urea Nitrogen 21 9-23 mg/dL Creatinine 0.97 0.550-1.02 mg/dL Glomerular Filtration Rate Calc 66 >90 mL/min BUN/Creatinine Ratio 21.6 H 10.0-20.0 Serum Glucose 114 H 74-106 mg/dL Calcium Level 10.0 8.7-10.4 mg/dL B-Type Natriuretic Peptide 128.49 0-100 pg/mL Assessment Atrial flutter/atrial fibrillation, newly diagnosed Chronic HFmrEF, NYHA class II Hypertension Hyperlipidemia Left renal mass Tobacco use Morbidly obese Plan/Recommendation We will continue with the following plan/recommendations (Dr. Victoria): * Echocardiogram reveals EF 50%. * Previous echocardiogram from 12/20/23 reveals EF 45% * [id number] VASc score: 3 points, HAS-BLED score: 0 points * Therapeutic Lovenox while inpatient, transition to Eliquis prior to discharge * Beta-josé miguel for rate control, up titrate dose as tolerated by patient * Cardiac surveillance * Monitor and replete electrolytes as needed, keep potassium greater than four and magnesium greater than two Patient seen and examined at bedside with . At the time of assessment, the patient is in atrial fibrillation. We will recommend rate control at this time. Consider outpatient electrophysiology workup for underlying atrial flutter. Thank you for allowing us to care for this patient. Please call with any questions or concerns. Critical care time spent: 44 minutes This medical document was created using an electronic medical record system with voice recognition software and computerized dictation system. Although this document has been carefully reviewed, there might still be some phonetic and typographical errors. Occasional wrong-word or ``sound-alike substitutions may have occurred due to the inherent limitations of voice recognition software. These areas are purely typographical due to imperfections of the software programs and do not reflect any compromise in the patient's medical care. Please read the chart carefully and recognize, using context, where these substitutions have occurred. Plan discussed with: Patient NYHA Physical activity limitations: Class2(Slight)fatigue,sob (palpitatns, angina w activityv) Date of Service: Mar 13, 2024 Billing Provider: HANNAH VICTORIA MD Cardiology Common Codes: [id number] INP/OBS CARE (High) Cardiology Consultation Codes: [id number] CONSULT <45MIN PRISCILLA CHAVEZ Mar 13, 2024 11:34
[2024-03-13 11:59] LABS: Calcium 9.8 mg/dL (8.7-10.4); Chloride 106 mmol/L (98-107); Potassium 3.8 mmol/L (3.5-5.1); Sodium 138 mmol/L (136-145)
[2024-03-13 12:00] LABS: Anion Gap 8 (5-15); Carbon Dioxide 24 mmol/L (20-31)
[2024-03-13 12:06] LABS: Blood Urea Nitrogen 19 mg/dL (9-23); Magnesium 1.7 mg/dL (1.6-2.6)
[2024-03-13 12:13] LABS: Glucose 164 mg/dL (74-106)
[2024-03-13 12:39] LABS: LDL Cholesterol 119 mg/dL (< 100); Triglycerides 272 mg/dL (< 150)
[2024-03-13 12:40] LABS: Cholesterol 174 mg/dL (< 200)
[2024-03-13 12:43] LABS: HDL Cholesterol 36 mg/dL (40-59)
--- NOTE | 2024-03-13 12:55 | ECG ---
[facility] Test Date: 2024-03-12 Test Time: 19:25:30 Pat Name: BRIGHT ESPINO Department: er Room: 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
[2024-03-13 14:49] LABS: Basophils # (auto) 0 10 ^3/uL (0-0.2); Basophils % (auto) 0.6 % (0.0-2.0); Eosinophils # (auto) 0.1 10 ^3/uL (0-0.8); Eosinophils % (auto) 0.7 % (0.0-7.0); Hematocrit 37.1 % (36.0-46.0); Hemoglobin 12.1 g/dL (12.2-16.2); Lymphocytes # (auto) 1.4 10 ^3/uL (0.4-5.4); Lymphocytes % (auto) 19.3 % (10.0-50.0); Mean Corpuscular Hemoglobin 27.8 pg (28.0-32.0); Mean Corpuscular Hgb Conc. 32.6 g/dL (32.0-36.0); Mean Corpuscular Volume 85.3 fL (80.0-100.0); Monocytes # (auto) 0.4 10 ^3/uL (0-1.3); Neutrophils # (auto) 5.3 10 ^3/uL (1.6-8.6); Neutrophils % (auto) 73.4 % (37.0-80.0); Platelet Count (auto) 219 10^3/uL (140-450); Red Blood Cells 4.35 10^6/uL (4.0-5.20); Red Cell Distribution Width 15.2 % (11.8-14.3); White Blood Cell 7.2 10^3/uL (4.4-10.8)
--- NOTE | 2024-03-13 15:24 | DVHPNRES ---
Progress Note Date Seen: Mar 13, 2024 Resident Creating Document: MARGAUX DAVENPORT RESIDENT Medical Necessity Reason Pt with a Central, PICC or Fol: No Medical Necessity Reason ATRIAL FIBRILLATION Subjective Review of Systems This is a 63-year-old female with past medical history of hypertension kidney stones and prediabetes presented to the ED after regular evaluation at primary care physician's office. According to patient, she went to doctor's office for regular follow up after lab test. It was in the office that patient had her vitals checked and was noted to have elevated heart rare and irregualar rhythm. Patient advised recommended that she comes to the ED for further evaluation. She denied any chest pain nausea vomiting abdominal pain palpitation any history of her condition any previous history of irregular heartbeat. She saw she said she has pretty much been stable other than her blood pressure that she monitors. The ED for her vital parameters were within normal limits except for her heart rate which initially was 135 beats per minutes. Cr: 0.97--> 1.12. Tsh: 1.78. EKG shows atrial fibrillation, Echo pending. Patient started on amiodarone, and diltazem Constitutional: Denies fever no chills no feeling of malaise HEENT: Denies headache, ear pain, ear discharges, conjunctivitis, nasal discharge throat pain Cardiovascular: Denies chest pain, palpitation, orthopnea, PND, or pedal edema Respiratory: Denies shortness of breath, cough cough, sputum production, hemoptysis, GI: Denies abdominal pain, nausea, vomiting, diarrhea, hematemesis, hematochezia, : Denies frequency, urgency, hematuria, Endocrine: Denies unintentional weight gain or weight loss, feeling of hot flashes, Gomez: Denies easy bruising, bleeding disorders, epistaxis Musculoskeletal: Denies joint pains, muscle aches Psych: No evidence of depression, sharla, suicidal ideation Objective vital signs Vital Sign Date Time Temp Pulse Resp B/P (MAP) Pulse Ox O2 Delivery O2 Flow Rate FiO2 03/13/24 13:00 98.1 60 18 146/65 (92) 97 98.1 03/13/24 07:30 Room Air* 0 21 Total Intake and Output 03/12/24 03/12/24 03/13/24 15:00 23:00 07:00 Intake Total 66.66 ml 133.31 ml Balance 66.66 ml 133.31 ml medications Current Medications Medications Dose Ordered Sig/Jessica Route Start Time Stop Time Status Last Admin Dose Admin Nitroglycerin 0.4 mg Q5MINP PRN SL 03/12/24 21:30 Morphine Sulfate 2 mg Q30M PRN IV 03/12/24 21:30 Aspirin 81 mg DAILY PO 03/13/24 10:00 03/13/24 10:50 81 MG Atorvastatin Calcium 40 mg HS PO 03/12/24 22:00 03/12/24 22:22 40 MG Pantoprazole Sodium 40 mg DAILY@0600 PO 03/13/24 06:00 03/13/24 06:02 40 MG Furosemide 20 mg DAILY IV 03/13/24 10:00 03/13/24 10:52 20 MG Metoprolol Succinate 25 mg DAILY PO 03/14/24 10:00 Empaglifozin 10 mg DAILY PO 03/14/24 10:00 Enoxaparin Sodium 120 mg Q12HR SC 03/13/24 22:00 Examination General Appearance: Morbidly obese female, Alert, Oriented X3, Cooperative, No acute distress, HEENT: Atraumatic, PERRLA, EOMI, Mucous membrane moist/pink Respiratory: Clear to auscultation, Normal air movement Cardiovascular: Tachycardia, irregularly irregular heart rate Abdominal: NO distention, no tenderness, bowel sounds present, no scars noted Extremities: No clubbing, No cyanosis, No edema, Normal pulses, No tenderness/swelling Skin: No rashes, No breakdown, No significant lesion Neuro: Normal gait, Normal speech, Strength at 5/5 X4 ext, Normal tone, Sensation intact, Cranial nerves 3-12 NL, Reflexes 2+ Psych/Mental Status: Mental status NL, Mood NL laboratory and microbiology Laboratory Tests 03/13/24 13:03 03/13/24 11:13 Test 03/13/24 11:13 Range/Units Serum Glucose 164 H 74-106 mg/dL Problem List/Assessment/Plan Problem List/Assessment/Plan Assessment Newly diagnosed atrial flutter/atrial fibrillation Hypertension Hyperlipidemia History of kidney stones Morbid obesity, BMI 44.7 Elevated creatinine but not SHARRI Chronic HFmrEF ( 12/2023) Tobacco use Plan Continue amiodarone and Cardizem Repeat EKG Echo Cardiology consult Continue GDM T Continue antihypertensive medication Continue atorvastatin Tele monitoring Nicotine patch p.r.n. Diet: Regular DVT prophylaxis: None, patient is mobile moving Code status: Full Goal of care discussed for more than 35 minute His plan discussed and reviewed with Dr. Turner Plan discussed with: Patient MARGAUX DAVENPORT RESIDENT Mar 13, 2024 15:24
--- NOTE | 2024-03-13 15:35 | DVHSR ---
APPROVED REPORT EXAM: Two-dimensional and M-mode echocardiogram with Doppler and color Doppler. Blood Pressure: 111/62 mmHg INDICATION New onset A flutter RISK FACTORS Height: 5'4", Weight: 260 DIMENSIONS LVDd4.9 (3.8-5.7cm)LA (2D) (1.9-4.0cm)Aortic Root (2.0-3.7cm) LVDs3.7 (2.5-4.0cm)LA (MM) (1.9-4.0cm)Aortic Cusp Exc (1.5-2.0cm) EF (%) 49.0 (55-70%)Rt. Atrium (1.9-4.0cm)Asc. Aorta cm Mitral Valve MitralMitral Stenosis E/A ratio0.02D MVAcm2 LEFT VENTRICLE The left ventricle is of normal size. Wall thickness appears to be normal. Ejection fraction is low normal and is estimated at 50%. There is no regional wall motion abnormalities. Patient was tachyc ardic at the time of the study which limits interpretation. RIGHT VENTRICLE Right ventricular appears to be of normal size. Systolic function is likely normal. ATRIA Both atria are mildly dilated in size. MITRAL VALVE Appears to be normal in structure. No significant mitral regurgitation. Other Information Quality : Technically LimitedRhythm : Technically limited study due to body habitus. Conclusion This is a limited echo done to assess ejection fraction. Patient was tachycardic at the time of the study with heart rate in the 130s. Normal left ventricular size with low-normal systolic function. The ejection fraction is estimated at 50%. Normal right ventricular size and systolic function. No pericardial effusion. No significant change compared to prior echo reported in December of 2023.
[2024-03-13] MEDS: MAGNESIUM SULFATE 1GM/100ML 100 ML IV ONE (17:09)
[2024-03-13] MEDS: METOPROLOL SUCCINATE XL 50 MG TAB PO ONE (17:09)
[2024-03-13] MEDS: ENOXAPARIN SOD 120 MG/0.8 ML SYRINGE SC SCH (21:09)
[2024-03-13] MEDS: traMADol HCL 50 MG TAB PO ONE (21:11)
[2024-03-14] VITALS (7 sets, daily range): BP systolic 121–146; BP diastolic 68–89; PULSE 86–131; RESP 18–20; TEMP 97.9–98.1; O2SAT 95–98
[2024-03-14 05:39] LABS: Basophils # (auto) 0 10 ^3/uL (0-0.2); Basophils % (auto) 0.7 % (0.0-2.0); Eosinophils # (auto) 0.1 10 ^3/uL (0-0.8); Eosinophils % (auto) 1.1 % (0.0-7.0); Hematocrit 35.9 % (36.0-46.0); Hemoglobin 11.8 g/dL (12.2-16.2); Lymphocytes # (auto) 1.7 10 ^3/uL (0.4-5.4); Lymphocytes % (auto) 24.9 % (10.0-50.0); Mean Corpuscular Hgb Conc. 32.9 g/dL (32.0-36.0); Mean Corpuscular Volume 84.9 fL (80.0-100.0); Monocytes # (auto) 0.5 10 ^3/uL (0-1.3); Monocytes % (auto) 7.9 % (0.0-12.0); Neutrophils # (auto) 4.3 10 ^3/uL (1.6-8.6); Neutrophils % (auto) 65.4 % (37.0-80.0); Platelet Count (auto) 199 10^3/uL (140-450); Red Blood Cells 4.23 10^6/uL (4.0-5.20); Red Cell Distribution Width 14.9 % (11.8-14.3); White Blood Cell 6.6 10^3/uL (4.4-10.8)
[2024-03-14 05:53] LABS: Anion Gap 12 (5-15); Carbon Dioxide 24 mmol/L (20-31); Chloride 102 mmol/L (98-107); Sodium 138 mmol/L (136-145)
[2024-03-14 05:54] LABS: Calcium 9.7 mg/dL (8.7-10.4)
[2024-03-14 05:59] LABS: BUN/Creatinine Ratio 17.3 (10.0-20.0); Blood Urea Nitrogen 18 mg/dL (9-23)
[2024-03-14 06:04] LABS: Glucose 135 mg/dL (74-106); Potassium 3.4 mmol/L (3.5-5.1)
[2024-03-14] MEDS: EMPAGLIFLOZIN 10 MG TAB PO SCH (09:05)
[2024-03-14] MEDS: METOPROLOL SUCCINATE XL 50 MG TAB PO SCH (09:05)
[2024-03-14] MEDS: POTASSIUM CHL 20 Meq TABLET PO ONE (09:10)
[2024-03-14] MEDS ORDERED: METOPROLOL SUCCINATE XL 50 MG TAB PO SCH (10:00)
[2024-03-14] MEDS ORDERED: APIX5TAB PO (11:43)
--- NOTE | 2024-03-14 14:22 | DVHPN2 ---
Consult Progress Note Subjective Other Systems: Patient remains in atrial fibrillation with uncontrolled rate on monitor (120-130's) Objective vital signs Vital Sign Date Time Temp Pulse Resp B/P (MAP) Pulse Ox O2 Delivery O2 Flow Rate FiO2 03/14/24 12:30 97.9 89 18 139/83 (101) 98 97.9 03/14/24 08:00 Room Air* 0 21 Total Intake and Output 03/13/24 03/13/24 03/14/24 15:00 23:00 07:00 Intake Total 2116.66 ml 420 ml Output Total 850 ml Balance 2116.66 ml -430 ml medications Current Medications Medications Dose Ordered Sig/Jessica Route Start Time Stop Time Status Last Admin Dose Admin Nitroglycerin 0.4 mg Q5MINP PRN SL 03/12/24 21:30 Morphine Sulfate 2 mg Q30M PRN IV 03/12/24 21:30 Aspirin 81 mg DAILY PO 03/13/24 10:00 03/14/24 09:04 81 MG Atorvastatin Calcium 40 mg HS PO 03/12/24 22:00 03/13/24 21:09 40 MG Pantoprazole Sodium 40 mg DAILY@0600 PO 03/13/24 06:00 03/14/24 05:38 40 MG Furosemide 20 mg DAILY IV 03/13/24 10:00 03/14/24 09:06 20 MG Empaglifozin 10 mg DAILY PO 03/14/24 10:00 03/14/24 09:05 10 MG Metoprolol Succinate 50 mg DAILY PO 03/14/24 10:00 03/14/24 09:05 50 MG Apixaban 5 mg BID PO 03/14/24 22:00 Examination: GENERAL:Normal, LUNGS:Normal, CVS:Abnormal (Atrial fibrillation with uncontrolled rate), NEURO:Normal laboratory and microbiology Laboratory Tests 03/14/24 04:49 Test 03/14/24 04:49 Range/Units Serum Glucose 135 H 74-106 mg/dL Problem List/Assessment/Plan Problem List/Assessment/Plan Atrial flutter/atrial fibrillation, newly diagnosed Chronic HFpEF, NYHA class II Hypertension Hyperlipidemia Left renal mass Tobacco use Morbidly obese Plan/Recommendation (Dr. Victoria): * Echocardiogram reveals EF 50%. * Previous echocardiogram from 12/20/23 reveals EF 45% * [id number] VASc score: 3 points, HAS-BLED score: 0 points * NOAC therapy with Eliquis * Beta-josé miguel for rate control, up titrate dose as tolerated by patient * Cardiac surveillance * Monitor and replete electrolytes as needed, keep potassium greater than four and magnesium greater than two Patient seen and examined at bedside with . At the time of assessment, the patient remains in atrial fibrillation with uncontrolled rate. We will up titrate her metoprolol dose as tolerated. Consider outpatient electrophysiology workup for underlying atrial flutter. Thank you for allowing us to care for this patient. Please call with any questions or concerns. This medical document was created using an electronic medical record system with voice recognition software and computerized dictation system. Although this document has been carefully reviewed, there might still be some phonetic and typographical errors. Occasional wrong-word or ``sound-alike substitutions may have occurred due to the inherent limitations of voice recognition software. These areas are purely typographical due to imperfections of the software programs and do not reflect any compromise in the patient's medical care. Please read the chart carefully and recognize, using context, where these substitutions have occurred. Plan discussed with: Patient Date of Service: Mar 14, 2024 Billing Provider: HANNAH VICTORIA MD Common Visit Codes: [id number] INP/OBS CARE(HIGH) PRISCILLA CHAVEZ KST OPERATOR Mar 14, 2024 14:22
[2024-03-14] MEDS: METOPROLOL SUCCINATE XL 50 MG TAB PO ONE (14:51)
--- NOTE | 2024-03-14 16:40 | DVHPNRES ---
Progress Note Date Seen: Mar 14, 2024 Resident Creating Document: MARGAUX DAVENPORT RESIDENT Medical Necessity Reason Pt with a Central, PICC or Fol: No Medical Necessity Reason atrial fibrillation Subjective Review of Systems This is a 63-year-old female with past medical history of hypertension kidney stones and prediabetes presented to the ED after regular evaluation at primary care physician's office. According to patient, she went to doctor's office for regular follow up after lab test. It was in the office that patient had her vitals checked and was noted to have elevated heart rare and irregualar rhythm. Patient advised recommended that she comes to the ED for further evaluation. She denied any chest pain nausea vomiting abdominal pain palpitation any history of her condition any previous history of irregular heartbeat. She saw she said she has pretty much been stable other than her blood pressure that she monitors. The ED for her vital parameters were within normal limits except for her heart rate which initially was 135 beats per minutes. Cr: 0.97--> 1.12. Tsh: 1.78. EKG shows atrial fibrillation, Echo pending. Patient started on amiodarone, and diltazem PN 03/14/2024: Patient is seen and examined today at the bedside lying whilst she was eating breakfast at my time of visit. Patient denied any chest pain shortness of breath palpitation or dizziness. Patient mentioned that at home does not work as much because of the pain. Patient is still in Afib and heart rate at the time of my visit was 132. Communicated with Cardiology in a agreed to increase her metoprolol to at least 50 mg daily. Per cardiology note, there is is a possibility of an outpatient electrophoresis given the underlying atrial flutter. I switch patient from Lovenox to Eliquis 5 mg b.i.d. and also sent in same medication dosage to her pharmacy in anticipation of discharging patient tomorrow. Objective vital signs Vital Sign Date Time Temp Pulse Resp B/P (MAP) Pulse Ox O2 Delivery O2 Flow Rate FiO2 03/14/24 14:51 98 138/70 03/14/24 12:30 97.9 18 98 97.9 03/14/24 08:00 Room Air* 0 21 Total Intake and Output 03/13/24 03/13/24 03/14/24 15:00 23:00 07:00 Intake Total 2116.66 ml 420 ml Output Total 850 ml Balance 2116.66 ml -430 ml medications Current Medications Medications Dose Ordered Sig/Jessica Route Start Time Stop Time Status Last Admin Dose Admin Nitroglycerin 0.4 mg Q5MINP PRN SL 03/12/24 21:30 Morphine Sulfate 2 mg Q30M PRN IV 03/12/24 21:30 Aspirin 81 mg DAILY PO 03/13/24 10:00 03/14/24 09:04 81 MG Atorvastatin Calcium 40 mg HS PO 03/12/24 22:00 03/13/24 21:09 40 MG Pantoprazole Sodium 40 mg DAILY@0600 PO 03/13/24 06:00 03/14/24 05:38 40 MG Furosemide 20 mg DAILY IV 03/13/24 10:00 03/14/24 09:06 20 MG Empaglifozin 10 mg DAILY PO 03/14/24 10:00 03/14/24 09:05 10 MG Apixaban 5 mg BID PO 03/14/24 22:00 Metoprolol Succinate 100 mg DAILY PO 03/15/24 10:00 Examination General Appearance: Morbidly obese female, Alert, Oriented X3, Cooperative, No acute distress, HEENT: Atraumatic, PERRLA, EOMI, Mucous membrane moist/pink Respiratory: Clear to auscultation, Normal air movement Cardiovascular: Tachycardia, irregularly irregular heart rate Abdominal: NO distention, no tenderness, bowel sounds present, no scars noted Extremities: No clubbing, No cyanosis, No edema, Normal pulses, No tenderness/swelling Skin: No rashes, No breakdown, No significant lesion Neuro: Normal gait, Normal speech, Strength at 5/5 X4 ext, Normal tone, Sensation intact, Cranial nerves 3-12 NL, Reflexes 2+ Psych/Mental Status: Mental status NL, Mood NL laboratory and microbiology Laboratory Tests 03/14/24 04:49 Test 03/14/24 04:49 Range/Units Serum Glucose 135 H 74-106 mg/dL Labs and/or images reviewed: Labs reviewed by me, Image(s) reviewed by me Problem List/Assessment/Plan Problem List/Assessment/Plan Assessment Newly diagnosed atrial flutter/atrial fibrillation Hypertension Hyperlipidemia Diabetes, hgb1ac 6.5 History of kidney stones Morbid obesity, BMI 44.7 Elevated creatinine but not SHARRI Chronic HFpEF (12/2023) Tobacco use disorder Plan Continue Metoprolol for rate control Repeat EKG Echo Cardiology consult Continue GDM T Continue antihypertensive medication Continue atorvastatin Tele monitoring Nicotine patch p.r.n. Diet: Regular DVT prophylaxis: switch to eliquis 5mg bid Code status: Full Goal of care discussed for 20 minutes Counseled on tobacco use cessation for [address] Alfaro Plan discussed with: Patient, Other (RN) My Orders My Orders Orders - MARGAUX DAVENPORT RESIDENT Procedure Category Date Status Time Apixaban (Eliquis) PHA 03/14/24 In Process 22:00 Addendum Addendum Addendum I was physically present for the kaplan portions of the service provided to patient by THE RESIDENT. I have reviewed the documentation, discussed the case with resident and agree with the resident's documentation except as noted. Also the patient's clinical case was discussed with the patient's nurse. This medical document was created using an electronic medical record system with computerized dictation system. Although this document has been carefully reviewed, there might still be some phonetic and typographical errors. These areas are purely typographical due to imperfections of the software programs, and do not reflect any compromise in the patient's medical care. Late signature. Date of Service: Mar 14, 2024 Billing Provider: ALPESH ALFARO MD Common Visit Codes: [id number] INP/OBS CARE(HIGH) Secondary Visit Codes: [id number] CHNG SMOKING >10MIN (16 minutes), 68456- ADVANCED CARE PLAN 30 MINUTES (20 minutes) MARGAUX DAVENPORT RESIDENT Mar 14, 2024 16:40 ALPESH ALFARO MD Mar 15, 2024 19:24
[2024-03-14] MEDS: APIXABAN 5 MG TAB PO SCH (21:21)
[2024-03-14] MEDS: DOCUSATE SOD 100 MG CAP PO ONE (21:21)
[2024-03-15 01:00] VITALS: BP 119/79; PULSE 117; RESP 19; TEMP 97.8; O2SAT 96
[2024-03-15 05:00] VITALS: BP 113/88; PULSE 124; RESP 18; TEMP 97.8; O2SAT 97
[2024-03-15 07:37] LABS: Alanine Aminotransferase 12 U/L (7-40); Albumin 4.6 g/dL (3.2-4.8); Alkaline Phosphatase 87 U/L (46-116); Anion Gap 11 (5-15); Blood Urea Nitrogen 23 mg/dL (9-23); Calcium 9.9 mg/dL (8.7-10.4); Carbon Dioxide 26 mmol/L (20-31); Chloride 102 mmol/L (98-107); Potassium 3.7 mmol/L (3.5-5.1); Sodium 139 mmol/L (136-145)
[2024-03-15 07:38] LABS: Aspartate Aminotransferase 13 U/L (13-40); Glucose 120 mg/dL (74-106); Total Protein 6.7 g/dL (5.7-8.2)
[2024-03-15 08:00] VITALS: PULSE 131; RESP 16; O2SAT 97
[2024-03-15 08:49] VITALS: BP 141/78; PULSE 110; RESP 17; TEMP 98.1; O2SAT 98
[2024-03-15] MEDS: METOPROLOL SUCCINATE XL 50 MG TAB PO SCH (08:53)
--- NOTE | 2024-03-15 10:31 | DVHPN2 ---
Subjective Doing well with no complaints Reviewed: Care Plan, H&P, Labs, Medications, Previous Orders, Radiology, Other (Consultation) Changes from previous H/P or p: Changes Objective Vitals Vital Signs Date Time Temp Pulse Resp B/P (MAP) Pulse Ox O2 Delivery O2 Flow Rate FiO2 03/15/24 08:53 110 141/78 03/15/24 08:49 98.1 17 98 98.1 03/14/24 20:00 Room Air* 0 21 Intake/Output Intake and Output 03/15/24 07:00 Intake Total 1150 ml Output Total 800 ml Balance 350 ml Intake Oral 1150 ml Output Urine Total 800 ml # Voids 3 # Bowel Movements 1 General Appearance: Alert, Oriented X3, Cooperative, No acute distress, Other (Morbidly obese) HEENT: Atraumatic Lungs: Clear to auscultation, Normal air movement Cardiovascular: Normal S1, Normal S2, Other (Irregularly irregular) Abdomen: Normal bowel sounds, Soft, No tenderness Neuro: Normal speech, Cranial nerves 3-12 NL Psych/Mental Status: Mental status NL, Mood NL Medications Current Medications Medications Dose Ordered Sig/Jessica Route Start Time Stop Time Status Last Admin Dose Admin Nitroglycerin 0.4 mg Q5MINP PRN SL 03/12/24 21:30 Morphine Sulfate 2 mg Q30M PRN IV 03/12/24 21:30 Aspirin 81 mg DAILY PO 03/13/24 10:00 03/15/24 08:53 81 MG Atorvastatin Calcium 40 mg HS PO 03/12/24 22:00 03/14/24 21:21 40 MG Pantoprazole Sodium 40 mg DAILY@0600 PO 03/13/24 06:00 03/15/24 05:41 40 MG Furosemide 20 mg DAILY IV 03/13/24 10:00 03/15/24 08:53 20 MG Empaglifozin 10 mg DAILY PO 03/14/24 10:00 03/15/24 08:53 10 MG Apixaban 5 mg BID PO 03/14/24 22:00 03/15/24 08:54 5 MG Metoprolol Succinate 100 mg DAILY PO 03/15/24 10:00 03/15/24 08:53 100 MG Docusate Sodium 100 mg BID PO 03/15/24 22:00 Laboratory Results Laboratory Tests 03/14/24 04:49 03/15/24 06:46 Chemistry Test 03/15/24 06:46 Albumin 4.6 g/dL (3.2-4.8) Calcium Level 9.9 mg/dL (8.7-10.4) Total Protein 6.7 g/dL (5.7-8.2) LFT Test 03/15/24 06:46 Alanine Aminotransferase (ALT) 12 U/L (7-40) Alkaline Phosphatase 87 U/L (46-116) Aspartate Amino Transferase (AST) 13 U/L (13-40) Total Bilirubin 1.0 mg/dL (0.2-1.0) Urinalysis Test 03/12/24 23:15 Urine Color Light-yellow (Yellow) Urine Clarity Clear (Clear) Urine pH 5.5 (5.0-9.0) Urine Specific [place] 1.014 (1.001-1.035) Urine Protein Negative (Negative) Urine Ketones Negative (Negative) Urine Blood 1+ /uL (Negative) H Urine Nitrite Negative (Negative) Urine Bilirubin Negative (Negative) Urine Urobilinogen Normal mg/dL (Negative) Urine Leukocyte Esterase Negative /uL (Negative) Urine RBC 16 /hpf (0 - 4) Urine Microscopic WBC 2 /HPF (0-5) Urine Squamous Epithelial Cells Few /hpf (<5) Urine Bacteria None seen /hpf (None Seen) Urine Glucose Normal mg/dL (Normal) Labs and/or images reviewed: Labs reviewed by me, Image(s) reviewed by me Assessment/Plan Assessment/Plan Covering Dr. Turner: #Newly diagnosed atrial flutter/atrial fibrillation; rate controlled; tolerated well apixaban; cleared by Cardiology to be discharged; treated initially with subcutaneous enoxaparin therapeutic dose; will be discharged when apixaban is at bedside; prescribed increased dose of metoprolol succinate of 100 mg daily from 25 mg daily; advised to follow up with Cardiology within 2 to 4 weeks #Hypertensive kidney and heart disease; not in exacerbation; reviewed echocardiogram from last year; chronic diastolic heart failure; to resume home antihypertensive medications; to avoid nephrotoxic agents; advised to follow up with Cardiology within 2 to 4 weeks #Metabolic syndrome with hyperlipidemia, and diabetes mellitus type 2; to resume home medications upon discharge; advised to follow up with primary care provider within 1 to 2 weeks #Morbid obesity; counseled the patient importance of adopting healthy lifestyle with diet and exercise in order to lose weight; advised to follow up with primary care provider within 1 to 2 weeks #Diabetes mellitus type 2; to resume home medications upon discharge; advised to follow up with primary care provider within 1 to 2 weeks #Hyperlipidemia; to resume home medications upon discharge; advised to follow up with primary care provider within 1 to 2 weeks #Tobacco use disorder; counseled on cessation; advised to follow up with the primary care provider within 1 to 2 weeks To be discharged home on apixaban is at bedside; prescription was sent to pharmacy on March 14, 2024. Late Entry. This medical document was created using an electronic medical record system with computerized dictation system. Although this document has been carefully reviewed, there might still be some phonetic and typographical errors. These areas are purely typographical due to imperfections of the software programs, and do not reflect any compromise in the patient's medical care. Plan discussed with: Patient, Other (Nurse) Date of Service: Mar 15, 2024 Billing Provider: ALPESH ALFARO MD Common Visit Codes: [id number] INP/OBS CARE(MOD) ALPESH ALFARO MD Mar 15, 2024 10:31
[2024-03-15] MEDS ORDERED: METO-6 PO (11:11)
--- NOTE | 2024-03-15 11:17 | DVHDS2 ---
Discharge Summary Date of Admission Mar 12, 2024 at 21:25 Date of Discharge: Mar 15, 2024 Admitting Diagnosis Sent to ER by her primary care provider due to irregularly irregular tachycardia Labs/Diagnostic Data: Laboratory Results Test 03/15/24 06:46 03/14/24 04:49 03/13/24 13:03 03/13/24 11:13 Sodium Level 139 mmol/L (136-145) Potassium Level 3.7 mmol/L (3.5-5.1) Chloride Level 102 mmol/L (98-107) Carbon Dioxide Level 26 mmol/L (20-31) Anion Gap 11 (5-15) Blood Urea Nitrogen 23 mg/dL (9-23) Creatinine 1.00 mg/dL (0.550-1.02) Glomerular Filtration Rate Calc 63 mL/min (>90) BUN/Creatinine Ratio 23.0 (10.0-20.0) Serum Glucose 120 mg/dL (74-106) Calcium Level 9.9 mg/dL (8.7-10.4) Total Bilirubin 1.0 mg/dL (0.2-1.0) Aspartate Amino Transferase (AST) 13 U/L (13-40) Alanine Aminotransferase (ALT) 12 U/L (7-40) Alkaline Phosphatase 87 U/L (46-116) Total Protein 6.7 g/dL (5.7-8.2) Albumin 4.6 g/dL (3.2-4.8) White Blood Count 6.6 10^3/uL (4.4-10.8) Red Blood Count 4.23 10^6/uL (4.0-5.20) Hemoglobin 11.8 g/dL (12.2-16.2) Hematocrit 35.9 % (36.0-46.0) Mean Corpuscular Volume 84.9 fL (80.0-100.0) Mean Corpuscular Hemoglobin 28.0 pg (28.0-32.0) Mean Corpuscular Hemoglobin Concent 32.9 g/dL (32.0-36.0) Red Cell Distribution Width 14.9 % (11.8-14.3) Platelet Count 199 10^3/uL (140-450) Mean Platelet Volume 7.8 fL (6.9-10.8) Neutrophils (%) (Auto) 65.4 % (37.0-80.0) Lymphocytes (%) (Auto) 24.9 % (10.0-50.0) Monocytes (%) (Auto) 7.9 % (0.0-12.0) Eosinophils (%) (Auto) 1.1 % (0.0-7.0) Basophils (%) (Auto) 0.7 % (0.0-2.0) Neutrophils # (Auto) 4.3 10 ^3/uL (1.6-8.6) Lymphocytes # (Auto) 1.7 10 ^3/uL (0.4-5.4) Monocytes # (Auto) 0.5 10 ^3/uL (0-1.3) Eosinophils # (Auto) 0.1 10 ^3/uL (0-0.8) Basophils # (Auto) 0 10 ^3/uL (0-0.2) Nucleated Red Blood Cells 0.0 % Magnesium Level 2.0 mg/dL (1.6-2.6) Hemoglobin A1c 6.5 % A1C (<5.7) Triglycerides Level 272 mg/dL (< 150) Cholesterol Level 174 mg/dL (< 200) LDL Cholesterol 119 mg/dL (< 100) HDL Cholesterol 36 mg/dL (40-59) Thyroid Stimulating Hormone (TSH) 1.78 uIU/mL (0.55-4.78) Test 03/12/24 23:15 03/12/24 18:28 03/12/24 15:17 Urine Color Light-yellow (Yellow) Urine Clarity Clear (Clear) Urine pH 5.5 (5.0-9.0) Urine Specific [place] 1.014 (1.001-1.035) Urine Protein Negative (Negative) Urine Ketones Negative (Negative) Urine Blood 1+ /uL (Negative) Urine Nitrite Negative (Negative) Urine Bilirubin Negative (Negative) Urine Urobilinogen Normal mg/dL (Negative) Urine Leukocyte Esterase Negative /uL (Negative) Urine RBC 16 /hpf (0 - 4) Urine Microscopic WBC 2 /HPF (0-5) Urine Squamous Epithelial Cells Few /hpf (<5) Urine Bacteria None seen /hpf (None Seen) Urine Glucose Normal mg/dL (Normal) Urine Opiates Screen Neg (NEGATIVE) Urine Fentanyl Screen Neg (NEGATIVE) Urine Barbiturates Screen Neg (NEGATIVE) Urine Phencyclidine Screen Neg (NEGATIVE) Urine Amphetamines Screen Neg (NEGATIVE) Urine Benzodiazepines Screen Neg (NEGATIVE) Urine Cocaine Screen Neg (NEGATIVE) Urine Cannabinoids Screen Neg (NEGATIVE) Troponin I High Sensitivity 10 ng/L (</=34) B-Type Natriuretic Peptide 128.49 pg/mL (0-100) Other Laboratory Tests 03/15/24 06:46 03/14/24 04:49 Brief Hx & Hospital Course: Covering Dr. Turner: A 64-year-old female patient; multiple comorbidities; who was sent to the emergency department by her primary care provider due to exam finding of irregularly irregular tachycardia. Details as below: #Newly diagnosed atrial flutter/atrial fibrillation; rate controlled; tolerated well apixaban; cleared by Cardiology to be discharged; treated initially with subcutaneous enoxaparin therapeutic dose; will be discharged when apixaban is at bedside; prescribed increased dose of metoprolol succinate of 100 mg daily from 25 mg daily; advised to follow up with Cardiology within 2 to 4 weeks #Hypertensive kidney and heart disease; not in exacerbation; reviewed echocardiogram from last year; chronic diastolic heart failure; to resume home antihypertensive medications; to avoid nephrotoxic agents; advised to follow up with Cardiology within 2 to 4 weeks #Metabolic syndrome with hyperlipidemia, and diabetes mellitus type 2; to resume home medications upon discharge; advised to follow up with primary care provider within 1 to 2 weeks #Morbid obesity; counseled the patient importance of adopting healthy lifestyle with diet and exercise in order to lose weight; advised to follow up with primary care provider within 1 to 2 weeks #Diabetes mellitus type 2; to resume home medications upon discharge; advised to follow up with primary care provider within 1 to 2 weeks #Hyperlipidemia; to resume home medications upon discharge; advised to follow up with primary care provider within 1 to 2 weeks #Tobacco use disorder; counseled on cessation; advised to follow up with the primary care provider within 1 to 2 weeks Apixaban 5 mg twice a day; is at bedside; the patient was discharged home Late Entry. This medical document was created using an electronic medical record system with computerized dictation system. Although this document has been carefully reviewed, there might still be some phonetic and typographical errors. These areas are purely typographical due to imperfections of the software programs, and do not reflect any compromise in the patient's medical care. Consults/Reason for consult Cardiology for irregularly irregular tachycardia Condition at Discharge: Stable Final Diagnosis/Problems List Newly diagnosed atrial flutter/fibrillation Secondary Diagnosis: As above Discharge Disposition: Home Discharge Instruct/Medications Diet: Cardiac 2g Na,low cholest Activity: No Restrictions, As Tolerated Follow Up/Referral: Follow up with the discharge clinic on March 20, 2024//follow up with PCP within 1-2 weeks//follow-up with cardiology within 2-4 weeks. Medications: Metoprolol succinate since from 25 mg daily to 100 mg daily; apixaban 5 mg twice a day. Continue rest of home medications. Discharge Statement: "Patient was advised to return to the ER or call 911 if any headaches, dizziness, shortness of breath, chest pain, abdominal pain, bleeding, fevers, or worsening of medical condition. Patient was counseled about treatment plan, medications, possible side effects, patientverbalized understanding. All questions were answered to the best of my ability. This discharge took greater then 30 minutes in planning, reviewing documentation, counseling the patient, and discussing with other team members." ASSESSMENT ASSESSMENT Assessment Newly diagnosed atrial flutter/fibrillation Date of Service: Mar 15, 2024 Billing Provider: ALPESH ALFARO MD Common Visit Codes: [id number] DISCH DAY >30min ALPESH ALFARO MD Mar 15, 2024 11:17
[2024-03-15 11:37] VITALS: BP 141/78; PULSE 110; RESP 17; TEMP 98.1; O2SAT 98
[2024-03-15 11:49] VITALS: BP 141/78; PULSE 110; RESP 17; TEMP 98.7; O2SAT 98
[2024-03-15] MEDS ORDERED: DOCUSATE SOD 100 MG CAP PO SCH (22:00)
== END 2024-03-15 12:30 | disposition home or self-care (01) | DRG 201 ==
LOC: ER 14:39 → TELE 21:25 → TELE-WESTW 03-13 04:56
PROVIDERS: ADMIT Student in an Organized Health Care Education/Training Program; ATTEND Emergency Medicine
DX: I48.92 Unspecified atrial flutter (principal); E11.22 Type 2 diabetes mellitus with diabetic chronic kidney disease; I13.0 Hypertensive heart and chronic kidney disease with heart failure and stage 1 through stage 4 chronic kidney disease, or unspecified chronic kidney disease; I50.42 Chronic combined systolic (congestive) and diastolic (congestive) heart failure; I48.91 Unspecified atrial fibrillation; K76.0 Fatty (change of) liver, not elsewhere classified; E66.01 Morbid (severe) obesity due to excess calories; N18.9 Chronic kidney disease, unspecified; E78.5 Hyperlipidemia, unspecified; K57.30 Diverticulosis of large intestine without perforation or abscess without bleeding; F17.200 Nicotine dependence, unspecified, uncomplicated; N28.89 Other specified disorders of kidney and ureter; E88.810 Metabolic syndrome; Z68.41 Body mass index [BMI] 40.0-44.9, adult; Z87.442 Personal history of urinary calculi; Z79.01 Long term (current) use of anticoagulants; Z79.4 Long term (current) use of insulin
CPT/HCPCS: 36415; 71045; 80048; 80053; 80061; 80307; 81001; 83036; 83735; 83880; 84443; 84484; 85025; 93005; 93306; 99291; G0378